=== PATIENT | female | born 1990 | race Caucasian/White ===

== ENCOUNTER 2017-04-30 20:02 | Emergency (ER) | payer MEDICAID ==
--- NOTE | 2017-04-30 22:05 | ED Physician Chart ---
ED Chief Complaint/HPI - Patient Information Date Seen:: 04/30/17 Time Seen:: 22:04 Chief Complaint:: Abscess History of Present Illness:: 27 yo female walked to ER due to left lower leg abscess with drainage for 1 week. Patient stated history of self-injecting drugs into left leg. She had previous abscess on the left lower leg 1 month ago. She denied fever or chills at this time. Vitals:: Vital Signs - 8 hr 04/30/17 20:05 Temp 98.0 F HR 110 RR 18 BP 138/92 O2 Sat % 100 ED Review of Systems - Review of Systems General/Constitutional: No fever, No chills Skin: Skin lesions Head: No headache Eyes: No loss of vision ENT: No earache Neck: No neck pain Cardio Vascular: No chest pain Pulmonary: No SOB GI: No nausea, No vomiting Musculoskeletal: Other (left leg wound pain) ED Past Medical History - Past Medical History Past Medical History: No significant medical hx Social History: Smoker, No Alcohol, Illicit Drug Use (heroin) Psychiatricy History: Bipolar, Other (Psychosis, Anxiety) Family Medical History - Family Member Mother History Unknown: Yes Ethnicity: Non- Living Status: Still Living Hx Family Cancer: No Hx Family Coronary Artery Disease: No Hx Family Congestive Heart Failure: No Hx Family Hypertension: No Hx Family Stroke: No Hx Family Diabetes: No Hx Family Seizures: No Hx Family Dementia: No Hx Family AIDS: No Hx Family HIV: No Hx Family COPD: No Hx Family Hepatitis: No Hx Family Psychiatric Problems: No Hx Family Tuberculosis: No Other Medical History: BIPOLAR ED Physical Exam - Physical Examination General/Constitutional: Awake Head: Atraumatic Eyes: PERRL ENMT: Nasal exam nl Neck: No nuchal rigidity Respiratory: Clear to Auscultation Cardio Vascular: RRR, No murmur, gallop, rubs, NL S1 S2 GI: No tenderness/rebounding/guarding Other Extremities comments:: Left lower leg abscess Neuro/Psych: No focal deficits ED Assessment - Assessment General Assessment: Left lower extremity cellulitis and abscess Assessment/Comments:: CBC, CMP Wound culture Ativan 0.5mg PO Vancomycin IV Zosyn IV D/c home Clindamycin 300mg q6h Levaquin 750mg qd F/u PCP or return to ER if symptoms worsen ED Septic Shock - . Is Septic Shock (SBP<90, OR Lactate>4 mmol\L) present?: No - <6hrs of presentation: Vital Signs: Vital Signs - 8 hr 04/30/17 20:05 Temp 98.0 F HR 110 RR 18 BP 138/92 O2 Sat % 100 ED Reassessment (Disposition) - Reassessment Reassessment Condition:: Improved - Patient Disposition Discharge/Transfer:: Home ED Discharge Plan - Patient Disposition Admit/Discharge/Transfer: PT DISCHARGED HOME Condition at Disposition: Stable Prescriptions: Clindamycin HCl [Cleocin*] 300 mg PO Q6H #112 cap Levofloxacin [Levaquin] 750 mg PO DAILY #42 tab Instructions: Abscess, [id number], Heroin Abuse and Withdrawal, Abscess, Care After Additional Instructions: FILL YOUR PRESCRIPTIONS AND TAKE THEM DIRECTED. FOLLOW UP WITH YOUR REGULAR DOCTOR OR AT YOUR NEAREST MEDICAL CLINIC IF NOT FEELING ANY BETTER.
[2017-04-30 23:21] LABS: % BASOPHILS 0.1 % (0.0-2.0); % EOSINOPHILS 1.8 % (0.0-5.0); % LYMPHOCYTES 24.8 % (20.0-50.0); % MONOCYTES 5.1 % (2.0-10.0); % NEUTROPHILS 68.2 % (40.0-80.0); HEMATOCRIT 38.9 % (41.0-60); HEMOGLOBIN 12.3 gm/dL (12-16); MEAN CELL VOLUME 79.6 fl (81-100); MEAN CORPUSCULAR HEMOGLOBIN 25.2 pg (27.0-31.0); MEAN CORPUSCULAR HGB CONC 31.7 pg (28.0-36.0); MEAN PLATELET VOLUME 7.2 fl; PLATELET COUNT 385 Th/cmm (150-400); RED BLOOD COUNT 4.89 Mil/cmm (3.80-5.10); RED CELL DISTRIBUTION WIDTH 15.2 % (11.5-20.0); WHITE BLOOD COUNT 9.3 Th/cmm (4.8-10.8)
[2017-04-30 23:22] LABS: EOSINOPHILE ABSOLUTE 0.1 Th/cmm (0.1-0.4); LYMPHOCYTE ABSOLUTE 1.2 Th/cmm (1.5-3.0); MONOCYTE ABSOLUTE 0.2 Th/cmm (0.3-1.0); NEUTROPHILE ABSOLUTE 3.3 Th/cmm (1.8-8.0)
[2017-04-30 23:32] LABS: ALB/GLOB RATIO 1.4 (1.0-1.8); ALBUMIN 4.2 gm/dL (3.7-5.3); ALKALINE PHOSPHATASE 97 U/L (34-104); ANION GAP 14.9 (7.0-16.0); BILIRUBIN,TOTAL 0.3 mg/dL (0.3-1.0); BUN - UREA NITROGEN 9 mg/dL (7-25); CALCIUM SERUM 9.4 mg/dL (8.6-10.3); CARBON DIOXIDE 20.7 mEq/L (21.0-31.0); CHLORIDE 104 mEq/L (98-107); CREATININE - SERUM 0.7 mg/dL (0.6-1.2); GFR AFRICAN-AMERICAN > 60.0 ml/min (>90); GFR NON AFRICAN-AMERICAN > 60.0 ml/min; GLUCOSE 84 mg/dL (70-105); POTASSIUM SERUM 3.6 mEq/L (3.5-5.1); SGOT 43 U/L (13-39); SGPT/ALT 34 U/L (7-52); SODIUM SERUM 136 mEq/L (136-145); TOTAL PROTEIN,SERUM 7.2 gm/dL (6.0-8.3)
[2017-05-01] MEDS ORDERED: Piperacillin Sodium/Tazobact 3.375 gm Vial IV ONE (00:01)
== END 2017-05-01 02:15 | disposition home or self-care (01) ==
LOC: ER 20:02
DX: L03.116 Cellulitis of left lower limb (principal); F17.200 Nicotine dependence, unspecified, uncomplicated; F31.9 Bipolar disorder, unspecified
CPT/HCPCS: 99284; 96365; 96368; 36415; 87075; 87205; 85025; 87070; 80053; J2543; J3370; Z7502

== ENCOUNTER 2017-07-18 20:10 | Inpatient (IN) | payer MEDICAID ==
[2017-07-18] MEDS ORDERED: Hydrocodone/APAP 10 mg/325 mg Tab PO STA (22:24)
[2017-07-18] MEDS ORDERED: Clindamycin 600mg/50mL 600 MG/50 ML BAG IV ONE (22:24)
[2017-07-18] MEDS ORDERED: Acetaminophen 500 MG TAB PO ONE (22:26)
[2017-07-18] MEDS ORDERED: Sodium Chloride 0.9% 1,000 ML IV ONE ×2 (22:30→23:50)
[2017-07-18] MEDS ORDERED: Hydrocodone/APAP 10 mg/325 mg Tab ONE (22:41)
[2017-07-18] MEDS ORDERED: Acetaminophen 500 MG TAB ONE (22:43)
[2017-07-18] MEDS ORDERED: Piperacillin Sodium/Tazobact 3.375 gm Vial IV ONE (22:43)
[2017-07-18 23:15] LABS: HEMOGLOBIN 11.6 gm/dL (12-16); RED CELL DISTRIBUTION WIDTH 13.8 % (11.5-20.0)
[2017-07-18 23:17] LABS: HEMATOCRIT 35.3 % (41.0-60); MEAN CELL VOLUME 75.1 fl (81-100); MEAN CORPUSCULAR HEMOGLOBIN 24.7 pg (27.0-31.0); MEAN CORPUSCULAR HGB CONC 32.9 pg (28.0-36.0); MEAN PLATELET VOLUME 7.3 fl; PLATELET COUNT 520 Th/cmm (150-400)
[2017-07-18 23:18] LABS: WHITE BLOOD COUNT 21.8 Th/cmm (4.8-10.8)
[2017-07-18 23:29] LABS: ALB/GLOB RATIO 0.8 (1.0-1.8); ALBUMIN 3.6 gm/dL (3.7-5.3); ALKALINE PHOSPHATASE 236 U/L (34-104); ANION GAP 13.1 (7.0-16.0); BILIRUBIN,TOTAL 0.5 mg/dL (0.3-1.0); BUN - UREA NITROGEN 10 mg/dL (7-25); CALCIUM SERUM 9.9 mg/dL (8.6-10.3); CHLORIDE 94 mEq/L (98-107); CHOLESTEROL 100 mg/dL (<200); CREATININE - SERUM 0.7 mg/dL (0.6-1.2); GFR AFRICAN-AMERICAN > 60.0 ml/min (>90); GFR NON AFRICAN-AMERICAN > 60.0 ml/min; GLUCOSE 112 mg/dL (70-105); HDL -HIGH DENSITY LIPOPROTEIN 21 mg/dL (23-92); POTASSIUM SERUM 3.1 mEq/L (3.5-5.1); SGOT 45 U/L (13-39); SGPT/ALT 32 U/L (7-52); SODIUM SERUM 129 mEq/L (136-145); TOTAL PROTEIN,SERUM 8.1 gm/dL (6.0-8.3); TRIGLYCERIDES 139 mg/dL (<150)
[2017-07-18 23:37] LABS: BAND NEUTROPHILE 1 % (0-10); LYMPHOCYTE 15 % (20-50); MONOCYTE 4 % (2-10); NEUTROPHILS 80 % (40-80); PLATELET ESTIMATE INCREASED PLATELETS (NORMAL); TOTAL CELLS COUNTED 100
[2017-07-18] MEDS ORDERED: Potassium Chloride 20 mEq ER Tab PO ONE (23:52)
--- NOTE | 2017-07-18 23:52 | ER Physician Documentation ---
DATE OF SERVICE: 07/18/2017 Full code. Body surface area is 1.5 meters. I have seen this patient a few weeks ago, I do not remember, she has had at that time, some superficial infection and that she is a heroin abuser and she has been shooting heroin everywhere in the body that she can find a spot and leading to cellulitis, abscesses all over one in the right leg followed by a big cellulitis area with big swelling. On the right leg about 2 abscesses seen; on the left leg there is one abscesses seen. On the left side and abdomen one abscess is seen. On the right side in the lateral part of the back there is an abscess is seen. The patient is febrile. The patient is looking sick. She seems to be malnourished. She seems to be dehydrated. She is shooting heroin almost every day for the past 3 years. HISTORY OF PRESENT ILLNESS: She smokes half a pack of cigarettes. She does not consume alcoholic beverages, but she shoots heroin only and her 2 friends also has come over with broken needles and things and also has abscesses which are not seen, but I will be seeing them pretty soon. The patient in my opinion immediately needs admission to the hospital. Review of the patient's history of present illness is essentially the same as mentioned above, 12 point review of system is essentially benign and negative. She is adequately built, but very, very malnourished state. She looks skinny. Her lab workup does not show any fever at the present moment, I do not even have her labs available at the present moment to me. The patient is nervous. She is a mother of 2 children, 4 and 5, 2 daughters. She lives with her mother. Father, she does not know much about her father. A 12-point review of system is essentially benign and negative. She does not have COPD, emphysema, bronchitis. No heart problem, no bacterial endocarditis, but we might need to get 2D echo done to look for vegetations. The patient has been shooting all narcotics, so does her friends. She has no evidence of any cirrhotic liver, no history of any cancer, tumors, any bacterial endocarditis or any peritonitis. She is so far not had any peritoneal penetration, so far point. PHYSICAL EXAMINATION: The patient appears to be awake, alert, oriented. She is anxious. She is nervous. She is aware that she is being admitted to the hospital. She has been told clearly that she needs admission. She has four definite abscess with evidence of cellulitis. We cannot even wait for patient's lab to come back. We will need to start antibiotics right away and lab workup has been ordered. Blood cultures have been ordered point. The patient's lactic acid level has been ordered. The patient has been given clindamycin, vancomycin, Flagyl and Zosyn has been given to the patient. CHEST: Clear. Tracheal rings under fairly good air entry in both lungs. NECK: Supple, with no meningeal signs. HEART: Reveals normal heart sounds. No masses or tumors. ABDOMEN: Soft, benign and negative as multiple abscesses in the belly is seen one about 1 inch size on the left side, one on the right side, a size 2 abscesses in the leg on the right side. Multiple injuries lily on both the lower extremities, etc. is seen. SOCIAL HISTORY: The patient is using cocaine day in and day out for the past 3 years. The patient is two children and she could not answer me what would happen to the children in this current status of her affair. CLINICAL IMPRESSION: 1. The patient has multiple abscesses with cellulitis. 2. Malnourished status. 3. Cocaine abuse or heroin abuser with injection of the abuse of the cocaine anywhere in the body that she can find. She cannot find any vein, so she is shooting in the thigh muscles, muscles in the belly, muscles in the buttock, muscles in the left gluteus and, the left calf area leg area, multiple injuries. Her friends are here also with same conditions. So I have ordered antibiotics and call Dr. Zhou; so once his answers the pager, we will try to admit the patient before even the lab results are available. JOB# [id number]
[2017-07-19] MEDS ORDERED: Clindamycin 150 mg/mL 4mL Vial ONE (00:37)
--- NOTE | 2017-07-19 00:51 | ER Physician Documentation ---
DATE OF SERVICE: 07/18/2017 CODE STATUS: Full code. HISTORY OF PRESENT ILLNESS: She is a patient who has no line. She is a drug abuser. She is taking heroin, only in the IV. Now, she cannot have any IV sites, so she is injecting everywhere in the legs, in the arms, both legs, in the buttocks area, in the stomach area, leading to multiple abscesses. An IV site could not be obtained and hence after explaining to her all the risks, complications, and alternatives about the procedure of insertion of a triple-lumen catheter, I inserted a triple-lumen catheter from the right groin under complete aseptic precautions using mask, gown, and sterile gloves, etc., and with one stick got the vein and then dilated and then put the wire in through the needle area. I then took a small cut above the wire and then dilated that area with 2 different dilators. After that, the dilators were removed and a triple-lumen catheter was inserted. Usually the triple-lumen catheter comes out in the middle of the three ports of the triple-lumen catheter and this blood was aspirated from there and then cork-type thing that is connected to the triple lumen was connected. Blood was aspirated and then flushed up and then this was again closed down. The other 2 ports were also aspirated and then flushed with normal saline and then I locked it up. I informed the nurse, Rodri, who is taking care of the patient to please start the IV as soon as possible because this is a life and situation, so he has gone over there and hopefully he will put the thing. I sutured the triple-lumen catheter with what looks like 3-0 curved needle and once again a sterile OpSite dressing was applied and more dressings will be applied to cover up the area because she has a small bikini type of underwear and we do not want the abscess or infection to go into this site at all that is why this procedure was carried out and a dressing needs to be applied over there. So far so good, everything went smoothly. JOB# [id number]
[2017-07-19] MEDS ORDERED: Potassium Chloride 20 mEq ER Tab PO ONE (00:54)
--- NOTE | 2017-07-19 03:24 | ER Physician Documentation ---
DATE OF SERVICE: HISTORY OF PRESENT ILLNESS: A 27-year-old female. The patient had blood collected on 07/18/2017. We got the results. In the meantime, the patient was given antibiotics. All the labs were done and I inserted also a triple lumen catheter from the right groin after taking her consent, all the risks, complications, alternatives, indications for the procedure were explained to the patient. She is narcotic heroin abuser injecting heroin directly into the muscle, the patient got multiple abscesses at difference sites. We ordered the labs showing white count to be 21.8, RBC 4.70, hemoglobin 11.6, hematocrit 35.3, mean corpuscular volume is 75.1, mean corpuscular hemoglobin 24.7, platelet count is 520,000, and manual differential count was done. Lactic acid was 1.73. The patient's sodium was 129, potassium was 3.1, CO2 of 29, anion gap 25, glucose of 112, BUN is 10, creatinine ____, the patient's BUN and creatinine ratio is 14.3, calcium is 9.9, total protein is 8.1, albumin is 3.6, globulin is 4.5, albumin globulin ratio 0.8, SGOT 0.5, ALT is 32, alkaline phosphatase is 236. Cholesterol 100, triglycerides 139, HDL is 21, LDL is 52. The patient has been getting antibiotic and the patient will be admitted. Dr. Zhou has been called. FINAL DIAGNOSES: Multiple abscesses on the lower extremities with cellulitis and abscess in the right gluteal area, in the left gluteal area, and another two abscesses in the calf muscle where she injected heroin, which she has been doing for the past 3 years and so the diagnosis is heroin abuse for 3 years and multiple abscesses as a result of injecting. I do not know what kind of needle, but that has led to the multiple abscess formation. The patient has lost weight and the patient is a poorly nourished, adequately built. The patient's magnesium is 2.2, which is within normal limits point and a TSH level is 0.59. The patient will be admitted under Dr. Zhou, he will take care of the patient and give antibiotics and do supportive care on the patient. JOB# [id number]
[2017-07-19 06:23] LABS: HEMATOCRIT 28.1 % (41.0-60); MEAN CORPUSCULAR HEMOGLOBIN 24.5 pg (27.0-31.0); MEAN CORPUSCULAR HGB CONC 32.9 pg (28.0-36.0)
[2017-07-19 06:38] LABS: % BASOPHILS 0.6 % (0.0-2.0); % EOSINOPHILS 0.9 % (0.0-5.0); % MONOCYTES 7.5 % (2.0-10.0); BASOPHILE ABSOLUTE 0.1 Th/cumm (0-0.2); EOSINOPHILE ABSOLUTE 0.2 Th/cmm (0.1-0.4); HEMOGLOBIN 9.3 gm/dL (12-16); LYMPHOCYTE ABSOLUTE 1.5 Th/cmm (1.5-3.0); MEAN CELL VOLUME 74.4 fl (81-100); MEAN PLATELET VOLUME 7.5 fl; MONOCYTE ABSOLUTE 1.4 Th/cmm (0.3-1.0); NEUTROPHILE ABSOLUTE 15.9 Th/cmm (1.8-8.0); PLATELET COUNT 440 Th/cmm (150-400); RED BLOOD COUNT 3.78 Mil/cmm (3.80-5.10); RED CELL DISTRIBUTION WIDTH 13.4 % (11.5-20.0)
[2017-07-19 06:48] LABS: WHITE BLOOD COUNT 19.1 Th/cmm (4.8-10.8)
[2017-07-19 06:59] LABS: ANION GAP 10.7 (7.0-16.0); BUN - UREA NITROGEN 9 mg/dL (7-25); CALCIUM SERUM 8.5 mg/dL (8.6-10.3); CARBON DIOXIDE 22.8 mEq/L (21.0-31.0); CHLORIDE 107 mEq/L (98-107); CREATININE - SERUM 0.6 mg/dL (0.6-1.2); GFR AFRICAN-AMERICAN > 60.0 ml/min (>90); GFR NON AFRICAN-AMERICAN > 60.0 ml/min; GLUCOSE 134 mg/dL (70-105); POTASSIUM SERUM 3.5 mEq/L (3.5-5.1); SODIUM SERUM 137 mEq/L (136-145)
[2017-07-19 07:01] VITALS: BP 95/56
--- NOTE | 2017-07-19 08:42 | History and Physical ---
History of Present Illness - HPI Chief Complaint: Multiple abscess HPI: 27 y/o female who presents to [facility] ER with multiple abscess with cellulitis to the lower extremities bilaterally and abdomen and back. Patient has a history of IVDA heroin/cocaine and was noted to injecting herself to the lower extremities, abdomen and back. Initial labwork reveals WBC 21.8 H/H 11.6/35.3 platelet 520K Na 129 K 3.1 Patient was subsequently admitted with Multiple abscess cellulitis hyponatremia hypokalemia IVDA heroine/cocaine Vital Signs: Last Vital Signs Temp 98.6 F 07/19/17 06:17 Pulse 95 07/19/17 06:17 Resp 18 07/19/17 06:17 BP 95/56 07/19/17 07:01 Pulse Ox 98 07/19/17 06:17 Past Medical History Cardiovascular: Report: No Pertinent Hx Pulmonary: Report: No Pertinent Hx ACQUISITION ADVISOR: Report: No Pertinent Hx GI: Report: No Pertinent Hx Psych: Report: No Pertinent Hx Musculoskeletal: Report: No Pertinent Hx Infectious Disease: Report: No Pertinent Hx Renal/: Report: No Pertinent Hx Endocrine: Report: No Pertinent Hx Dermatology: Report: No Pertinent Hx - Past Surgical History Past Surgical History: No pertinent Hx Family Medical History - Family Member Mother History Unknown: Yes Ethnicity: Non- Living Status: Still Living Hx Family Cancer: No Hx Family Coronary Artery Disease: No Hx Family Congestive Heart Failure: No Hx Family Hypertension: No Hx Family Stroke: No Hx Family Diabetes: No Hx Family Seizures: No Hx Family Dementia: No Hx Family AIDS: No Hx Family HIV: No Hx Family COPD: No Hx Family Hepatitis: No Hx Family Psychiatric Problems: Yes (mother (Bipolar)) Hx Family Tuberculosis: No Social History Smoke: <1 pack per day (1/2 pack per day) Alcohol: None Drugs: Cocaine (IVDA), Heroin Lives: Alone - Medications Home Medications: Home Medication Medication Instructions Recorded Type Ibuprofen 600 mg PO 07/18/17 History - Allergies Allergies/Adverse Reactions: Allergies Allergy/AdvReac Type Severity Reaction Status Date / Time No Known Allergies Allergy Verified 04/30/17 23:16 Review of Systems - Review of Systems Constitutional: Report: No Significant Eyes: Report: No Significant ENT: Report: No Significant Respiratory: Report: No Significant Cardiovascular: Report: No Significant Gastrointestinal: Report: No Significant Genitourinary: Report: No Significant Musculoskeletal: Report: No Significant Skin: Report: No Significant Neurological: Report: No Significant Physical Exam - Physical Exam HEENT: Report: Ears Nose Throat within normal limits, Pharnyx within normal limits Neck: Report: Within normal limits Cardiovascular Systems: Report: +s1/s2 noted, Regular, Rate and Rhythm Respiratory: Report: Breath Sounds are within normal limits Abdomen: Report: Non-tender to palpation Back: Report: Inspection of back is within normal limits. - Lab Results All Lab Results last 24 hours: Laboratory Results - last 24 hr 07/19/17 07/19/17 05:45 05:45 WBC 19.1 H RBC 3.78 L Hgb 9.3 L Hct 28.1 L D MCV 74.4 L MCH 24.5 L MCHC Differential 32.9 RDW 13.4 Plt Count 440 H MPV 7.5 Neutrophils % 83.0 H Lymphocytes % 8.0 L Monocytes % 7.5 Eosinophils % 0.9 Basophils % 0.6 Sodium 137 Potassium 3.5 Chloride 107 Carbon Dioxide 22.8 Anion Gap 10.7 BUN 9 Creatinine 0.6 Est GFR ( Amer) > 60.0 Est GFR (Non-Af Amer) > 60.0 BUN/Creatinine Ratio 15.0 Glucose 134 H Calcium 8.5 L - Assessment Assessment: Leukocytosis Sepsis Hypotension Multiple abscess Lower extremities B/L, abdomen, and back hyponatremia hypokalemia malnutrition anemia Possible GIB Possible Endocarditis - Plan Plan: CBC,CMP,PT/INR, HIV, Acute Hepatitis panel ID consult Dr Willy Chow Cardiology consult Dr. Rona Chow GI consult Dr. Roberson General Surgeon Dr. Burns Continue Zosyn and Vancomycin IV Blood Cultures x2
[2017-07-19 08:56] LABS: INR 1.12 (0.5-1.4); PROTHROMBIN TIME (TEST) 11.7 SECONDS (9.5-11.5)
[2017-07-19] MEDS ORDERED: D5-0.9NS w/40 mEq KCL 1,000 ML IV SCH ×2 (09:00)
--- NOTE | 2017-07-19 10:10 | Consultation ---
DATE OF CONSULTATION: 07/19/2017 INPATIENT GI CONSULTATION CONSULTING PHYSICIAN: . REASON FOR CONSULTATION: Anemia. HISTORY OF PRESENT ILLNESS: The patient is a 27-year-old female with medical history significant for ongoing heroin abuse who is admitted to the hospital with a draining abscess on her lower right leg as well as cellulitis changes of her abdomen and back. The patient sought medical care because of drainage from her abscesses and is interested in trying to come off heroin as well, although she has not been able to do this successfully in the past. GI consultation was placed as hemoglobin was noted to be 11.6 and then 9 this morning. The patient denies any ongoing red blood per rectum or black colored stool or vomiting at all at this point. She denies any previous GI bleeding issues as well. At this point, she is mostly concerned about withdrawing from heroin. She is repeatedly asking for methadone. PAST MEDICAL HISTORY: Heroin addiction, multiple cellulitis episodes, and multiple abscesses from heroin injection. PAST SURGICAL HISTORY: The patient denies any abdominal surgeries. FAMILY HISTORY: Noncontributory. SOCIAL HISTORY: The patient is an IV heroin user, also uses cocaine and drinks alcohol socially. REVIEW OF SYSTEMS: A 12-point review of systems was performed with the patient and is negative except the pertinent positives that are mentioned in the history of present illness. CURRENT MEDICATIONS: Include clindamycin, morphine as needed, Zosyn and vancomycin. PHYSICAL EXAMINATION: VITAL SIGNS: Blood pressure is 95/56, pulse 95 beats per minute, temperature 98.6, and oxygenation 98% on room air. GENERAL: The patient is lying in bed. She is alert and oriented x3. She appears anxious. HEENT: Normocephalic, atraumatic appearing head. No scleral icterus. Pupils are equal and reactive to light. Extraocular muscles are intact. NECK: Supple. There is no JVD or thyromegaly. LUNGS: Clear to auscultation bilaterally. CARDIOVASCULAR: S1, S2 are present, regular rate and rhythm. ABDOMEN: Soft, nontender. There are cellulitic changes on the abdomen and back. No guarding. EXTREMITIES: There is an abscess on the right lower extremity. LABORATORY DATA: White blood cell count 19.1, hemoglobin 9.3, admission value 11.6, platelet count is uncalculable, just reports increased platelets. INR is 1.1. Sodium is 137, BUN is 9, creatinine 0.6, total bilirubin 0.5, AST 45, ALT 32, alkaline phosphatase 236, total protein is 8.1. HIV is negative. No abdominal imaging has been performed. IMPRESSION: This is a 27-year-old female who is an IV heroin user as well as cocaine user, who was admitted to the hospital with a cellulitis in multiple areas of her body as well as abscess from heroin injection. 1. Heroin use, ongoing problem. 2. Cellulitis. 3. Abscesses of multiple extremities. 4. Anemia. DISCUSSION: I doubt that the patient is having an ongoing GI bleed at this time given the lack of overt GI bleeding signs. The etiology of her anemia is probably multifactorial and related to both nutritional deficiencies and menstruation given the fact that she is a young woman as well as an IV drug user and not eating very well. RECOMMENDATIONS: 1. I did not recommend endoscopy at this time without any signs of overt gastrointestinal bleeding. 2. Management will be focused on treatment of her cellulitis and abscesses by the primary hospitalist. 3. Iron supplementation. 4. If the patient does develop signs of overt GI bleeding, we can revisit the idea of endoscopy during this hospitalization. Thank you for allowing me to participate in this patient's care. GI is available to see this patient as needed. Please call us with any questions. [facility]# [id number]
[2017-07-19] MEDS: D5-0.9NS w/40 mEq KCL 1,000 ML IV SCH (12:21)
--- NOTE | 2017-07-19 13:00 | History & Physical ---
ADMIT DATE: CHIEF COMPLAINT: "Abscess on my foot." HISTORY OF PRESENT ILLNESS: A 27-year-old female with a longstanding history of heroin addiction, presented to Emergency Room for right leg swelling where she was injecting heroin and noted that site become red, swollen, and painful. The patient was evaluated by Emergency Room MD and subsequently admitted to the hospital for further treatment. PAST MEDICAL HISTORY: Negative. MEDICATIONS AT HOME: Ibuprofen. ALLERGIES: NONE. SOCIAL HISTORY: Lives with family. The patient is unemployed. The patient smokes cigarette, drinks alcohol, and use heroin and cocaine. FAMILY MEDICAL HISTORY: Remarkable for psychotic disorder. REVIEW OF SYSTEMS: The patient having significant amount of pain at the abscess site. Denies any chest pain, abdominal pain, nausea, vomiting, diarrhea, dysuria, hematuria, hematochezia, or melena. No seizure or syncopal episode. PHYSICAL EXAMINATION: GENERAL: Alert, awake, lying in the bed without any acute distress. VITAL SIGNS: Temperature 98.6, pulse 95, respiratory rate 18, and blood pressure 100/56. HEENT: Normocephalic and atraumatic. Extraocular muscles are intact. Tongue was pink and coated. Poor dentition noted. No oral lesion. No exudate. No sinus tenderness. External auditory canal and tympanic membranes are well visualized. NECK: Supple. No JVD. No hepatojugular reflex. No lymphadenopathy, thyromegaly, or carotid bruit. HEART: Both heart sounds are regular. No S3, no S4, no murmur. CHEST: Lung equal in expansion. No wheezing, no crackles. ABDOMEN: Soft. No guarding, no rigidity. Bowel sounds are present. No palpable mass. EXTREMITIES: Remarkable for abscess involving right calf muscles noted with surrounding tissue erythematous. Peripheral pulses are +1. Multiple injecting hedrick also noted in the upper and lower extremity. AVAILABLE DIAGNOSTIC DATA: Has been reviewed. CLINICAL IMPRESSION: 1. Injection site abscess after injecting cocaine and heroin. 2. Leukocytosis, most likely from infections. 3. Microcytic hypochromic anemia. 4. Polysubstance abuse. PLAN: 1. Admit this patient to med-surg floor. 2. IV antibiotic, vancomycin, and Zosyn. 3. HIV, hepatitis panel. 4. Infectious Disease consultation. 5. Psychiatric consultation. 6. Pain control with morphine for now. 7. Substance abuse management as well as possible underlying depression management, deferred to psychiatrist 8. The patient will require further workup based on further details are available. Blood culture has been requested at this time 2 sets and will pursue further. JOB# [id number]
[2017-07-19] MEDS ORDERED: Venelex 60gm Tube TP ONE (14:06)
[2017-07-19] MEDS: Clindamycin 600mg/50mL 600 MG/50 ML BAG IV SCH ×3 (15:03→21:56)
--- NOTE | 2017-07-19 16:13 | Operative Report ---
DATE OF SURGERY: 07/19/2017 PREOPERATIVE DIAGNOSES: 1. Abscess, right calf size 2 cm superiorly and the lower one is 1 cm with undermining about 10 cm, so with abscess. 2. Abscess, left posterior leg, 2 cm. 3. Abscess, right hip, 3 cm stage 3. 4. Abscess, left hip, 3 stage size is 1 cm, 2 cm and 3 cm, stage II all. 5. Right leg abscess is stage II and left leg abscess also stage 2. 6. Heroin and cocaine addiction. POSTOPERATIVE DIAGNOSES: 1. Abscess, right calf size 2 cm superiorly and the lower one is 1 cm with undermining about 10 cm, so with abscess. 2. Abscess, left posterior leg, 2 cm. 3. Abscess, right hip, 3 cm stage 3. 4. Abscess, left hip, 3 stage size is 1 cm, 2 cm and 3 cm, stage II all. 5. Right leg abscess is stage II and left leg abscess also stage 2. 6. Heroin and cocaine addiction. OPERATION DONE: 1. Excisional debridement of right leg abscess with application of iodoform gauze. 2. Excisional debridement of left leg ulcer stage 2 with application of Venelex. 3. Excisional debridement, right hip ulcer with Venelex application. 4. Debridement of ulcers, left hip with Venelex application. SURGEON: Grant Clayton M.D. ANESTHESIA: MAC. ANESTHESIOLOGIST: Dr. Canela. ESTIMATED BLOOD LOSS: None. PROCEDURE: The patient was given heavy IV sedation. The right leg abscess was prepped with Betadine and draped. The two abscesses with a bridge of skin was joined together and the subcutaneous tissue probed and an undermining underneath the toes. A 10 cm diameter was found and aspirated and cultures taken. This was packed with iodoform gauze. Excisional debridement was carried out in the left leg, the right hip and the left hip. The patient tolerated the procedure well. [facility]# [id number]
--- NOTE | 2017-07-19 16:15 | Consultation ---
DATE OF CONSULTATION: 07/19/2017 REFERRING PHYSICIAN: Dr. Barreto. REASON FOR CONSULTATION: Multiple abscesses. Thank you for referring this patient to me. HISTORY OF PRESENT ILLNESS: This is a 27-year-old admitted drug addict to cocaine and heroin, has been injecting herself in multiple sites and has developed abscesses. She has been to apparently a rehab facility in the past. She also smokes and drinks. PHYSICAL EXAMINATION: Now, there are 3 abscesses in the left hip area, one large one in the right hip. Large multiple abscesses in the right posterior calf with possibility of deep abscess which needs to be drained. There is a smaller abscess in the left calf. LABORATORY DATA: WBC on this admission was 21,800, hemoglobin 9.3, platelet count is 520. Chemistry: Slight elevation of the AST and ALT. Blood sugar is 112. PLAN: The patient has agreed to debridement of multiple infected areas and likely drain abscess in the right calf region. Psych evaluation has been done and the patient needs referral to a rehab center. JOB# [id number]
[2017-07-19] MEDS: Morphine Sulfate 4 mg/mL 1mL Syr IVP PRN (21:56)
--- NOTE | 2017-07-19 22:40 | Consultation ---
Consult Note - Consult Note Service Date: 07/19/17 Referring Physician: Kirk Barreto Consult Note: PHYSICIAN Consultation Note: Date of Admission: 07/18/17 Purpose of Consultation: Chief Complaint: Patient RAMSES WELCH was admitted to [facility] with CELLULITIS. History of Present Illness: 27 year old female with history of IVDA was skin popping on her right leg and developed large abscess in right calf muscle and developed huge swelling. On initial evaluation, her temperature was 99.2 degree F and WBC Count was 21k. I ad D was performed by Dr Grant thakkar she is feeling somewhat better. Still, she is unable to walk on her own. Past Medical History: Abscesses, IVDA. Diagnoses SEPSIS, UNSPECIFIED ORGANISM (07/18/17) ANEMIA, UNSPECIFIED (07/18/17) UNSPECIFIED PROTEIN-CALORIE MALNUTRITION (07/18/17) HYPO-OSMOLALITY AND HYPONATREMIA (07/18/17) HYPOKALEMIA (07/18/17) OPIOID USE, UNSPECIFIED, UNCOMPLICATED (07/18/17) HYPOTENSION, UNSPECIFIED (07/18/17) GASTROINTESTINAL HEMORRHAGE, UNSPECIFIED (07/18/17) CUTANEOUS ABSCESS OF ABDOMINAL WALL (07/18/17) CUTANEOUS ABSCESS OF BACK [ANY PART, EXCEPT BUTTOCK] (07/18/17) CUTANEOUS ABSCESS OF RIGHT LOWER LIMB (07/18/17) CUTANEOUS ABSCESS OF LEFT LOWER LIMB (07/18/17) CELLULITIS OF UNSPECIFIED PART OF LIMB (07/18/17) Allergies Allergy/AdvReac Type Severity Reaction Status Date / Time No Known Allergies Allergy Verified 04/30/17 23:16 Vital Signs Temp 98 F 07/19/17 20:00 Pulse 108 07/19/17 20:00 Resp 18 07/19/17 20:00 BP 107/67 07/19/17 20:00 Pulse Ox 99 07/19/17 20:00 Intake & Output 07/19/17 07/19/17 07/20/17 06:59 18:59 06:59 Intake Total 2350 50 250 Balance 2350 50 250 Weight (lbs) 55.338 kg 55.338 kg Intake: Intake, IV Amount 2350 50 250 Clindamycin 600mg/50mL 50 600 mg In 50 ml @ 100 mls /hr IV Q8HR [facility] Rx#: [id number] Vancomycin HCl 1 gm In 250 Sodium Chloride 0.9% 250 ml @ 165 mls/hr IV Q12H [facility] Rx#:[id number] Laboratory Results - last 24 hr 07/19/17 07/19/17 07/19/17 05:15 05:15 05:45 WBC 19.1 H RBC 3.78 L Hgb 9.3 L Hct 28.1 L D MCV 74.4 L MCH 24.5 L MCHC Differential 32.9 RDW 13.4 Plt Count 440 H MPV 7.5 Neutrophils % 83.0 H Lymphocytes % 8.0 L Monocytes % 7.5 Eosinophils % 0.9 Basophils % 0.6 PT 11.7 H INR 1.12 Sodium Potassium Chloride Carbon Dioxide Anion Gap BUN Creatinine Est GFR ( Amer) Est GFR (Non-Af Amer) BUN/Creatinine Ratio Glucose Calcium Magnesium 2.1 Beta HCG, Quant HIV 1&2 Antibody Screen 07/19/17 07/19/17 07/19/17 05:45 05:45 12:52 WBC RBC Hgb Hct MCV MCH MCHC Differential RDW Plt Count MPV Neutrophils % Lymphocytes % Monocytes % Eosinophils % Basophils % PT INR Sodium 137 Potassium 3.5 Chloride 107 Carbon Dioxide 22.8 Anion Gap 10.7 BUN 9 Creatinine 0.6 Est GFR ( Amer) > 60.0 Est GFR (Non-Af Amer) > 60.0 BUN/Creatinine Ratio 15.0 Glucose 134 H Calcium 8.5 L Magnesium Beta HCG, Quant < 1 H HIV 1&2 Antibody Screen NEGATIVE Home Medication Medication Instructions Recorded Type Ibuprofen 600 mg PO 07/18/17 History Current Medications Generic Name Dose Route Start Last Admin Trade Name Ramiro PRN Reason Stop Dose Admin Clindamycin Phosphate 600 mg in 50 mls @ 100 mls/hr 07/19/17 05:00 07/19/17 21:56 Cleocin Pb IV 09/17/17 04:59 100 mls/hr Q8HR JONELLE Administration Piperacillin Sod/Tazobactam 50 mls @ 100 mls/hr 07/19/17 06:00 07/19/17 17:41 Sod 3.375 gm/ Sodium Chloride IV 09/17/17 05:59 Not Given Q6HR JONELLE Potassium Chloride/Dextrose/Sod Cl 1,000 mls @ 100 mls/hr 07/19/17 10:00 12:21 D5-0.9ns W/40 Meq Kcl IV 09/17/17 09:59 100 mls/hr .Q10H JONELLE Administration Vancomycin HCl 1 gm/ Sodium 250 mls @ 165 mls/hr 07/19/17 16:00 07/19/17 21: 57 Chloride IV 09/17/17 15:59 Infused Q12H JONELLE Infusion Miscellaneous 1 ea 07/19/17 14:57 Vancomycin Iv Per Pharmacy 09/17/17 14:56 PRN PRN PROTOCOL Morphine Sulfate 2 mg 07/19/17 09:32 07/19/17 21:56 Morphine IVP 09/17/17 09:31 2 mg Q4HR PRN Administration pain Review of Systems: A 12 point ROS was reviewed with the pertinent positive and negatives noted in the HPI. Social History Smoking Status Current every day smoker Drug Use HEROIN 04/15/2017 Alcohol Use No Family Medical History Family Medical History Start: 07/19/17 03: 28 Freq: ONCE Status: Active Document 07/19/17 04:57 [email or web address] (Rec: 07/19/17 05:12 [email or web address] MIKE-WOW -MS4) Family Medical History Mother History Unknown Yes Ethnicity Non- Living Status Still Living Hx Family Cancer No Hx Family Coronary Artery Disease No Hx Family Congestive Heart Failure No Hx Family Hypertension No Hx Family Stroke No Hx Family Diabetes No Hx Family Seizures No Hx Family Dementia No Hx Family AIDS No Hx Family HIV No Hx Family COPD No Hx Family Hepatitis No Hx Family Psychiatric Problems Yes: mother (Bipolar) Hx Family Tuberculosis No Physical Exam: General: Comfortable, no t in any acute distress. well develoepd, and well nourished. HEENT: Head: NC NT. Oral cavilty moist, pink tongue. Eyes: pallor present. no icterus. Pupil PERRLA. EOMI. Neck: Supple, on JVD, no carotid bruit. Cardio: S1 and S2 WNL. no murmur, no gallop. Respiratory: Vesicualr breath sounds.No crackle no wheezing. Abdominal: Soft NT ND BS. No hepatosplenomegaly appreciated. Genital/Urinary: WNL. Extremities: NCCE. pulses are palpable in all 4 limbs. There is huge swelling with tenderness of the right leg. There is a dressing on the surgical incision. Neurological: Alert awake, oriented, mildly confused. Assessment: 1. Sepsis on presentation. 2. Abscess right leg.Cellulitis of the right leg. I strongly suspect myositis of the right leg. 3. Left leg ulcer. 4. h/o IVDA. Plan: Continue vanco IV and zosyn, depending on the culture report, will define final antibiotic therapy. If her right leg swelling persists in next 2 to three days, will order Ct or MRI of the right leg. patient will need at least 2 weeks of antibiotic therapy. HIV screen and hepatitis panel. Thank you, Dr Kirk Barreto for involving me in taking care of this patient. Signed, Willy Chow M.D. 07/19/[id number]
[2017-07-20] MEDS: Morphine Sulfate 4 mg/mL 1mL Syr IVP PRN (02:59)
[2017-07-20] MEDS: Clindamycin 600mg/50mL 600 MG/50 ML BAG IV SCH ×3 (04:57→22:11)
[2017-07-20 07:39] LABS: HEMOGLOBIN 8.8 gm/dL (12-16); MEAN CORPUSCULAR HEMOGLOBIN 24.7 pg (27.0-31.0); MONOCYTE ABSOLUTE 0.9 Th/cmm (0.3-1.0)
--- NOTE | 2017-07-20 07:43 | Consultation ---
DATE OF CONSULTATION: 07/20/2017 PATIENT'S AGE: 27. SEX: Female. PHYSICIAN: Dr. Barreto. TOOL MAKER APPRENTICE: Dr. Sinclair. REASON FOR THE CONSULT: Heroin use. HISTORY OF PRESENT ILLNESS: The patient is a 27-year-old female with history of heroin abuse. The patient admitted to the hospital because of multiple abscesses in her lower extremities. The patient admitted that she has been using heroin and last time she used was about 4 days ago and she has been injecting it. The patient also went to a drug rehab, but she was not staying clean except for a short time and after that out. She currently lives with her parents. She also has 2 children that are living with their father. PAST PSYCHIATRIC HISTORY: The patient denies except for rehab. PAST MEDICAL HISTORY: Multiple abscesses in lower extremities. SOCIAL HISTORY: The patient is single, never . She denies any current legal issues or abuse issues. She admitted to smoking half pack of cigarette per day and denies any drinking or any other street drug use. ALLERGIES: No known allergies. MENTAL STATUS EXAM: The patient appears older than stated age. Anxious. Flat affect. Seems to be slightly depressed. The patient denies any hallucinations or delusions or suicide or homicide. The patient is alert and oriented to time, place, person, and situation. Intact immediate, recent and remote memories. ASSESSMENT: PRIMARY DIAGNOSIS: Heroin abuse disorder. TREATMENT PLAN: We will monitor the patient's condition for any possible detox. We will continue her treatment. Also we will recommend outpatient rehabilitation after her discharge. Not suicidal or homicidal, and the patient can be discharged when medically stable. [facility]# [id number]
[2017-07-20 07:46] LABS: % EOSINOPHILS 1.4 % (0.0-5.0); % LYMPHOCYTES 10.4 % (20.0-50.0); % MONOCYTES 5.1 % (2.0-10.0); % NEUTROPHILS 83.1 % (40.0-80.0); EOSINOPHILE ABSOLUTE 0.3 Th/cmm (0.1-0.4); HEMATOCRIT 26.7 % (41.0-60); LYMPHOCYTE ABSOLUTE 1.9 Th/cmm (1.5-3.0); MEAN CELL VOLUME 74.8 fl (81-100); MEAN CORPUSCULAR HGB CONC 33.1 pg (28.0-36.0); MEAN PLATELET VOLUME 7.7 fl; NEUTROPHILE ABSOLUTE 15.4 Th/cmm (1.8-8.0); PLATELET COUNT 423 Th/cmm (150-400); RED BLOOD COUNT 3.57 Mil/cmm (3.80-5.10)
[2017-07-20 07:51] LABS: WHITE BLOOD COUNT 18.5 Th/cmm (4.8-10.8)
[2017-07-20 07:56] LABS: ALB/GLOB RATIO 0.8 (1.0-1.8); ALBUMIN 2.5 gm/dL (3.7-5.3); ALKALINE PHOSPHATASE 147 U/L (34-104); ANION GAP 10.5 (7.0-16.0); BILIRUBIN,TOTAL 0.2 mg/dL (0.3-1.0); BUN - UREA NITROGEN 9 mg/dL (7-25); CALCIUM SERUM 8.4 mg/dL (8.6-10.3); CARBON DIOXIDE 21.8 mEq/L (21.0-31.0); CHLORIDE 107 mEq/L (98-107); CREATININE - SERUM 0.4 mg/dL (0.6-1.2); GFR AFRICAN-AMERICAN > 60.0 ml/min (>90); GFR NON AFRICAN-AMERICAN > 60.0 ml/min; GLUCOSE 110 mg/dL (70-105); POTASSIUM SERUM 3.3 mEq/L (3.5-5.1); SGOT 27 U/L (13-39); SGPT/ALT 21 U/L (7-52); SODIUM SERUM 136 mEq/L (136-145); TOTAL PROTEIN,SERUM 5.5 gm/dL (6.0-8.3)
[2017-07-20 08:10] LABS: IRON LC 10 ug/dL (27-159); TIBC (LC) 267 ug/dL (250-450); UIBC 257 ug/dL (131-425)
[2017-07-20 08:10] LABS: HEP A AB IGM Negative (Negative); HEP B CORE IGM Negative (Negative); HEP B SURFACE AG QL Negative (Negative); HEP C ANTIBODY >11.0 s/co ratio (0.0-0.9)
[2017-07-20] MEDS ORDERED: Potassium Chloride 20 mEq ER Tab PO ONE (09:59)
--- NOTE | 2017-07-20 10:05 | General Progress Note ---
Subjective - Review of Systems Subjective: Patient is seen and examined. Patient looks very comfortable today. Discussed with surgeon about treatment plan. Consultants help is greatly appreciated. Patient denies any new complaints. Objective - Results Result Diagrams: 07/20/17 06:21 07/20/17 06:21 Recent Labs: Laboratory Last Values WBC 18.5 Th/cmm (4.8-10.8) H 07/20/17 06:21 RBC 3.57 Mil/cmm (3.80-5.10) L 07/20/17 06:21 Hgb 8.8 gm/dL (12-16) L 07/20/17 06:21 Hct 26.7 % (41.0-60) L 07/20/17 06:21 MCV 74.8 fl (81-100) L 07/20/17 06:21 MCH 24.7 pg (27.0-31.0) L 07/20/17 06:21 MCHC Differential 33.1 pg (28.0-36.0) 07/20/17 06:21 RDW 14.0 % (11.5-20.0) 07/20/17 06:21 Plt Count 423 Th/cmm (150-400) H 07/20/17 06:21 MPV 7.7 fl 07/20/17 06:21 Neutrophils % 83.1 % (40.0-80.0) H 07/20/17 06:21 Band Neutrophils % 1 % (0-10) 07/18/17 23:00 Lymphocytes % 10.4 % (20.0-50.0) L 07/20/17 06:21 Monocytes % 5.1 % (2.0-10.0) 07/20/17 06:21 Eosinophils % 1.4 % (0.0-5.0) 07/20/17 06:21 Basophils % 0.0 % (0.0-2.0) 07/20/17 06:21 Neutrophils (Manual) 80 % (40-80) 07/18/17 23:00 Lymphocytes 15 % (20-50) L 07/18/17 23:00 Monocytes 4 % (2-10) 07/18/17 23:00 Platelet Estimate INCREASED PLATELETS (NORMAL) 07/18/17 23:00 Microcytosis 1+ 07/18/17 23:00 PT 11.7 SECONDS (9.5-11.5) H 07/19/17 05:15 INR 1.12 (0.5-1.4) 07/19/17 05:15 Sodium 136 mEq/L (136-145) 07/20/17 06:21 Potassium 3.3 mEq/L (3.5-5.1) L 07/20/17 06:21 Chloride 107 mEq/L (98-107) 07/20/17 06:21 Carbon Dioxide 21.8 mEq/L (21.0-31.0) 07/20/17 06:21 Anion Gap 10.5 (7.0-16.0) 07/20/17 06:21 BUN 9 mg/dL (7-25) 07/20/17 06:21 Creatinine 0.4 mg/dL (0.6-1.2) L 07/20/17 06:21 Est GFR ( Amer) > 60.0 ml/min (>90) 07/20/17 06:21 Est GFR (Non-Af Amer) > 60.0 ml/min 07/20/17 06:21 BUN/Creatinine Ratio 22.5 07/20/17 06:21 Glucose 110 mg/dL (70-105) H 07/20/17 06:21 Whole Bld Lactic Acid 1.73 mmol/L (0.60-1.99) 07/18/17 23:00 Calcium 8.4 mg/dL (8.6-10.3) L 07/20/17 06:21 Magnesium 2.1 mg/dL (1.9-2.7) 07/19/17 05:15 Iron 10 ug/dL (27-159) L 07/18/17 23:00 TIBC 267 ug/dL (250-450) 07/18/17 23:00 Iron Saturation 4 % (15-55) L 07/18/17 23:00 Unsaturated IBC 257 ug/dL (131-425) 07/18/17 23:00 Total Bilirubin 0.2 mg/dL (0.3-1.0) L 07/20/17 06:21 AST 27 U/L (13-39) 07/20/17 06:21 ALT 21 U/L (7-52) 07/20/17 06:21 Alkaline Phosphatase 147 U/L (34-104) H 07/20/17 06:21 Total Protein 5.5 gm/dL (6.0-8.3) L 07/20/17 06:21 Albumin 2.5 gm/dL (3.7-5.3) L 07/20/17 06:21 Globulin 3.0 gm/dL 07/20/17 06:21 Albumin/Globulin Ratio 0.8 (1.0-1.8) L 07/20/17 06:21 Triglycerides 139 mg/dL (<150) 07/18/17 23:00 Cholesterol 100 mg/dL (<200) 07/18/17 23:00 LDL Cholesterol Direct 52 mg/dL (75-193) L 07/18/17 23:00 HDL Cholesterol 21 mg/dL (23-92) L 07/18/17 23:00 Free T4 1.63 ng/dL (0.82-1.77) 07/18/17 23:00 TSH 0.59 uIU/ml (0.34-5.60) 07/18/17 23:00 Beta HCG, Quant < 1 mIU/mL (0-0) H 07/19/17 12:52 Hepatitis A IgM Ab Negative (Negative) 07/19/17 09:05 Hep Bs Antigen Negative (Negative) 07/19/17 09:05 Hep B Core IgM Ab Negative (Negative) 07/19/17 09:05 Hepatitis C Antibody >11.0 s/co ratio (0.0-0.9) H 07/19/17 09:05 HIV 1&2 Antibody Screen NEGATIVE (NEG) 07/19/17 05:45 - Physical Exam Vitals and I&O: Vital Signs Temp 97.4 F 07/20/17 04:00 Pulse 97 07/20/17 04:00 Resp 17 07/20/17 04:00 BP 110/72 07/20/17 04:00 Pulse Ox 99 07/20/17 04:00 Intake & Output 07/19/17 07/20/17 07/20/17 18:59 06:59 18:59 Intake Total 100 600 290 Balance 100 600 290 Weight (lbs) 55.338 kg 59.058 kg 58.967 kg Intake: Intake, IV Amount 100 600 50 Clindamycin 600mg/50mL 50 50 50 600 mg In 50 ml @ 100 mls /hr IV Q8HR [facility] Rx#: [id number] Piperacillin Sodium/ 50 50 Tazobact 3.375 gm In Sodium Chloride 0.9% 50 ml @ 100 mls/hr IV Q6HR [facility] Rx#:[id number] Vancomycin HCl 1 gm In 500 Sodium Chloride 0.9% 250 ml @ 165 mls/hr IV Q12H [facility] Rx#:[id number] Oral 240 Other: # Voids 3 Active Medications: Current Medications Ferrous Sulfate (Iron) 325 mg PO BID [facility] Stop: 09/18/17 08:59 Clindamycin Phosphate (Cleocin Pb) 600 mg in 50 mls @ 100 mls/hr IV Q8HR [facility] Stop: 09/17/17 04:59 Last Infusion: 07/20/17 07:21 Dose: Infused Piperacillin Sod/Tazobactam (Sod 3.375 gm/ Sodium Chloride) 50 mls @ 100 mls/ hr IV Q6HR [facility] Stop: 09/17/17 05:59 Last Admin: 07/20/17 07:21 Dose: 100 mls/hr Potassium Chloride/Dextrose/Sod Cl (D5-0.9ns W/40 Meq Kcl) 1,000 mls @ 100 mls/ hr IV .Q10H [facility] Stop: 09/17/17 09:59 Last Admin: 07/19/17 12:21 Dose: 100 mls/hr Vancomycin HCl 1 gm/ Sodium (Chloride) 250 mls @ 165 mls/hr IV Q12H [facility] Stop: 09/17/17 15:59 Last Infusion: 07/20/17 04:49 Dose: Infused Miscellaneous (Vancomycin Iv Per Pharmacy) 1 ea [facility] PRN PRN PRN Reason: PROTOCOL Stop: 09/17/17 14:56 Morphine Sulfate (Morphine) 2 mg IVP Q4HR PRN PRN Reason: pain Stop: 09/17/17 09:31 Last Admin: 07/20/17 02:59 Dose: 2 mg Potassium Chloride (Klor-Con) 40 meq PO X1 [facility] Stop: 07/20/17 10:00 General: Alert, Oriented x3, Cooperative, No acute distress HEENT: Atraumatic, PERRLA, EOMI Neck: Supple, JVD Cardiovascular: Regular rate, Normal S1, Normal S2 Lungs: Clear to auscultation Abdomen: Bowel sounds Extremities: Other (right thigh intact dressings noted.) - Procedures Procedures: Procedures Procedure Code Date DPT ADMINISTRATION 99.39 08/05/14 DRAINAGE OF SKIN ABSCESS 09491 08/05/14 OTHER SKIN & SUBQ I D 86.04 08/05/14 Assessment/Plan - Assessment Assessment: Status post I&D of the right leg abscess. Leukocytosis improving. Polysubstance abuse. Microcytic hypochromic anemia. Hypokalemia. Rule out underlying depression. - Plan Plan: IV antibiotic. Wound care. Replacement potassium. Psychiatrist follow up. General nursing care. Monitor labs. Continue current treatment plan as ordered. Increase activity. Follow consultants recommendation. Care plan reviewed and discussed with staff.
--- NOTE | 2017-07-20 10:25 | General Progress Note ---
Subjective - Review of Systems Service Date: 07/20/17 Events since last encounter: continue local wound care patient best transferred to rehab Objective - Results Result Diagrams: 07/20/17 06:21 07/20/17 06:21 Recent Labs: Laboratory Last Values WBC 18.5 Th/cmm (4.8-10.8) H 07/20/17 06:21 RBC 3.57 Mil/cmm (3.80-5.10) L 07/20/17 06:21 Hgb 8.8 gm/dL (12-16) L 07/20/17 06:21 Hct 26.7 % (41.0-60) L 07/20/17 06:21 MCV 74.8 fl (81-100) L 07/20/17 06:21 MCH 24.7 pg (27.0-31.0) L 07/20/17 06:21 MCHC Differential 33.1 pg (28.0-36.0) 07/20/17 06:21 RDW 14.0 % (11.5-20.0) 07/20/17 06:21 Plt Count 423 Th/cmm (150-400) H 07/20/17 06:21 MPV 7.7 fl 07/20/17 06:21 Neutrophils % 83.1 % (40.0-80.0) H 07/20/17 06:21 Band Neutrophils % 1 % (0-10) 07/18/17 23:00 Lymphocytes % 10.4 % (20.0-50.0) L 07/20/17 06:21 Monocytes % 5.1 % (2.0-10.0) 07/20/17 06:21 Eosinophils % 1.4 % (0.0-5.0) 07/20/17 06:21 Basophils % 0.0 % (0.0-2.0) 07/20/17 06:21 Neutrophils (Manual) 80 % (40-80) 07/18/17 23:00 Lymphocytes 15 % (20-50) L 07/18/17 23:00 Monocytes 4 % (2-10) 07/18/17 23:00 Platelet Estimate INCREASED PLATELETS (NORMAL) 07/18/17 23:00 Microcytosis 1+ 07/18/17 23:00 PT 11.7 SECONDS (9.5-11.5) H 07/19/17 05:15 INR 1.12 (0.5-1.4) 07/19/17 05:15 Sodium 136 mEq/L (136-145) 07/20/17 06:21 Potassium 3.3 mEq/L (3.5-5.1) L 07/20/17 06:21 Chloride 107 mEq/L (98-107) 07/20/17 06:21 Carbon Dioxide 21.8 mEq/L (21.0-31.0) 07/20/17 06:21 Anion Gap 10.5 (7.0-16.0) 07/20/17 06:21 BUN 9 mg/dL (7-25) 07/20/17 06:21 Creatinine 0.4 mg/dL (0.6-1.2) L 07/20/17 06:21 Est GFR ( Amer) > 60.0 ml/min (>90) 07/20/17 06:21 Est GFR (Non-Af Amer) > 60.0 ml/min 07/20/17 06:21 BUN/Creatinine Ratio 22.5 07/20/17 06:21 Glucose 110 mg/dL (70-105) H 07/20/17 06:21 Whole Bld Lactic Acid 1.73 mmol/L (0.60-1.99) 07/18/17 23:00 Calcium 8.4 mg/dL (8.6-10.3) L 07/20/17 06:21 Magnesium 2.1 mg/dL (1.9-2.7) 07/19/17 05:15 Iron 10 ug/dL (27-159) L 07/18/17 23:00 TIBC 267 ug/dL (250-450) 07/18/17 23:00 Iron Saturation 4 % (15-55) L 07/18/17 23:00 Unsaturated IBC 257 ug/dL (131-425) 07/18/17 23:00 Total Bilirubin 0.2 mg/dL (0.3-1.0) L 07/20/17 06:21 AST 27 U/L (13-39) 07/20/17 06:21 ALT 21 U/L (7-52) 07/20/17 06:21 Alkaline Phosphatase 147 U/L (34-104) H 03/21/18 06:21 Total Protein 5.5 gm/dL (6.0-8.3) L 07/20/17 06:21 Albumin 2.5 gm/dL (3.7-5.3) L 07/20/17 06:21 Globulin 3.0 gm/dL 07/20/17 06:21 Albumin/Globulin Ratio 0.8 (1.0-1.8) L 07/20/17 06:21 Triglycerides 139 mg/dL (<150) 07/18/17 23:00 Cholesterol 100 mg/dL (<200) 07/18/17 23:00 LDL Cholesterol Direct 52 mg/dL (75-193) L 07/18/17 23:00 HDL Cholesterol 21 mg/dL (23-92) L 07/18/17 23:00 Free T4 1.63 ng/dL (0.82-1.77) 07/18/17 23:00 TSH 0.59 uIU/ml (0.34-5.60) 07/18/17 23:00 Beta HCG, Quant < 1 mIU/mL (0-0) H 07/19/17 12:52 Hepatitis A IgM Ab Negative (Negative) 07/19/17 09:05 Hep Bs Antigen Negative (Negative) 07/19/17 09:05 Hep B Core IgM Ab Negative (Negative) 07/19/17 09:05 Hepatitis C Antibody >11.0 s/co ratio (0.0-0.9) H 07/19/17 09:05 HIV 1&2 Antibody Screen NEGATIVE (NEG) 07/19/17 05:45 - Physical Exam Vitals and I&O: Vital Signs Temp 97.4 F 07/20/17 04:00 Pulse 97 07/20/17 04:00 Resp 17 07/20/17 04:00 BP 110/72 07/20/17 04:00 Pulse Ox 99 07/20/17 04:00 Intake & Output 07/19/17 07/20/17 07/20/17 18:59 06:59 18:59 Intake Total 100 600 290 Balance 100 600 290 Weight (lbs) 55.338 kg 59.058 kg 58.967 kg Intake: Intake, IV Amount 100 600 50 Clindamycin 600mg/50mL 50 50 50 600 mg In 50 ml @ 100 mls /hr IV Q8HR [facility] Rx#: [id number] Piperacillin Sodium/ 50 50 Tazobact 3.375 gm In Sodium Chloride 0.9% 50 ml @ 100 mls/hr IV Q6HR [facility] Rx#:[id number] Vancomycin HCl 1 gm In 500 Sodium Chloride 0.9% 250 ml @ 165 mls/hr IV Q12H [facility] Rx#:[id number] Oral 240 Other: # Voids 3 Active Medications: Current Medications Ferrous Sulfate (Iron) 325 mg PO BID [facility] Stop: 09/18/17 08:59 Clindamycin Phosphate (Cleocin Pb) 600 mg in 50 mls @ 100 mls/hr IV Q8HR [facility] Stop: 09/17/17 04:59 Last Infusion: 07/20/17 07:21 Dose: Infused Piperacillin Sod/Tazobactam (Sod 3.375 gm/ Sodium Chloride) 50 mls @ 100 mls/ hr IV Q6HR [facility] Stop: 09/17/17 05:59 Last Admin: 07/20/17 07:21 Dose: 100 mls/hr Potassium Chloride/Dextrose/Sod Cl (D5-0.9ns W/40 Meq Kcl) 1,000 mls @ 100 mls/ hr IV .Q10H [facility] Stop: 09/17/17 09:59 Last Admin: 07/19/17 12:21 Dose: 100 mls/hr Vancomycin HCl 1 gm/ Sodium (Chloride) 250 mls @ 165 mls/hr IV Q12H [facility] Stop: 09/17/17 15:59 Last Infusion: 07/20/17 04:49 Dose: Infused Miscellaneous (Vancomycin Iv Per Pharmacy) 1 ea [facility] PRN PRN PRN Reason: PROTOCOL Stop: 09/17/17 14:56 Morphine Sulfate (Morphine) 2 mg IVP Q4HR PRN PRN Reason: pain Stop: 09/17/17 09:31 Last Admin: 07/20/17 02:59 Dose: 2 mg Potassium Chloride (Klor-Con) 40 meq PO X1 [facility] Stop: 07/20/17 10:00 General: Alert, Oriented x3, Cooperative, No acute distress HEENT: Atraumatic, PERRLA, EOMI Neck: Supple, JVD Cardiovascular: Regular rate, Normal S1, Normal S2 Lungs: Clear to auscultation Abdomen: Bowel sounds Extremities: Other (right thigh intact dressings noted.) - Procedures Procedures: Procedures Procedure Code Date DPT ADMINISTRATION 99.39 04/06/15 DRAINAGE OF SKIN ABSCESS 20322 08/05/14 OTHER SKIN & SUBQ I D 86.04 08/05/14
[2017-07-20] MEDS: Ferrous Sulfate 325 MG TAB PO SCH ×2 (11:25→17:37)
--- NOTE | 2017-07-20 16:11 | Infectious Disease Prog Note ---
Infectious Disease Subjective - Review of Systems Service Date: 07/20/17 Subjective: No fever. Infectious Disease Objective - Results Result Diagrams: 07/20/17 06:21 07/20/17 06:21 Recent Labs: Laboratory Last Values WBC 18.5 Th/cmm (4.8-10.8) H 07/20/17 06:21 RBC 3.57 Mil/cmm (3.80-5.10) L 07/20/17 06:21 Hgb 8.8 gm/dL (12-16) L 07/20/17 06:21 Hct 26.7 % (41.0-60) L 07/20/17 06:21 MCV 74.8 fl (81-100) L 07/20/17 06:21 MCH 24.7 pg (27.0-31.0) L 07/20/17 06:21 MCHC Differential 33.1 pg (28.0-36.0) 07/20/17 06:21 RDW 14.0 % (11.5-20.0) 07/20/17 06:21 Plt Count 423 Th/cmm (150-400) H 07/20/17 06:21 MPV 7.7 fl 07/20/17 06:21 Neutrophils % 83.1 % (40.0-80.0) H 07/20/17 06:21 Band Neutrophils % 1 % (0-10) 07/18/17 23:00 Lymphocytes % 10.4 % (20.0-50.0) L 07/20/17 06:21 Monocytes % 5.1 % (2.0-10.0) 07/20/17 06:21 Eosinophils % 1.4 % (0.0-5.0) 07/20/17 06:21 Basophils % 0.0 % (0.0-2.0) 07/20/17 06:21 Neutrophils (Manual) 80 % (40-80) 07/18/17 23:00 Lymphocytes 15 % (20-50) L 07/18/17 23:00 Monocytes 4 % (2-10) 07/18/17 23:00 Platelet Estimate INCREASED PLATELETS (NORMAL) 07/18/17 23:00 Microcytosis 1+ 07/18/17 23:00 PT 11.7 SECONDS (9.5-11.5) H 07/19/17 05:15 INR 1.12 (0.5-1.4) 07/19/17 05:15 Sodium 136 mEq/L (136-145) 07/20/17 06:21 Potassium 3.3 mEq/L (3.5-5.1) L 07/20/17 06:21 Chloride 107 mEq/L (98-107) 07/20/17 06:21 Carbon Dioxide 21.8 mEq/L (21.0-31.0) 07/20/17 06:21 Anion Gap 10.5 (7.0-16.0) 07/20/17 06:21 BUN 9 mg/dL (7-25) 07/20/17 06:21 Creatinine 0.4 mg/dL (0.6-1.2) L 07/20/17 06:21 Est GFR ( Amer) > 60.0 ml/min (>90) 07/20/17 06:21 Est GFR (Non-Af Amer) > 60.0 ml/min 07/20/17 06:21 BUN/Creatinine Ratio 22.5 07/20/17 06:21 Glucose 110 mg/dL (70-105) H 07/20/17 06:21 Whole Bld Lactic Acid 1.73 mmol/L (0.60-1.99) 07/18/17 23:00 Calcium 8.4 mg/dL (8.6-10.3) L 07/20/17 06:21 Magnesium 2.1 mg/dL (1.9-2.7) 07/19/17 05:15 Iron 10 ug/dL (27-159) L 07/18/17 23:00 TIBC 267 ug/dL (250-450) 07/18/17 23:00 Iron Saturation 4 % (15-55) L 07/18/17 23:00 Unsaturated IBC 257 ug/dL (131-425) 07/18/17 23:00 Ferritin 236 ng/mL (15-150) H 07/18/17 23:00 Total Bilirubin 0.2 mg/dL (0.3-1.0) L 07/20/17 06:21 AST 27 U/L (13-39) 07/20/17 06:21 ALT 21 U/L (7-52) 07/20/17 06:21 Alkaline Phosphatase 147 U/L (34-104) H 07/20/17 06:21 Total Protein 5.5 gm/dL (6.0-8.3) L 07/20/17 06:21 Albumin 2.5 gm/dL (3.7-5.3) L 07/20/17 06:21 Globulin 3.0 gm/dL 07/20/17 06:21 Albumin/Globulin Ratio 0.8 (1.0-1.8) L 07/20/17 06:21 Triglycerides 139 mg/dL (<150) 07/18/17 23:00 Cholesterol 100 mg/dL (<200) 07/18/17 23:00 LDL Cholesterol Direct 52 mg/dL (75-193) L 07/18/17 23:00 HDL Cholesterol 21 mg/dL (23-92) L 07/18/17 23:00 Free T4 1.63 ng/dL (0.82-1.77) 07/18/17 23:00 TSH 0.59 uIU/ml (0.34-5.60) 07/18/17 23:00 Beta HCG, Quant < 1 mIU/mL (0-0) H 07/19/17 12:52 Hepatitis A IgM Ab Negative (Negative) 07/19/17 09:05 Hep Bs Antigen Negative (Negative) 07/19/17 09:05 Hep B Core IgM Ab Negative (Negative) 07/19/17 09:05 Hepatitis C Antibody >11.0 s/co ratio (0.0-0.9) H 07/19/17 09:05 HIV 1&2 Antibody Screen NEGATIVE (NEG) 07/19/17 05:45 - Physical Exam Vitals and I&O: Vital Signs Temp 97.7 F 07/20/17 12:00 Pulse 85 07/20/17 12:00 Resp 18 07/20/17 12:00 BP 121/73 07/20/17 12:00 Pulse Ox 100 07/20/17 12:00 Intake & Output 07/19/17 07/20/17 07/20/17 18:59 06:59 18:59 Intake Total 100 600 340 Balance 100 600 340 Weight (lbs) 55.338 kg 59.058 kg 58.967 kg Intake: Intake, IV Amount 100 600 100 Clindamycin 600mg/50mL 50 50 50 600 mg In 50 ml @ 100 mls /hr IV Q8HR [facility] Rx#: [id number] Piperacillin Sodium/ 50 50 50 Tazobact 3.375 gm In Sodium Chloride 0.9% 50 ml @ 100 mls/hr IV Q6HR [facility] Rx#:[id number] Vancomycin HCl 1 gm In 500 Sodium Chloride 0.9% 250 ml @ 165 mls/hr IV Q12H [facility] Rx#:[id number] Oral 240 Other: # Voids 3 Active Medications: Current Medications Ferrous Sulfate (Iron) 325 mg PO BID [facility] Stop: 09/18/17 08:59 Last Admin: 07/20/17 11:25 Dose: 325 mg Clindamycin Phosphate (Cleocin Pb) 600 mg in 50 mls @ 100 mls/hr IV Q8HR [facility] Stop: 09/17/17 04:59 Last Admin: 07/20/17 12:38 Dose: 100 mls/hr Piperacillin Sod/Tazobactam (Sod 3.375 gm/ Sodium Chloride) 50 mls @ 100 mls/ hr IV Q6HR [facility] Stop: 09/17/17 05:59 Last Admin: 07/20/17 12:40 Dose: 100 mls/hr Potassium Chloride/Dextrose/Sod Cl (D5-0.9ns W/40 Meq Kcl) 1,000 mls @ 100 mls/ hr IV .Q10H [facility] Stop: 09/17/17 09:59 Last Admin: 07/19/17 12:21 Dose: 100 mls/hr Vancomycin HCl 1 gm/ Sodium (Chloride) 250 mls @ 165 mls/hr IV Q12H [facility] Stop: 09/17/17 15:59 Last Infusion: 07/20/17 04:49 Dose: Infused Miscellaneous (Vancomycin Iv Per Pharmacy) 1 ea MC PRN PRN PRN Reason: PROTOCOL Stop: 09/17/17 14:56 Morphine Sulfate (Morphine) 2 mg IVP Q4HR PRN PRN Reason: pain Stop: 09/17/17 09:31 Last Admin: 07/20/17 02:59 Dose: 2 mg General: no acute distress, well developed, well nourished HEENT: atraumatic, normocephalic, PERRLA, EOMI Neck: supple, no thyromegaly Cardiovascular: S1S2, regular Lungs: no clear to auscultation bilaterally, no clear to percussion Abdomen: soft, no tender, no distended Extremities: other (Right leg ), no cyanosis, no clubbing Neurological: awake, alert, oriented - Procedures Procedures: Procedures Procedure Code Date ROSSANA SUBQ TISSUE 20 SQ CM/< 88239 07/18/17 DPT ADMINISTRATION 99.39 08/05/14 DRAINAGE OF SKIN ABSCESS 06001 08/05/14 EXCISION OF L UP LEG SUBCU/FASCIA, OPEN APPROACH [id number] 07/18/17 EXCISION OF R LOW LEG SUBCU/FASCIA, OPEN APPROACH [id number] 07/18/17 OTHER SKIN & SUBQ I D 86.04 08/05/14 Infectious Disease Assmt/Plan - Assessment Assessment: 1. Sepsis on presentation. 2. Abscess right leg.Cellulitis of the right leg. I strongly suspect myositis of the right leg. 3. Left leg ulcer. 4. h/o IVDA. - Plan Plan: Continue vanco IV and zosyn. Wound care, urine for drug screen. Tele monitoring. Nutritional Asmnt/Malnutr-PDOC - Dietary Evaluation Malnutrition Findings (Please click <Entered> for more info): Nutritional Asmnt/Malnutrition Start: 07/20/17 15: 22 Text: Status: Complete Freq: Document 07/20/17 15:22 FAREED (Rec: 07/20/17 15:[email or web address] Nutritional Asmnt/Malnutrition Patient General Information Nutritional Screening High Risk Consult Diagnosis cellulitis Pertinent Medical Hx/Surgical Hx heroin addiction Subjective Information Consult received for multiple wounds. Pt seen lying in bed, awake and alert. Pt reported appetite normal as usual, no wt change noted. Pt dislike milk. Pt had debridement on . Per RN, pt had many food from outside. Current Diet [facility]/ [facility] Pertinent Medications Iron, piperacillin, D5-0.9ns w 40 meq kcl, vancomycin Pertinent Labs 07/20 Na 136, K 3.3, Cl 107, Cr 0.4, Glucose 110, Ca 8.4 Nutritional Hx/Data Height 1.63 m Height (Calculated Centimeters) 162.6 Current Weight (lbs) 58.967 kg Weight (Calculated Kilograms) 59.0 Weight (Calculated Grams) 39152.0 [place] Body Weight 120 Body Mass Index (BMI) 22.3 Weight Status Overweight GI Symptoms GI Symptoms None Last BM no record Difficult in: None Skin Integrity/Comment: reddened to right hip, left lower leg, ulceration to right lower leg. Current %PO Good (75-100%) Estimated Nutritional Goals BEE in Kcals: Using Current wt Calories/Kcals/Kg 25-30 Kcals Calculated 3177-4049 Protein: Using Current wt Protein g/k-1.2 Protein Calculated 59-71 Fluid: ml 1475-1770ml (1ml/kcal) Nutritional Problem 1. Problem Problem increased nutrition needs ( protein) Etiology increased metabolic demand for wound healing Signs/Symptoms: ulceration to right lower leg Malnutrition Alert Protein-Calorie Malnutrition N/A Is there a minimum of two criteria No selected? Query Text:Check all the applicable criteria. A minimum of two criteria are recommended for diagnosis of either severe or non-severe malnutrition. Intervention/Recommendation Comments 1. Recommend regular diet considering no hx of DM. 2. Monitor PO intake, wt, labs and skin integrity 3. F/U as moderate risk in 3-5 days, 07/23-07/25 Expected Outcomes/Goals Expected Outcomes/Goals 1. PO intake to meet at least 75% of nutritional needs. 2. Wt stability, wound to heal , labs to approach WNL.
[2017-07-20 22:57] LABS: AMPHETAMINE URINE POSITIVE (NEGATIVE); METHAMPHETAMINES QUAL URINE POSITIVE (NEGATIVE); OPIATES (MORPHINE) QUAL. URINE POSITIVE (NEGATIVE)
[2017-07-20 22:58] LABS: BARBITURATES URINE NEGATIVE (NEGATIVE); BENZODIAZEPINES QUAL URINE POSITIVE (NEGATIVE); CANNABINOID THC NEGATIVE (NEGATIVE); COCAINE METABOLITE QUAL URINE NEGATIVE (NEGATIVE); METHADONE URINE NEGATIVE (NEGATIVE); PHENCYCLIDINE (PCP) URINE NEGATIVE (NEGATIVE); TRICYCLICS (TCA) QUAL. URINE NEGATIVE (NEGATIVE)
[2017-07-21] MEDS: Clindamycin 600mg/50mL 600 MG/50 ML BAG IV SCH ×3 (04:12→21:54)
--- NOTE | 2017-07-21 04:40 | Consultation ---
DATE OF CONSULTATION: 07/20/[address] Barreto. HISTORY AND PHYSICAL: This is a 27-year-old female patient who has a known history of polysubstance abuse. The patient came with abscess in the right calf muscle. The patient had incision and drainage. At the present time, cardiac consult is requested for possible subendocarditis. PAST MEDICAL HISTORY: The patient has a history of polysubstance abuse, left leg ulcer, anemia. FAMILY HISTORY: Unremarkable. SOCIAL HISTORY: The patient has a history of polysubstance abuse. ALLERGIES: None. PHYSICAL EXAMINATION: VITAL SIGNS: Blood pressure 120/80, pulse 70, respirations 20. HEAD: Normocephalic. No lumps or bumps. EYES: Pupils equal, reactive to light. Fundi show AV nicking, sclerae white, conjunctivae pink. NECK: Carotid 2+. Normal upstroke. JVD flat. Thyroid not palpable. Lymph nodes not palpable. CHEST: Shows increased AP diameter. No kyphosis, scoliosis. LUNGS: Bilateral bronchovesicular breath sounds. HEART: PMI fifth intercostal space with lateral to midclavicular line. S1, S2. No S3, soft S4. Systolic murmur, grade 2/6, lower left sternal border without radiation. ABDOMEN: Soft. Liver, spleen not palpable. No organomegaly. Bowel sounds active. NEUROLOGIC: No focal neurological deficit. EXTREMITIES: The patient has abscess in the right calf muscle. Ulcer in the left lower leg. CLINICAL IMPRESSION: Abscess, right calf muscle with cellulitis, left leg ulcer, hypokalemia, iron-deficiency anemia, polysubstance abuse. PLAN: We will get echocardiogram to rule out endocarditis. Continue IV antibiotics and incision and drainage calf abscess. JOB# [id number]
[2017-07-21] MEDS: D5-0.9NS w/40 mEq KCL 1,000 ML IV SCH (06:25)
[2017-07-21 07:17] LABS: % BASOPHILS 0.6 % (0.0-2.0); % EOSINOPHILS 3.6 % (0.0-5.0); % LYMPHOCYTES 21.3 % (20.0-50.0); % MONOCYTES 7.6 % (2.0-10.0); % NEUTROPHILS 66.9 % (40.0-80.0); BASOPHILE ABSOLUTE 0.1 Th/cumm (0-0.2); EOSINOPHILE ABSOLUTE 0.5 Th/cmm (0.1-0.4); HEMATOCRIT 26.7 % (41.0-60); HEMOGLOBIN 8.7 gm/dL (12-16); LYMPHOCYTE ABSOLUTE 2.8 Th/cmm (1.5-3.0); MEAN CELL VOLUME 75.2 fl (81-100); MEAN CORPUSCULAR HEMOGLOBIN 24.4 pg (27.0-31.0); MEAN CORPUSCULAR HGB CONC 32.4 pg (28.0-36.0); MEAN PLATELET VOLUME 6.9 fl; NEUTROPHILE ABSOLUTE 8.9 Th/cmm (1.8-8.0); PLATELET COUNT 515 Th/cmm (150-400); RED BLOOD COUNT 3.55 Mil/cmm (3.80-5.10); RED CELL DISTRIBUTION WIDTH 14.3 % (11.5-20.0)
[2017-07-21 07:22] LABS: WHITE BLOOD COUNT 13.3 Th/cmm (4.8-10.8)
[2017-07-21 07:45] LABS: ALB/GLOB RATIO 0.8 (1.0-1.8); ALBUMIN 2.3 gm/dL (3.7-5.3); ALKALINE PHOSPHATASE 111 U/L (34-104); ANION GAP 9.1 (7.0-16.0); BILIRUBIN,TOTAL 0.2 mg/dL (0.3-1.0); BUN - UREA NITROGEN 8 mg/dL (7-25); CALCIUM SERUM 8.2 mg/dL (8.6-10.3); CARBON DIOXIDE 22.8 mEq/L (21.0-31.0); CHLORIDE 108 mEq/L (98-107); CREATININE - SERUM 0.6 mg/dL (0.6-1.2); GFR AFRICAN-AMERICAN > 60.0 ml/min (>90); GFR NON AFRICAN-AMERICAN > 60.0 ml/min; GLUCOSE 142 mg/dL (70-105); POTASSIUM SERUM 3.9 mEq/L (3.5-5.1); SGOT 12 U/L (13-39); SGPT/ALT 15 U/L (7-52); SODIUM SERUM 136 mEq/L (136-145); TOTAL PROTEIN,SERUM 5.3 gm/dL (6.0-8.3)
[2017-07-21] MEDS: Ferrous Sulfate 325 MG TAB PO SCH ×2 (08:36→17:48)
--- NOTE | 2017-07-21 09:38 | Progress Notes ---
DATE: Chart reviewed and the patient interviewed. Also discussed the patient's condition with the staff and reviewed records and labs. The patient is still in irritable and angry mood. The patient also is complaining of "weak." She also is still interacting minimally with others. She has continued to be in treatment for her abscess in lower extremities. Otherwise, the patient denies any craving to use. ASSESSMENT: The patient is still anxious and high risk relapse. TREATMENT PLAN: Continue to monitor her behavior closely. Also, we will continue on her addiction and we will continue to follow up closely. JOB# [id number]
--- NOTE | 2017-07-21 11:21 | Progress Notes ---
DATE: 07/21/2017 SUBJECTIVE: The patient seen and examined. The patient has seen psychiatrist. According to today's note, the patient is still in high risk for relapse, recommended to monitor behavior closely and follow up closely. The patient remained afebrile and Infectious Disease recommended a midline catheter for antibiotics. She does have a history of IV street drug use. PHYSICAL EXAMINATION: VITAL SIGNS: On today's exam, temperature 98, pulse is 85, respiratory rate 20, blood pressure 108/74. HEENT: No facial asymmetry. NECK: Supple. No JVD. HEART: Regular. No murmur. CHEST: Equal in expansion. No wheezing, no crackles. ABDOMEN: Soft. No guarding or rigidity. EXTREMITIES: No edema, intact dressings on the right leg noted. AVAILABLE DIAGNOSTIC DATA: White count of 13.3, hemoglobin 8.7, platelet count of 515. BUN and creatinine is 8 and 0.6. The patient's urine drug screen was done on 07/20/2017, positive for opiates, methamphetamine and benzos. Blood cultures so far negative. Wound cultures, aerobic cultures remarkable for many group A beta strep. CLINICAL IMPRESSION: 1. Abscess and cellulitis, right leg, status post debridement. 2. History of intravenous drug abuse. 3. Microcytic hypochromic anemia. 4. Psychotic disorder. PLAN: The patient does meet criteria for acute care at this time. Continue to provide IV antibiotic, symptoms management, general nursing care, nutritional support, psych followup as well as followup on consult and recommendations. JOB# [id number]
[2017-07-21] MEDS ORDERED: Probiotic Screen MC PRN (12:15)
[2017-07-21] MEDS: Morphine Sulfate 4 mg/mL 1mL Syr IVP PRN (13:51)
--- NOTE | 2017-07-21 16:28 | Infectious Disease Prog Note ---
Infectious Disease Subjective - Review of Systems Service Date: 07/21/17 Subjective: No fever. Infectious Disease Objective - Results Result Diagrams: 07/21/17 07:00 07/21/17 07:00 Recent Labs: Laboratory Last Values WBC 13.3 Th/cmm (4.8-10.8) H 07/21/17 07:00 RBC 3.55 Mil/cmm (3.80-5.10) L 07/21/17 07:00 Hgb 8.7 gm/dL (12-16) L 07/21/17 07:00 Hct 26.7 % (41.0-60) L 07/21/17 07:00 MCV 75.2 fl (81-100) L 07/21/17 07:00 MCH 24.4 pg (27.0-31.0) L 07/21/17 07:00 MCHC Differential 32.4 pg (28.0-36.0) 07/21/17 07:00 RDW 14.3 % (11.5-20.0) 07/21/17 07:00 Plt Count 515 Th/cmm (150-400) H 07/21/17 07:00 MPV 6.9 fl 07/21/17 07:00 Neutrophils % 66.9 % (40.0-80.0) 07/21/17 07:00 Band Neutrophils % 1 % (0-10) 07/18/17 23:00 Lymphocytes % 21.3 % (20.0-50.0) 07/21/17 07:00 Monocytes % 7.6 % (2.0-10.0) 07/21/17 07:00 Eosinophils % 3.6 % (0.0-5.0) 07/21/17 07:00 Basophils % 0.6 % (0.0-2.0) 07/21/17 07:00 Neutrophils (Manual) 80 % (40-80) 07/18/17 23:00 Lymphocytes 15 % (20-50) L 07/18/17 23:00 Monocytes 4 % (2-10) 07/18/17 23:00 Platelet Estimate INCREASED PLATELETS (NORMAL) 07/18/17 23:00 Microcytosis 1+ 07/18/17 23:00 PT 11.7 SECONDS (9.5-11.5) H 07/19/17 05:15 INR 1.12 (0.5-1.4) 07/19/17 05:15 Sodium 136 mEq/L (136-145) 07/21/17 07:00 Potassium 3.9 mEq/L (3.5-5.1) 07/21/17 07:00 Chloride 108 mEq/L (98-107) H 07/21/17 07:00 Carbon Dioxide 22.8 mEq/L (21.0-31.0) 07/21/17 07:00 Anion Gap 9.1 (7.0-16.0) 07/21/17 07:00 BUN 8 mg/dL (7-25) 07/21/17 07:00 Creatinine 0.6 mg/dL (0.6-1.2) 07/21/17 07:00 Est GFR ( Amer) > 60.0 ml/min (>90) 07/21/17 07:00 Est GFR (Non-Af Amer) > 60.0 ml/min 07/21/17 07:00 BUN/Creatinine Ratio 13.3 07/21/17 07:00 Glucose 142 mg/dL (70-105) H 07/21/17 07:00 Whole Bld Lactic Acid 1.73 mmol/L (0.60-1.99) 07/18/17 23:00 Calcium 8.2 mg/dL (8.6-10.3) L 07/21/17 07:00 Magnesium 2.1 mg/dL (1.9-2.7) 07/19/17 05:15 Iron 10 ug/dL (27-159) L 07/18/17 23:00 TIBC 267 ug/dL (250-450) 07/18/17 23:00 Iron Saturation 4 % (15-55) L 07/18/17 23:00 Unsaturated IBC 257 ug/dL (131-425) 07/18/17 23:00 Ferritin 236 ng/mL (15-150) H 07/18/17 23:00 Total Bilirubin 0.2 mg/dL (0.3-1.0) L 07/21/17 07:00 AST 12 U/L (13-39) L 07/21/17 07:00 ALT 15 U/L (7-52) 07/21/17 07:00 Alkaline Phosphatase 111 U/L (34-104) H 07/21/17 07:00 Total Protein 5.3 gm/dL (6.0-8.3) L 07/21/17 07:00 Albumin 2.3 gm/dL (3.7-5.3) L 07/21/17 07:00 Globulin 3.0 gm/dL 07/21/17 07:00 Albumin/Globulin Ratio 0.8 (1.0-1.8) L 07/21/17 07:00 Triglycerides 139 mg/dL (<150) 07/18/17 23:00 Cholesterol 100 mg/dL (<200) 07/18/17 23:00 LDL Cholesterol Direct 52 mg/dL (75-193) L 07/18/17 23:00 HDL Cholesterol 21 mg/dL (23-92) L 07/18/17 23:00 Free T4 1.63 ng/dL (0.82-1.77) 07/18/17 23:00 TSH 0.59 uIU/ml (0.34-5.60) 07/18/17 23:00 Beta HCG, Quant < 1 mIU/mL (0-0) H 07/19/17 12:52 Vancomycin Trough 19.8 ug/mL (10-20) 07/21/17 07:00 Urine Opiates Screen POSITIVE (NEGATIVE) H 07/20/17 22:15 Urine Methadone Screen NEGATIVE (NEGATIVE) 07/20/17 22:15 Ur Barbiturates Screen NEGATIVE (NEGATIVE) 07/20/17 22:15 Ur Tricyclics Screen NEGATIVE (NEGATIVE) 07/20/17 22:15 Ur Phencyclidine Scrn NEGATIVE (NEGATIVE) 07/20/17 22:15 Amphetamines Screen POSITIVE (NEGATIVE) H 07/20/17 22:15 U Methamphetamines Scrn POSITIVE (NEGATIVE) H 07/20/17 22:15 U Benzodiazepines Scrn POSITIVE (NEGATIVE) H 07/20/17 22:15 U Cocaine Metab Screen NEGATIVE (NEGATIVE) 07/20/17 22:15 U Cannabinoids Screen NEGATIVE (NEGATIVE) 07/20/17 22:15 Hepatitis A IgM Ab Negative (Negative) 07/19/17 09:05 Hep Bs Antigen Negative (Negative) 07/19/17 09:05 Hep B Core IgM Ab Negative (Negative) 07/19/17 09:05 Hepatitis C Antibody >11.0 s/co ratio (0.0-0.9) H 07/19/17 09:05 HIV 1&2 Antibody Screen NEGATIVE (NEG) 07/19/17 05:45 - Physical Exam Vitals and I&O: Vital Signs Temp 98.0 F 07/21/17 08:00 Pulse 85 07/21/17 08:00 Resp 20 07/21/17 08:00 BP 108/74 07/21/17 08:00 Pulse Ox 100 07/21/17 08:00 Intake & Output 07/20/17 07/21/17 07/21/17 18:59 06:59 18:59 Intake Total 440 500 Balance 440 500 Weight (lbs) 58.967 kg 59.194 kg Intake: Intake, IV Amount 200 500 Clindamycin 600mg/50mL 100 100 600 mg In 50 ml @ 100 mls /hr IV Q8HR [facility] Rx#: [id number] Piperacillin Sodium/ 100 150 Tazobact 3.375 gm In Sodium Chloride 0.9% 50 ml @ 100 mls/hr IV Q6HR [facility] Rx#:[id number] Vancomycin HCl 1 gm In 250 Sodium Chloride 0.9% 250 ml @ 165 mls/hr IV Q8H [facility] Rx#:[id number] Oral 240 Other: # Voids 3 Active Medications: Current Medications Ferrous Sulfate (Iron) 325 mg PO BID [facility] Stop: 09/18/17 08:59 Last Admin: 07/21/17 08:36 Dose: 325 mg Clindamycin Phosphate (Cleocin Pb) 600 mg in 50 mls @ 100 mls/hr IV Q8HR [facility] Stop: 09/17/17 04:59 Last Admin: 07/21/17 13:31 Dose: 100 mls/hr Piperacillin Sod/Tazobactam (Sod 3.375 gm/ Sodium Chloride) 50 mls @ 100 mls/ hr IV Q6HR [facility] Stop: 09/17/17 05:59 Last Admin: 07/21/17 11:43 Dose: 100 mls/hr Potassium Chloride/Dextrose/Sod Cl (D5-0.9ns W/40 Meq Kcl) 1,000 mls @ 100 mls/ hr IV .Q10H [facility] Stop: 09/17/17 09:59 Last Admin: 07/21/17 06:25 Dose: 100 mls/hr Vancomycin HCl 1 gm/ Sodium (Chloride) 250 mls @ 165 mls/hr IV Q8H [facility] Stop: 09/19/17 00:00 Last Admin: 07/21/17 08:35 Dose: 165 mls/hr Lactobacillus Rhamnosus (Culturelle 15b) 1 each PO DAILY [facility] Stop: 09/20/17 08:59 Lorazepam (Ativan) 1 mg PO Q6HR PRN; Protocol PRN Reason: anxiety Stop: 09/19/17 10:55 Miscellaneous (Vancomycin Iv Per Pharmacy) 1 ea PRN PRN PRN Reason: PROTOCOL Stop: 09/17/17 14:56 Miscellaneous (Probiotic Screen) 1 ea PRN PRN PRN Reason: PROTOCOL Stop: 09/19/17 12:14 Morphine Sulfate (Morphine) 2 mg IVP Q4HR PRN PRN Reason: pain Stop: 09/17/17 09:31 Last Admin: 07/21/17 13:51 Dose: 2 mg General: no acute distress, well developed, well nourished HEENT: atraumatic, normocephalic, PERRLA, EOMI Neck: supple, no thyromegaly Cardiovascular: S1S2, regular Lungs: clear to auscultation bilaterally, clear to percussion Abdomen: soft, no tender, no distended Extremities: other (swelling and firmness of the right leg, the wound is packed , there is some necrotic tissue underneath.), no cyanosis, no clubbing Neurological: awake, alert, oriented - Procedures Procedures: Procedures Procedure Code Date ROSSANA SUBQ TISSUE 20 SQ CM/< 62892 07/18/17 DPT ADMINISTRATION 99.39 08/05/14 DRAINAGE OF SKIN ABSCESS 63378 08/05/14 EXCISION OF L UP LEG SUBCU/FASCIA, OPEN APPROACH [id number] 07/18/17 EXCISION OF R LOW LEG SUBCU/FASCIA, OPEN APPROACH [id number] 07/18/17 OTHER SKIN & SUBQ I D 86.04 08/05/14 Infectious Disease Assmt/Plan - Assessment Assessment: 1. Sepsis on presentation. 2. Abscess right leg.Cellulitis of the right leg. I strongly suspect myositis of the right leg. 3. Left leg ulcer. 4. h/o IVDA. - Plan Plan: Continue vanco IV and zosyn. Wound care. Tele monitoring. CT of the right leg without contrast to r/o underlying abscess and extent of myositis. Nutritional Asmnt/Malnutr-PDOC - Dietary Evaluation Malnutrition Findings (Please click <Entered> for more info): Nutritional Asmnt/Malnutrition Start: 07/20/17 15: 22 Text: Status: Complete Freq: Document 07/20/17 15:22 [email or web address] (Rec: 07/20/17 15:35 HENG [email or web address]) Nutritional Asmnt/Malnutrition Patient General Information Nutritional Screening High Risk Consult Diagnosis cellulitis Pertinent Medical Hx/Surgical Hx heroin addiction Subjective Information Consult received for multiple wounds. Pt seen lying in bed, awake and alert. Pt reported appetite normal as usual, no wt change noted. Pt dislike milk. Pt had debridement on . Per RN, pt had many food from outside. Current Diet Order/ [facility] Pertinent Medications Iron, piperacillin, D5-0.9ns w 40 meq kcl, vancomycin Pertinent Labs 07/20 Na 136, K 3.3, Cl 107, Cr 0.4, Glucose 110, Ca 8.4 Nutritional Hx/Data Height 1.63 m Height (Calculated Centimeters) 162.6 Current Weight (lbs) 58.967 kg Weight (Calculated Kilograms) 59.0 Weight (Calculated Grams) 74472.0 [place] Body Weight 120 Body Mass Index (BMI) 22.3 Weight Status Overweight GI Symptoms GI Symptoms None Last BM no record Difficult in: None Skin Integrity/Comment: reddened to right hip, left lower leg, ulceration to right lower leg. Current %PO Good (75-100%) Estimated Nutritional Goals BEE in Kcals: Using Current wt Calories/Kcals/Kg 25-30 Kcals Calculated 2979-4064 Protein: Using Current wt Protein g/k-1.2 Protein Calculated 59-71 Fluid: ml 1475-1770ml (1ml/kcal) Nutritional Problem 1. Problem Problem increased nutrition needs ( protein) Etiology increased metabolic demand for wound healing Signs/Symptoms: ulceration to right lower leg Malnutrition Alert Protein-Calorie Malnutrition N/A Is there a minimum of two criteria No selected? Query Text:Check all the applicable criteria. A minimum of two criteria are recommended for diagnosis of either severe or non-severe malnutrition. Intervention/Recommendation Comments 1. Recommend regular diet considering no hx of DM. 2. Monitor PO intake, wt, labs and skin integrity 3. F/U as moderate risk in 3-5 days, 07/23-07/25 Expected Outcomes/Goals Expected Outcomes/Goals 1. PO intake to meet at least 75% of nutritional needs. 2. Wt stability, wound to heal , labs to approach WNL.
[2017-07-22] MEDS: Morphine Sulfate 4 mg/mL 1mL Syr IVP PRN ×2 (00:32→16:05)
[2017-07-22] MEDS: Clindamycin 600mg/50mL 600 MG/50 ML BAG IV SCH (04:57)
[2017-07-22 05:30] LABS: % EOSINOPHILS 0.5 % (0.0-5.0); % LYMPHOCYTES 6.4 % (20.0-50.0); % MONOCYTES 3.2 % (2.0-10.0); % NEUTROPHILS 89.9 % (40.0-80.0); EOSINOPHILE ABSOLUTE 0.1 Th/cmm (0.1-0.4); HEMOGLOBIN 9.4 gm/dL (12-16); LYMPHOCYTE ABSOLUTE 0.9 Th/cmm (1.5-3.0); MEAN CELL VOLUME 74.5 fl (81-100); MEAN CORPUSCULAR HEMOGLOBIN 24.1 pg (27.0-31.0); MEAN CORPUSCULAR HGB CONC 32.3 pg (28.0-36.0); MEAN PLATELET VOLUME 6.7 fl; MONOCYTE ABSOLUTE 0.4 Th/cmm (0.3-1.0); NEUTROPHILE ABSOLUTE 12.3 Th/cmm (1.8-8.0); PLATELET COUNT 545 Th/cmm (150-400); RED CELL DISTRIBUTION WIDTH 13.9 % (11.5-20.0)
[2017-07-22 05:44] LABS: WHITE BLOOD COUNT 13.7 Th/cmm (4.8-10.8)
[2017-07-22 06:02] LABS: ALB/GLOB RATIO 0.8 (1.0-1.8); ALBUMIN 2.6 gm/dL (3.7-5.3); ALKALINE PHOSPHATASE 108 U/L (34-104); ANION GAP 10.9 (7.0-16.0); BILIRUBIN,TOTAL 0.2 mg/dL (0.3-1.0); BUN - UREA NITROGEN 9 mg/dL (7-25); CALCIUM SERUM 8.5 mg/dL (8.6-10.3); CARBON DIOXIDE 23.7 mEq/L (21.0-31.0); CHLORIDE 103 mEq/L (98-107); CREATININE - SERUM 0.7 mg/dL (0.6-1.2); GFR AFRICAN-AMERICAN > 60.0 ml/min (>90); GFR NON AFRICAN-AMERICAN > 60.0 ml/min; GLUCOSE 129 mg/dL (70-105); POTASSIUM SERUM 3.6 mEq/L (3.5-5.1); SGOT 13 U/L (13-39); SGPT/ALT 13 U/L (7-52); SODIUM SERUM 134 mEq/L (136-145)
[2017-07-22] MEDS: D5-0.9NS w/40 mEq KCL 1,000 ML IV SCH (08:07)
[2017-07-22] MEDS: Ferrous Sulfate 325 MG TAB PO SCH ×2 (08:08→16:05)
[2017-07-22] MEDS: Lactobacillus Rhamnosus GG 15 Billion CFU CAP.SPRINK PO SCH (08:08)
--- NOTE | 2017-07-22 09:17 | Diagnostic Imaging Report ---
CT scan right lower leg HISTORY: Pain, swelling Total DLP equals 367 CTDI equals 7.9 Axial sections were obtained from the right knee region down to the right ankle. The exam demonstrates a cutaneous/subcutaneous defect along the medial aspect of the upper calf region. Abnormal density extends into the adjacent musculature with small gas collections. There is poor delineation of the margins of these major muscles. Findings consistent with an inflammatory process. No focal bony lesions are seen. No evidence of osteomyelitis. IMPRESSION: 1. Cutaneous/subcutaneous defect associated with abnormal density extending into the adjacent musculature along the posterior medial aspect of the upper calf region. Multiple small air collections noted. Findings consistent with an inflammatory process (cellulitis). No discrete loculated fluid collections are seen.
--- NOTE | 2017-07-22 10:10 | General Progress Note ---
Subjective - Review of Systems Service Date: 07/22/17 Events since last encounter: tried central line, complaining of severe pain even after Lidocaine injection Objective - Results Result Diagrams: 07/22/17 05:20 07/22/17 05:20 Recent Labs: Laboratory Last Values WBC 13.7 Th/cmm (4.8-10.8) H 07/22/17 05:20 RBC 3.90 Mil/cmm (3.80-5.10) 07/22/17 05:20 Hgb 9.4 gm/dL (12-16) L 07/22/17 05:20 Hct 29.0 % (41.0-60) L 07/22/17 05:20 MCV 74.5 fl (81-100) L 07/22/17 05:20 MCH 24.1 pg (27.0-31.0) L 07/22/17 05:20 MCHC Differential 32.3 pg (28.0-36.0) 07/22/17 05:20 RDW 13.9 % (11.5-20.0) 07/22/17 05:20 Plt Count 545 Th/cmm (150-400) H 07/22/17 05:20 MPV 6.7 fl 07/22/17 05:20 Neutrophils % 89.9 % (40.0-80.0) H 07/22/17 05:20 Band Neutrophils % 1 % (0-10) 07/18/17 23:00 Lymphocytes % 6.4 % (20.0-50.0) L 07/22/17 05:20 Monocytes % 3.2 % (2.0-10.0) 07/22/17 05:20 Eosinophils % 0.5 % (0.0-5.0) 07/22/17 05:20 Basophils % 0.0 % (0.0-2.0) 07/22/17 05:20 Neutrophils (Manual) 80 % (40-80) 07/18/17 23:00 Lymphocytes 15 % (20-50) L 07/18/17 23:00 Monocytes 4 % (2-10) 07/18/17 23:00 Platelet Estimate INCREASED PLATELETS (NORMAL) 07/18/17 23:00 Microcytosis 1+ 07/18/17 23:00 PT 11.7 SECONDS (9.5-11.5) H 07/19/17 05:15 INR 1.12 (0.5-1.4) 07/19/17 05:15 Sodium 134 mEq/L (136-145) L 07/22/17 05:20 Potassium 3.6 mEq/L (3.5-5.1) 07/22/17 05:20 Chloride 103 mEq/L (98-107) 07/22/17 05:20 Carbon Dioxide 23.7 mEq/L (21.0-31.0) 07/22/17 05:20 Anion Gap 10.9 (7.0-16.0) 07/22/17 05:20 BUN 9 mg/dL (7-25) 07/22/17 05:20 Creatinine 0.7 mg/dL (0.6-1.2) 07/22/17 05:20 Est GFR ( Amer) > 60.0 ml/min (>90) 07/22/17 05:20 Est GFR (Non-Af Amer) > 60.0 ml/min 07/22/17 05:20 BUN/Creatinine Ratio 12.9 07/22/17 05:20 Glucose 129 mg/dL (70-105) H 07/22/17 05:20 Whole Bld Lactic Acid 1.73 mmol/L (0.60-1.99) 07/18/17 23:00 Calcium 8.5 mg/dL (8.6-10.3) L 07/22/17 05:20 Magnesium 2.1 mg/dL (1.9-2.7) 07/19/17 05:15 Iron 10 ug/dL (27-159) L 07/18/17 23:00 TIBC 267 ug/dL (250-450) 07/18/17 23:00 Iron Saturation 4 % (15-55) L 07/18/17 23:00 Unsaturated IBC 257 ug/dL (131-425) 07/18/17 23:00 Ferritin 236 ng/mL (15-150) H 07/18/17 23:00 Total Bilirubin 0.2 mg/dL (0.3-1.0) L 07/22/17 05:20 AST 13 U/L (13-39) 07/22/17 05:20 ALT 13 U/L (7-52) 07/22/17 05:20 Alkaline Phosphatase 108 U/L (34-104) H 07/22/17 05:20 Total Protein 6.0 gm/dL (6.0-8.3) 07/22/17 05:20 Albumin 2.6 gm/dL (3.7-5.3) L 07/22/17 05:20 Globulin 3.4 gm/dL 07/22/17 05:20 Albumin/Globulin Ratio 0.8 (1.0-1.8) L 07/22/17 05:20 Triglycerides 139 mg/dL (<150) 07/18/17 23:00 Cholesterol 100 mg/dL (<200) 07/18/17 23:00 LDL Cholesterol Direct 52 mg/dL (75-193) L 07/18/17 23:00 HDL Cholesterol 21 mg/dL (23-92) L 07/18/17 23:00 Free T4 1.63 ng/dL (0.82-1.77) 07/18/17 23:00 TSH 0.59 uIU/ml (0.34-5.60) 07/18/17 23:00 Beta HCG, Quant < 1 mIU/mL (0-0) H 07/19/17 12:52 Vancomycin Trough 19.8 ug/mL (10-20) 07/21/17 07:00 Urine Opiates Screen POSITIVE (NEGATIVE) H 07/20/17 22:15 Urine Methadone Screen NEGATIVE (NEGATIVE) 07/20/17 22:15 Ur Barbiturates Screen NEGATIVE (NEGATIVE) 07/20/17 22:15 Ur Tricyclics Screen NEGATIVE (NEGATIVE) 07/20/17 22:15 Ur Phencyclidine Scrn NEGATIVE (NEGATIVE) 07/20/17 22:15 Amphetamines Screen POSITIVE (NEGATIVE) H 07/20/17 22:15 U Methamphetamines Scrn POSITIVE (NEGATIVE) H 07/20/17 22:15 U Benzodiazepines Scrn POSITIVE (NEGATIVE) H 07/20/17 22:15 U Cocaine Metab Screen NEGATIVE (NEGATIVE) 07/20/17 22:15 U Cannabinoids Screen NEGATIVE (NEGATIVE) 07/20/17 22:15 Hepatitis A IgM Ab Negative (Negative) 07/19/17 09:05 Hep Bs Antigen Negative (Negative) 07/19/17 09:05 Hep B Core IgM Ab Negative (Negative) 07/19/17 09:05 Hepatitis C Antibody >11.0 s/co ratio (0.0-0.9) H 07/19/17 09:05 HIV 1&2 Antibody Screen NEGATIVE (NEG) 07/19/17 05:45 - Physical Exam Vitals and I&O: Vital Signs Temp 98.6 F 07/22/17 04:00 Pulse 97 07/22/17 04:00 Resp 18 07/22/17 04:00 BP 111/65 07/22/17 04:00 Pulse Ox 98 07/22/17 04:00 Intake & Output 07/21/17 07/22/17 07/22/17 18:59 06:59 18:59 Intake Total 1300 1750 Output Total 0 Balance 1300 1750 Weight (lbs) 58.513 kg Intake: Intake, IV Amount 1300 700 Clindamycin 600mg/50mL 100 600 mg In 50 ml @ 100 mls /hr IV Q8HR [facility] Rx#: [id number] D5-0.9NS w/40 mEq KCL 1, 1000 000 ml @ 100 mls/hr IV . Q10H [facility] Rx#:[id number] Piperacillin Sodium/ 50 100 Tazobact 3.375 gm In Sodium Chloride 0.9% 50 ml @ 100 mls/hr IV Q6HR [facility] Rx#:[id number] Vancomycin HCl 1 gm In 250 500 Sodium Chloride 0.9% 250 ml @ 165 mls/hr IV Q8H [facility] Rx#:[id number] Oral 1050 Output: Stool 0 Other: # Voids 7 # Bowel Movements 1 Active Medications: Current Medications Ferrous Sulfate (Iron) 325 mg PO BID [facility] Stop: 09/18/17 08:59 Last Admin: 07/22/17 08:08 Dose: 325 mg Clindamycin Phosphate (Cleocin Pb) 600 mg in 50 mls @ 100 mls/hr IV Q8HR [facility] Stop: 09/17/17 04:59 Last Admin: 07/22/17 04:57 Dose: 100 mls/hr Piperacillin Sod/Tazobactam (Sod 3.375 gm/ Sodium Chloride) 50 mls @ 100 mls/ hr IV Q6HR [facility] Stop: 09/17/17 05:59 Last Admin: 07/22/17 05:53 Dose: 100 mls/hr Potassium Chloride/Dextrose/Sod Cl (D5-0.9ns W/40 Meq Kcl) 1,000 mls @ 100 mls/ hr IV .Q10H [facility] Stop: 09/17/17 09:59 Last Admin: 07/22/17 08:07 Dose: 100 mls/hr Vancomycin HCl 1 gm/ Sodium (Chloride) 250 mls @ 165 mls/hr IV Q8H [facility] Stop: 09/19/17 00:00 Last Admin: 07/22/17 08:07 Dose: 165 mls/hr Lactobacillus Rhamnosus (Culturelle 15b) 1 each PO DAILY JONELLE Stop: 09/20/17 08:59 Last Admin: 07/22/17 08:08 Dose: 1 each Lorazepam (Ativan) 1 mg PO Q6HR PRN; Protocol PRN Reason: anxiety Stop: 09/19/17 10:55 Miscellaneous (Vancomycin Iv Per Pharmacy) 1 [facility] PRN PRN PRN Reason: PROTOCOL Stop: 09/17/17 14:56 Miscellaneous (Probiotic Screen) 1 [facility] PRN PRN PRN Reason: PROTOCOL Stop: 09/19/17 12:14 Morphine Sulfate (Morphine) 2 mg IVP Q4HR PRN PRN Reason: pain Stop: 09/17/17 09:31 Last Admin: 07/22/17 00:32 Dose: 2 mg General: Alert, Oriented x3, Cooperative, No acute distress HEENT: Atraumatic, PERRLA, EOMI Neck: Supple, JVD Cardiovascular: Regular rate, Normal S1, Normal S2 Lungs: Clear to auscultation Abdomen: Bowel sounds Extremities: Other (right thigh intact dressings noted.) - Procedures Procedures: Procedures Procedure Code Date ROSSANA SUBQ TISSUE 20 SQ CM/< 37606 07/18/17 DPT ADMINISTRATION 99.39 08/05/14 DRAINAGE OF SKIN ABSCESS 38971 08/05/14 EXCISION OF L UP LEG SUBCU/FASCIA, OPEN APPROACH [id number] 07/18/17 EXCISION OF R LOW LEG SUBCU/FASCIA, OPEN APPROACH [id number] 07/18/17 OTHER SKIN & SUBQ I D 86.04 08/05/14 Nutritional Asmnt/Malnutr-PDOC - Dietary Evaluation Malnutrition Findings (Please click <Entered> for more info): Nutritional Asmnt/Malnutrition Start: 07/20/17 15: 22 Text: Status: Complete Freq: Document 07/20/17 15:22 LCHENG (Rec: 07/20/17 15:35 [facility] [email or web address]) Nutritional Asmnt/Malnutrition Patient General Information Nutritional Screening High Risk Consult Diagnosis cellulitis Pertinent Medical Hx/Surgical Hx heroin addiction Subjective Information Consult received for multiple wounds. Pt seen lying in bed, awake and alert. Pt reported appetite normal as usual, no wt change noted. Pt dislike milk. Pt had debridement on . Per RN, pt had many food from outside. [facility] Pertinent Medications Iron, piperacillin, D5-0.9ns w 40 meq kcl, vancomycin Pertinent Labs 07/20 Na 136, K 3.3, Cl 107, Cr 0.4, Glucose 110, Ca 8.4 Nutritional Hx/Data Height 1.63 m Height (Calculated Centimeters) 162.6 Current Weight (lbs) 58.967 kg Weight (Calculated Kilograms) 59.0 Weight (Calculated Grams) 87044.0 [place] Body Weight 120 Body Mass Index (BMI) 22.3 Weight Status Overweight GI Symptoms GI Symptoms None Last BM no record Difficult in: None Skin Integrity/Comment: reddened to right hip, left lower leg, ulceration to right lower leg. Current %PO Good (75-100%) Estimated Nutritional Goals BEE in Kcals: Using Current wt Calories/Kcals/Kg 25-30 Kcals Calculated 3460-0024 Protein: Using Current wt Protein g/k-1.2 Protein Calculated 59-71 Fluid: ml 1475-1770ml (1ml/kcal) Nutritional Problem 1. Problem Problem increased nutrition needs ( protein) Etiology increased metabolic demand for wound healing Signs/Symptoms: ulceration to right lower leg Malnutrition Alert Protein-Calorie Malnutrition N/A Is there a minimum of two criteria No selected? Query Text:Check all the applicable criteria. A minimum of two criteria are recommended for diagnosis of either severe or non-severe malnutrition. Intervention/Recommendation Comments 1. Recommend regular diet considering no hx of DM. 2. Monitor PO intake, wt, labs and skin integrity 3. F/U as moderate risk in 3-5 days, 07/23-07/25 Expected Outcomes/Goals Expected Outcomes/Goals 1. PO intake to meet at least 75% of nutritional needs. 2. Wt stability, wound to heal , labs to approach WNL.
--- NOTE | 2017-07-22 11:42 | Progress Notes ---
DATE: 07/22/2017 SUBJECTIVE: The patient seen and examined. The patient is lying in the bed. The patient denies any chest pain, shortness of breath, palpitation, dizziness, nausea, vomiting. OBJECTIVE: VITAL SIGNS: The patient remained afebrile. Blood pressure is 111/65. HEENT: Poor dentition. NECK: Supple, no JVD. HEART: Regular, no murmur. CHEST: Lung equal in expansion. No wheezing, no crackles. ABDOMEN: Soft. No guarding, no rigidity. Liver and spleen not palpable. No palpable masses. EXTREMITIES: No edema. LABORATORY DATA: CT scan of the right leg remarkable for cutaneous subcutaneous defect associated with abnormal density consistent with multiple small air collection consistent with cellulitis, but no loculated fluid was noted. Cultures are positive for group B strep. White count of 13.7, hemoglobin 9.4, platelet count of 545, potassium is 3.6, BUN and creatinine is normal. Albumin of 2.6. CLINICAL IMPRESSION: 1. Right leg cellulitis, abscess, status post incision and drainage. 2. Microcytic hypochromic anemia, most likely from iron deficiency. 3. History of IV heroin use. 4. Psychotic disorder. PLAN: Definite discharge plan based on infectious disease recommendations, IV versus p.o. antibiotic. The patient has IV line and the patient has history of IV drug use, extremely complex that she may start using IV access for her IV drug use. We will discuss with Infectious Disease at this time to make a decision about discharging the patient on p.o. antibiotic. Meanwhile, continue current medication as prescribed. The patient can be transferred to Med/Surg status. JOB# [id number]
--- NOTE | 2017-07-22 14:29 | Infectious Disease Prog Note ---
Infectious Disease Subjective - Review of Systems Service Date: 07/22/17 Subjective: No fever. Infectious Disease Objective - Results Result Diagrams: 07/22/17 05:20 07/22/17 05:20 Recent Labs: Laboratory Last Values WBC 13.7 Th/cmm (4.8-10.8) H 07/22/17 05:20 RBC 3.90 Mil/cmm (3.80-5.10) 07/22/17 05:20 Hgb 9.4 gm/dL (12-16) L 07/22/17 05:20 Hct 29.0 % (41.0-60) L 07/22/17 05:20 MCV 74.5 fl (81-100) L 07/22/17 05:20 MCH 24.1 pg (27.0-31.0) L 07/22/17 05:20 MCHC Differential 32.3 pg (28.0-36.0) 07/22/17 05:20 RDW 13.9 % (11.5-20.0) 07/22/17 05:20 Plt Count 545 Th/cmm (150-400) H 07/22/17 05:20 MPV 6.7 fl 07/22/17 05:20 Neutrophils % 89.9 % (40.0-80.0) H 07/22/17 05:20 Band Neutrophils % 1 % (0-10) 07/18/17 23:00 Lymphocytes % 6.4 % (20.0-50.0) L 07/22/17 05:20 Monocytes % 3.2 % (2.0-10.0) 07/22/17 05:20 Eosinophils % 0.5 % (0.0-5.0) 07/22/17 05:20 Basophils % 0.0 % (0.0-2.0) 07/22/17 05:20 Neutrophils (Manual) 80 % (40-80) 07/18/17 23:00 Lymphocytes 15 % (20-50) L 07/18/17 23:00 Monocytes 4 % (2-10) 07/18/17 23:00 Platelet Estimate INCREASED PLATELETS (NORMAL) 07/18/17 23:00 Microcytosis 1+ 07/18/17 23:00 PT 11.7 SECONDS (9.5-11.5) H 07/19/17 05:15 INR 1.12 (0.5-1.4) 07/19/17 05:15 Sodium 134 mEq/L (136-145) L 07/22/17 05:20 Potassium 3.6 mEq/L (3.5-5.1) 07/22/17 05:20 Chloride 103 mEq/L (98-107) 07/22/17 05:20 Carbon Dioxide 23.7 mEq/L (21.0-31.0) 07/22/17 05:20 Anion Gap 10.9 (7.0-16.0) 07/22/17 05:20 BUN 9 mg/dL (7-25) 07/22/17 05:20 Creatinine 0.7 mg/dL (0.6-1.2) 07/22/17 05:20 Est GFR ( Amer) > 60.0 ml/min (>90) 07/22/17 05:20 Est GFR (Non-Af Amer) > 60.0 ml/min 07/22/17 05:20 BUN/Creatinine Ratio 12.9 07/22/17 05:20 Glucose 129 mg/dL (70-105) H 07/22/17 05:20 Whole Bld Lactic Acid 1.73 mmol/L (0.60-1.99) 07/18/17 23:00 Calcium 8.5 mg/dL (8.6-10.3) L 07/22/17 05:20 Magnesium 2.1 mg/dL (1.9-2.7) 07/19/17 05:15 Iron 10 ug/dL (27-159) L 07/18/17 23:00 TIBC 267 ug/dL (250-450) 07/18/17 23:00 Iron Saturation 4 % (15-55) L 07/18/17 23:00 Unsaturated IBC 257 ug/dL (131-425) 07/18/17 23:00 Ferritin 236 ng/mL (15-150) H 07/18/17 23:00 Total Bilirubin 0.2 mg/dL (0.3-1.0) L 07/22/17 05:20 AST 13 U/L (13-39) 07/22/17 05:20 ALT 13 U/L (7-52) 07/22/17 05:20 Alkaline Phosphatase 108 U/L (34-104) H 07/22/17 05:20 Total Protein 6.0 gm/dL (6.0-8.3) 07/22/17 05:20 Albumin 2.6 gm/dL (3.7-5.3) L 07/22/17 05:20 Globulin 3.4 gm/dL 07/22/17 05:20 Albumin/Globulin Ratio 0.8 (1.0-1.8) L 07/22/17 05:20 Triglycerides 139 mg/dL (<150) 07/18/17 23:00 Cholesterol 100 mg/dL (<200) 07/18/17 23:00 LDL Cholesterol Direct 52 mg/dL (75-193) L 07/18/17 23:00 HDL Cholesterol 21 mg/dL (23-92) L 07/18/17 23:00 Free T4 1.63 ng/dL (0.82-1.77) 07/18/17 23:00 TSH 0.59 uIU/ml (0.34-5.60) 07/18/17 23:00 Beta HCG, Quant < 1 mIU/mL (0-0) H 07/19/17 12:52 Vancomycin Trough 19.8 ug/mL (10-20) 07/21/17 07:00 Urine Opiates Screen POSITIVE (NEGATIVE) H 07/20/17 22:15 Urine Methadone Screen NEGATIVE (NEGATIVE) 07/20/17 22:15 Ur Barbiturates Screen NEGATIVE (NEGATIVE) 07/20/17 22:15 Ur Tricyclics Screen NEGATIVE (NEGATIVE) 07/20/17 22:15 Ur Phencyclidine Scrn NEGATIVE (NEGATIVE) 07/20/17 22:15 Amphetamines Screen POSITIVE (NEGATIVE) H 07/20/17 22:15 U Methamphetamines Scrn POSITIVE (NEGATIVE) H 07/20/17 22:15 U Benzodiazepines Scrn POSITIVE (NEGATIVE) H 07/20/17 22:15 U Cocaine Metab Screen NEGATIVE (NEGATIVE) 07/20/17 22:15 U Cannabinoids Screen NEGATIVE (NEGATIVE) 07/20/17 22:15 Hepatitis A IgM Ab Negative (Negative) 07/19/17 09:05 Hep Bs Antigen Negative (Negative) 07/19/17 09:05 Hep B Core IgM Ab Negative (Negative) 07/19/17 09:05 Hepatitis C Antibody >11.0 s/co ratio (0.0-0.9) H 07/19/17 09:05 HIV 1&2 Antibody Screen NEGATIVE (NEG) 07/19/17 05:45 - Physical Exam Vitals and I&O: Vital Signs Temp 97.3 F 07/22/17 09:00 Pulse 103 07/22/17 08:00 Resp 20 07/22/17 08:00 BP 106/64 07/22/17 08:00 Pulse Ox 100 07/22/17 08:00 Intake & Output 07/21/17 07/22/17 07/22/17 18:59 06:59 18:59 Intake Total 1300 1800 Output Total 0 Balance 1300 1800 Weight (lbs) 58.513 kg Intake: Intake, IV Amount 1300 750 Clindamycin 600mg/50mL 100 600 mg In 50 ml @ 100 mls /hr IV Q8HR [facility] Rx#: [id number] D5-0.9NS w/40 mEq KCL 1, 1000 000 ml @ 100 mls/hr IV . Q10H [facility] Rx#:[id number] Piperacillin Sodium/ 50 150 Tazobact 3.375 gm In Sodium Chloride 0.9% 50 ml @ 100 mls/hr IV Q6HR JON[facility] Rx#:[id number] Vancomycin HCl 1 gm In 250 500 Sodium Chloride 0.9% 250 ml @ 165 mls/hr IV Q8H [facility] Rx#:[id number] Oral 1050 Output: Stool 0 Other: # Voids 7 # Bowel Movements 1 Active Medications: Current Medications Ferrous Sulfate (Iron) 325 mg PO BID [facility] Stop: 09/18/17 08:59 Last Admin: 07/22/17 08:08 Dose: 325 mg Piperacillin Sod/Tazobactam (Sod 3.375 gm/ Sodium Chloride) 50 mls @ 100 mls/ hr IV Q6HR [facility] Stop: 09/17/17 05:59 Last Admin: 07/22/17 12:22 Dose: 100 mls/hr Potassium Chloride/Dextrose/Sod Cl (D5-0.9ns W/40 Meq Kcl) 1,000 mls @ 100 mls/ hr IV .Q10H [facility] Stop: 09/17/17 09:59 Last Admin: 07/22/17 08:07 Dose: 100 mls/hr Vancomycin HCl 1 gm/ Sodium (Chloride) 250 mls @ 165 mls/hr IV Q8H [facility] Stop: 09/19/17 00:00 Last Admin: 07/22/17 08:07 Dose: 165 mls/hr Lactobacillus Rhamnosus (Culturelle 15b) 1 each PO DAILY [facility] Stop: 09/20/17 08:59 Last Admin: 07/22/17 08:08 Dose: 1 each Lorazepam (Ativan) 1 mg PO Q6HR PRN; Protocol PRN Reason: anxiety Stop: 09/19/17 10:55 Miscellaneous (Vancomycin Iv Per Pharmacy) 1 e[facility] PRN PRN PRN Reason: PROTOCOL Stop: 09/17/17 14:56 Miscellaneous (Probiotic Screen) 1 ea PRN PRN PRN Reason: PROTOCOL Stop: 09/19/17 12:14 Morphine Sulfate (Morphine) 2 mg IVP Q4HR PRN PRN Reason: pain Stop: 09/17/17 09:31 Last Admin: 07/22/17 00:32 Dose: 2 mg General: no acute distress, well developed, well nourished HEENT: atraumatic, normocephalic, PERRLA, EOMI Neck: supple, no thyromegaly Cardiovascular: S1S2, regular, irregular Lungs: clear to auscultation bilaterally, clear to percussion Abdomen: soft, no tender, no distended, no rebound Extremities: other (right lef swelling. with wound.), no cyanosis, no clubbing, no edema Neurological: awake, alert, oriented - Procedures Procedures: Procedures Procedure Code Date ROSSANA SUBQ TISSUE 20 SQ CM/< 44298 07/18/17 DPT ADMINISTRATION 99.39 08/05/14 DRAINAGE OF SKIN ABSCESS 71961 08/05/14 EXCISION OF L UP LEG SUBCU/FASCIA, OPEN APPROACH [id number] 07/18/17 EXCISION OF R LOW LEG SUBCU/FASCIA, OPEN APPROACH [id number] 07/18/17 OTHER SKIN & SUBQ I D 86.04 08/05/14 Infectious Disease Assmt/Plan - Assessment Assessment: 1. Sepsis on presentation. 2. Abscess right leg.Cellulitis of the right leg. I strongly suspect myositis of the right leg. 3. Left leg ulcer. 4. h/o IVDA. - Plan Plan: Continue vanco IV and zosyn. Wound care. Depending on the culture report will define final antbiotic therapy. No picc line or mid line. Central line insertion was failed. Nutritional Asmnt/Malnutr-PDOC - Dietary Evaluation Malnutrition Findings (Please click <Entered> for more info): Nutritional Asmnt/Malnutrition Start: 07/20/17 15: 22 Text: Status: Complete Freq: Document 07/20/17 15:22 [email or web address] (Rec: 07/20/17 15:35 [facility] [email or web address]) Nutritional Asmnt/Malnutrition Patient General Information Nutritional Screening High Risk Consult Diagnosis cellulitis Pertinent Medical Hx/Surgical Hx heroin addiction Subjective Information Consult received for multiple wounds. Pt seen lying in bed, awake and alert. Pt reported appetite normal as usual, no wt change noted. Pt dislike milk. Pt had debridement on . Per RN, pt had many food from outside. Current Diet [facility]/ [facility] Pertinent Medications Iron, piperacillin, D5-0.9ns w 40 meq kcl, vancomycin Pertinent Labs 07/20 Na 136, K 3.3, Cl 107, Cr 0.4, Glucose 110, Ca 8.4 Nutritional Hx/Data Height 1.63 m Height (Calculated Centimeters) 162.6 Current Weight (lbs) 58.967 kg Weight (Calculated Kilograms) 59.0 Weight (Calculated Grams) 19435.0 [place] Body Weight 120 Body Mass Index (BMI) 22.3 Weight Status Overweight GI Symptoms GI Symptoms None Last BM no record Difficult in: None Skin Integrity/Comment: reddened to right hip, left lower leg, ulceration to right lower leg. Current %PO Good (75-100%) Estimated Nutritional Goals BEE in Kcals: Using Current wt Calories/Kcals/Kg 25-30 Kcals Calculated 8101-5861 Protein: Using Current wt Protein g/k-1.2 Protein Calculated 59-71 Fluid: ml 1475-1770ml (1ml/kcal) Nutritional Problem 1. Problem Problem increased nutrition needs ( protein) Etiology increased metabolic demand for wound healing Signs/Symptoms: ulceration to right lower leg Malnutrition Alert Protein-Calorie Malnutrition N/A Is there a minimum of two criteria No selected? Query Text:Check all the applicable criteria. A minimum of two criteria are recommended for diagnosis of either severe or non-severe malnutrition. Intervention/Recommendation Comments 1. Recommend regular diet considering no hx of DM. 2. Monitor PO intake, wt, labs and skin integrity 3. F/U as moderate risk in 3-5 days, 07/23-07/25 Expected Outcomes/Goals Expected Outcomes/Goals 1. PO intake to meet at least 75% of nutritional needs. 2. Wt stability, wound to heal , labs to approach WNL.
[2017-07-22] MEDS ORDERED: Venelex 60gm Tube TP SCH (17:00)
[2017-07-22] MEDS: Venelex 60gm Tube TP SCH (17:31)
[2017-07-22 18:42] LABS: AMPHETAMINE URINE NEGATIVE (NEGATIVE); BARBITURATES URINE NEGATIVE (NEGATIVE); COCAINE METABOLITE QUAL URINE NEGATIVE (NEGATIVE); PHENCYCLIDINE (PCP) URINE NEGATIVE (NEGATIVE)
[2017-07-22 18:43] LABS: BENZODIAZEPINES QUAL URINE POSITIVE (NEGATIVE); CANNABINOID THC NEGATIVE (NEGATIVE); METHADONE URINE POSITIVE (NEGATIVE); METHAMPHETAMINES QUAL URINE POSITIVE (NEGATIVE); OPIATES (MORPHINE) QUAL. URINE POSITIVE (NEGATIVE); TRICYCLICS (TCA) QUAL. URINE NEGATIVE (NEGATIVE)
[2017-07-23 05:47] LABS: % EOSINOPHILS 2.1 % (0.0-5.0); % LYMPHOCYTES 15.9 % (20.0-50.0); % MONOCYTES 10.5 % (2.0-10.0); % NEUTROPHILS 71.5 % (40.0-80.0); EOSINOPHILE ABSOLUTE 0.3 Th/cmm (0.1-0.4); HEMATOCRIT 29.1 % (41.0-60); HEMOGLOBIN 9.4 gm/dL (12-16); MEAN CORPUSCULAR HEMOGLOBIN 24.2 pg (27.0-31.0); MEAN CORPUSCULAR HGB CONC 32.3 pg (28.0-36.0); MEAN PLATELET VOLUME 6.8 fl; MONOCYTE ABSOLUTE 1.3 Th/cmm (0.3-1.0); NEUTROPHILE ABSOLUTE 8.9 Th/cmm (1.8-8.0); PLATELET COUNT 502 Th/cmm (150-400); RED BLOOD COUNT 3.89 Mil/cmm (3.80-5.10); RED CELL DISTRIBUTION WIDTH 14.1 % (11.5-20.0)
[2017-07-23 05:54] LABS: WHITE BLOOD COUNT 12.5 Th/cmm (4.8-10.8)
[2017-07-23 06:08] LABS: ALB/GLOB RATIO 0.8 (1.0-1.8); ALBUMIN 2.5 gm/dL (3.7-5.3); ALKALINE PHOSPHATASE 87 U/L (34-104); BILIRUBIN,TOTAL 0.2 mg/dL (0.3-1.0); BUN - UREA NITROGEN 8 mg/dL (7-25); CALCIUM SERUM 8.5 mg/dL (8.6-10.3); CARBON DIOXIDE 25.7 mEq/L (21.0-31.0); CHLORIDE 105 mEq/L (98-107); CREATININE - SERUM 0.6 mg/dL (0.6-1.2); GFR AFRICAN-AMERICAN > 60.0 ml/min (>90); GFR NON AFRICAN-AMERICAN > 60.0 ml/min; GLUCOSE 142 mg/dL (70-105); POTASSIUM SERUM 3.7 mEq/L (3.5-5.1); SGOT 13 U/L (13-39); SGPT/ALT 12 U/L (7-52); SODIUM SERUM 135 mEq/L (136-145); TOTAL PROTEIN,SERUM 5.8 gm/dL (6.0-8.3)
--- NOTE | 2017-07-23 09:32 | Diagnostic Imaging Report ---
Chest x-ray single view History: Pneumonia Comparison: None The heart size is normal. No focal pulmonary parenchymal processes. No hilar or mediastinal abnormalities. There is evidence of approximately 30% left apical pneumothorax. Clinical correlation and follow-up examination recommended. Impression: 30% left apical pneumothorax. Nursing station was called at 9:29AM.
[2017-07-23] MEDS: Ferrous Sulfate 325 MG TAB PO SCH ×2 (09:33→19:51)
[2017-07-23] MEDS: Lactobacillus Rhamnosus GG 15 Billion CFU CAP.SPRINK PO SCH (09:33)
[2017-07-23] MEDS: Venelex 60gm Tube TP SCH (13:59)
[2017-07-23] MEDS: D5-0.9NS w/40 mEq KCL 1,000 ML IV SCH (14:34)
[2017-07-23] MEDS ORDERED: Propofol **SURGERY USE ONLY** 20 ML IV ONE (14:58)
[2017-07-23] MEDS ORDERED: HYDROmorphone 2 mg/mL 1mL Vial IVP PRN (16:26)
[2017-07-23] MEDS ORDERED: HYDROmorphone 2 mg/mL 1mL Vial ONE (16:54)
--- NOTE | 2017-07-23 18:05 | Operative Report ---
DATE OF SURGERY: 07/23/2017 PREOPERATIVE DIAGNOSES: 1. Polydrug abuse. 2. Abscess, right thigh. 3. Left pneumothorax 30%. POSTOPERATIVE DIAGNOSES: 1. Polydrug abuse. 2. Abscess, right thigh. 3. Left pneumothorax 30%. OPERATION DONE: 1. Placement of central line, left subclavian vein. 2. Placement of left chest tube. 3. Debridement of right calf abscess. SURGEON: Matilde Burns M.D. ANESTHESIA: General. ANESTHESIOLOGIST: Haider. ESTIMATED BLOOD LOSS: 10 mL. PROCEDURE IN DETAIL: The patient was given general anesthesia via LMA. The left chest was prepped with Betadine and draped in appropriate manner. A 1% lidocaine was used to infiltrate the area identified on ultrasound. An incision was made and a size 18 needle was used to locate the vein with #1 stick. Guide was inserted, the dilator and then the triple lumen central line. This anchored to the skin with 3-0 silk. A [place] 20 chest tube was placed in the anterior axillary line at the seventh intercostal space. This connected to underwater seal and suction. Portable chest x-ray will be ordered postop. The right calf was prepped with Betadine and draped. A finger was used to dissect under the subcutaneous tissues. The wide undermined area was noted on the first operation and on this occasion as well. This was packed with Xeroform gauze and to facilitate further drainage. A Narendra-Man drain was left and compression dressing was placed over the wound. The patient tolerated the procedure well. JOB# [id number]
--- NOTE | 2017-07-23 18:10 | Progress Notes ---
DATE: 07/23/2017 PATIENT'S ID: A 27-year-old female. SUBJECTIVE: The patient is seen and examined. The patient did have central line placement as per Infectious Disease recommendations, considering patient will require IV antibiotic, which was placed by Dr. Burns. Chest x-ray was done on 07/23/2017, which revealed 30% left apical pneumothorax, though the patient remained asymptomatic. The patient has no new complaints. OBJECTIVE: VITAL SIGNS: Temperature 97, pulse 94, respiratory rate is 18, blood pressure 114/68. HEENT: No facial asymmetry. NECK: Supple, no JVD. HEART: Regular. CHEST AND LUNGS: Equal in expansion with no expiratory wheezing. ABDOMEN: Soft. No guarding, no rigidity. Bowel sounds present. EXTREMITIES: Intact dressing on the right leg noted. AVAILABLE DIAGNOSTIC DATA: White count of 12.5, hemoglobin 9.4, platelet count of 502. Sodium 135, potassium 3.7, chloride 105, CO2 of ___. BUN and creatinine is 8 and 0.6. Albumin of 2.5. Urine drug screen was again done yesterday, which remarkable for opiates along with methamphetamine and benzodiazepine. CLINICAL IMPRESSION: 1. A 30% apical pneumothorax after central line placement. The patient remained hemodynamically stable. Just need clinical observation for now. 2. Poor IV access, required central line placement. 3. Polysubstance abuse with IV heroin use. 4. Right leg abscess, cellulitis with a component of myositis. 6. Sepsis on presentation. PLAN: 1. Clinical observation for now. 2. IV antibiotic as per Infectious Disease. 3. General nursing care. 4. Follow up lab. 5. Nutritional support. 6. The patient will require long-term IV antibiotic. The patient is to be placed for short term for IV antibiotic infusion. We will discuss with rn case manager about this as well. JOB# [id number]
[2017-07-23] MEDS: Nicotine 21 mg/24 hr Tdm TD SCH (20:45)
[2017-07-23] MEDS: Morphine Sulfate 4 mg/mL 1mL Syr IVP PRN (21:43)
--- NOTE | 2017-07-23 23:59 | Infectious Disease Prog Note ---
Infectious Disease Subjective - Review of Systems Service Date: 07/23/17 Events since last encounter: Left sided subclavian TLC was placed and she developed Left sided pneumothorax. Chest tube was placed in. The right leg wound debridement was performed. Subjective: No fever. Infectious Disease Objective - Results Result Diagrams: 07/23/17 05:00 07/23/17 05:00 Recent Labs: Laboratory Last Values WBC 12.5 Th/cmm (4.8-10.8) H 07/23/17 05:00 RBC 3.89 Mil/cmm (3.80-5.10) 07/23/17 05:00 Hgb 9.4 gm/dL (12-16) L 07/23/17 05:00 Hct 29.1 % (41.0-60) L 07/23/17 05:00 MCV 75.0 fl (81-100) L 07/23/17 05:00 MCH 24.2 pg (27.0-31.0) L 07/23/17 05:00 MCHC Differential 32.3 pg (28.0-36.0) 07/23/17 05:00 RDW 14.1 % (11.5-20.0) 07/23/17 05:00 Plt Count 502 Th/cmm (150-400) H 07/23/17 05:00 MPV 6.8 fl 07/23/17 05:00 Neutrophils % 71.5 % (40.0-80.0) 07/23/17 05:00 Band Neutrophils % 1 % (0-10) 07/18/17 23:00 Lymphocytes % 15.9 % (20.0-50.0) L 07/23/17 05:00 Monocytes % 10.5 % (2.0-10.0) H 07/23/17 05:00 Eosinophils % 2.1 % (0.0-5.0) 07/23/17 05:00 Basophils % 0.0 % (0.0-2.0) 07/23/17 05:00 Neutrophils (Manual) 80 % (40-80) 07/18/17 23:00 Lymphocytes 15 % (20-50) L 07/18/17 23:00 Monocytes 4 % (2-10) 07/18/17 23:00 Platelet Estimate INCREASED PLATELETS (NORMAL) 07/18/17 23:00 Microcytosis 1+ 03/19/18 23:00 PT 11.7 SECONDS (9.5-11.5) H 07/19/17 05:15 INR 1.12 (0.5-1.4) 07/19/17 05:15 Sodium 135 mEq/L (136-145) L 07/23/17 05:00 Potassium 3.7 mEq/L (3.5-5.1) 07/23/17 05:00 Chloride 105 mEq/L (98-107) 07/23/17 05:00 Carbon Dioxide 25.7 mEq/L (21.0-31.0) 07/23/17 05:00 Anion Gap 8.0 (7.0-16.0) 07/23/17 05:00 BUN 8 mg/dL (7-25) 07/23/17 05:00 Creatinine 0.6 mg/dL (0.6-1.2) 07/23/17 05:00 Est GFR ( Amer) > 60.0 ml/min (>90) 07/23/17 05:00 Est GFR (Non-Af Amer) > 60.0 ml/min 07/23/17 05:00 BUN/Creatinine Ratio 13.3 07/23/17 05:00 Glucose 142 mg/dL (70-105) H 07/23/17 05:00 Whole Bld Lactic Acid 1.73 mmol/L (0.60-1.99) 07/18/17 23:00 Calcium 8.5 mg/dL (8.6-10.3) L 07/23/17 05:00 Magnesium 2.1 mg/dL (1.9-2.7) 07/19/17 05:15 Iron 10 ug/dL (27-159) L 07/18/17 23:00 TIBC 267 ug/dL (250-450) 07/18/17 23:00 Iron Saturation 4 % (15-55) L 07/18/17 23:00 Unsaturated IBC 257 ug/dL (131-425) 07/18/17 23:00 Ferritin 236 ng/mL (15-150) H 07/18/17 23:00 Total Bilirubin 0.2 mg/dL (0.3-1.0) L 07/23/17 05:00 AST 13 U/L (13-39) 07/23/17 05:00 ALT 12 U/L (7-52) 07/23/17 05:00 Alkaline Phosphatase 87 U/L (34-104) 07/23/17 05:00 Total Protein 5.8 gm/dL (6.0-8.3) L 07/23/17 05:00 Albumin 2.5 gm/dL (3.7-5.3) L 07/23/17 05:00 Globulin 3.3 gm/dL 07/23/17 05:00 Albumin/Globulin Ratio 0.8 (1.0-1.8) L 07/23/17 05:00 Triglycerides 139 mg/dL (<150) 07/18/17 23:00 Cholesterol 100 mg/dL (<200) 07/18/17 23:00 LDL Cholesterol Direct 52 mg/dL (75-193) L 07/18/17 23:00 HDL Cholesterol 21 mg/dL (23-92) L 07/18/17 23:00 Free T4 1.63 ng/dL (0.82-1.77) 07/18/17 23:00 TSH 0.59 uIU/ml (0.34-5.60) 07/18/17 23:00 Beta HCG, Quant < 1 mIU/mL (0-0) H 07/19/17 12:52 Vancomycin Trough 16.2 ug/mL (10-20) 07/22/17 15:00 Urine Opiates Screen POSITIVE (NEGATIVE) H 07/22/17 18:00 Urine Methadone Screen POSITIVE (NEGATIVE) 07/22/17 18:00 Ur Barbiturates Screen NEGATIVE (NEGATIVE) 07/22/17 18:00 Ur Tricyclics Screen NEGATIVE (NEGATIVE) 07/22/17 18:00 Ur Phencyclidine Scrn NEGATIVE (NEGATIVE) 07/22/17 18:00 Amphetamines Screen NEGATIVE (NEGATIVE) 07/22/17 18:00 U Methamphetamines Scrn POSITIVE (NEGATIVE) H 07/22/17 18:00 U Benzodiazepines Scrn POSITIVE (NEGATIVE) H 07/22/17 18:00 U Cocaine Metab Screen NEGATIVE (NEGATIVE) 07/22/17 18:00 U Cannabinoids Screen NEGATIVE (NEGATIVE) 07/22/17 18:00 Hepatitis A IgM Ab Negative (Negative) 07/19/17 09:05 Hep Bs Antigen Negative (Negative) 07/19/17 09:05 Hep B Core IgM Ab Negative (Negative) 07/19/17 09:05 Hepatitis C Antibody >11.0 s/co ratio (0.0-0.9) H 07/19/17 09:05 HIV 1&2 Antibody Screen NEGATIVE (NEG) 07/19/17 05:45 - Physical Exam Vitals and I&O: Vital Signs Temp 97.8 F 07/23/17 22:30 Pulse 84 07/23/17 22:30 Resp 18 07/23/17 22:30 BP 103/69 07/23/17 22:30 Pulse Ox 98 07/23/17 22:30 Intake & Output 07/23/17 07/23/17 07/24/17 06:59 18:59 06:59 Intake Total 350 1350 50 Output Total 1200 Balance 350 150 50 Weight (lbs) 58.967 kg 58.967 kg Intake: Intake, IV Amount 350 350 50 Piperacillin Sodium/ 100 100 50 Tazobact 3.375 gm In Sodium Chloride 0.9% 50 ml @ 100 mls/hr IV Q6HR [facility] Rx#:[id number] Vancomycin HCl 1 gm In 250 250 Sodium Chloride 0.9% 250 ml @ 165 mls/hr IV Q8H [facility] Rx#:[id number] Oral 1000 Output: Urine 1200 Other: Weight Source Bedscale Bedscale Active Medications: Current Medications [place] Oil/[place] Balsam/Trypsin (Venelex) 1 appl TP BID J[facility]ELLE Stop: 09/20/17 16:59 Last Admin: 07/23/17 13:59 Dose: 1 appl Ferrous Sulfate (Iron) 325 mg PO BID JONELLE Stop: 09/18/17 08:59 Last Admin: 07/23/17 19:51 Dose: Not Given Hydromorphone HCl (Dilaudid) 2 mg IVP Q4HR PRN PRN Reason: Pain (Severe) Stop: 07/24/17 16:25 Piperacillin Sod/Tazobactam (Sod 3.375 gm/ Sodium Chloride) 50 mls @ 100 mls/ hr IV Q6HR [facility] Stop: 09/17/17 05:59 Last Infusion: 07/23/17 20:25 Dose: Infused Potassium Chloride/Dextrose/Sod Cl (D5-0.9ns W/40 Meq Kcl) 1,000 mls @ 100 mls/ hr IV .Q10H [facility] Stop: 09/17/17 09:59 Last Admin: 07/23/17 14:34 Dose: 100 mls/hr Vancomycin HCl 1 gm/ Sodium (Chloride) 250 mls @ 165 mls/hr IV Q8H [facility] Stop: 09/19/17 00:00 Last Admin: 07/23/17 23:21 Dose: 165 mls/hr Lactobacillus Rhamnosus (Culturelle 15b) 1 each PO DAILY [facility] Stop: 09/20/17 08:59 Last Admin: 07/23/17 09:33 Dose: 1 each Lorazepam (Ativan) 1 mg PO Q6HR PRN; Protocol PRN Reason: anxiety Stop: 09/19/17 10:55 Last Admin: 07/23/17 02:24 Dose: 1 mg Miscellaneous (Vancomycin Iv Per Pharmacy) 1 ea PRN PRN PRN Reason: PROTOCOL Stop: 09/17/17 14:56 Miscellaneous (Probiotic Screen) 1 [facility] PRN PRN PRN Reason: PROTOCOL Stop: 09/19/17 12:14 Morphine Sulfate (Morphine) 2 mg IVP Q4HR PRN PRN Reason: pain Stop: 09/17/17 09:31 Last Admin: 07/23/17 21:43 Dose: 2 mg Nicotine (Nicotine Transdermal System) 21 mg TD DAILY [facility] Stop: 09/21/17 20:44 Last Admin: 07/23/17 20:45 Dose: 21 mg General: no acute distress, well developed, well nourished HEENT: atraumatic, normocephalic, PERRLA Neck: supple, no thyromegaly Cardiovascular: S1S2, regular, other (Left subclavian TLC.) Lungs: clear to auscultation bilaterally, clear to percussion, other (Left sided chest tube.) Abdomen: soft, no tender Extremities: no cyanosis, no clubbing, no edema Neurological: awake, alert, oriented - Procedures Procedures: Procedures Procedure Code Date ROSSANA SUBQ TISSUE 20 SQ CM/< 93395 07/18/17 DPT ADMINISTRATION 99.39 08/05/14 DRAINAGE OF SKIN ABSCESS 12110 08/05/14 EXCISION OF L UP LEG SUBCU/FASCIA, OPEN APPROACH [id number] 07/18/17 EXCISION OF R LOW LEG SUBCU/FASCIA, OPEN APPROACH [id number] 07/18/17 OTHER SKIN & SUBQ I D 86.04 08/05/14 Infectious Disease Assmt/Plan - Assessment Assessment: 1. Sepsis on presentation. 2. Abscess right leg.Cellulitis of the right leg. I strongly suspect myositis of the right leg. 3. Left leg ulcer. 4. h/o IVDA. 5. MSSA infection. 6. Left pneumothorax. -> Left sided chest tube placement. - Plan Plan: Change vanco IV and zosyn to ancef. Wound care. Depending on the culture report will define final antbiotic therapy. N Nutritional Asmnt/Malnutr-PDOC - Dietary Evaluation Malnutrition Findings (Please click <Entered> for more info): Nutritional Asmnt/Malnutrition Start: 07/20/17 15: 22 Text: Status: Complete Freq: Document 07/20/17 15:22 [email or web address] (Rec: 07/20/17 15:35 [email or web address]) Nutritional Asmnt/Malnutrition Patient General Information Nutritional Screening High Risk Consult Diagnosis cellulitis Pertinent Medical Hx/Surgical Hx heroin addiction Subjective Information Consult received for multiple wounds. Pt seen lying in bed, awake and alert. Pt reported appetite normal as usual, no wt change noted. Pt dislike milk. Pt had debridement on . Per RN, pt had many food from outside. Current Diet Order/ Nutrition [facility] Pertinent Medications Iron, piperacillin, D5-0.9ns w 40 meq kcl, vancomycin Pertinent Labs 07/20 Na 136, K 3.3, Cl 107, Cr 0.4, Glucose 110, Ca 8.4 Nutritional Hx/Data Height 1.63 m Height (Calculated Centimeters) 162.6 Current Weight (lbs) 58.967 kg Weight (Calculated Kilograms) 59.0 Weight (Calculated Grams) 60593.0 [place] Body Weight 120 Body Mass Index (BMI) 22.3 Weight Status Overweight GI Symptoms GI Symptoms None Last BM no record Difficult in: None Skin Integrity/Comment: reddened to right hip, left lower leg, ulceration to right lower leg. Current %PO Good (75-100%) Estimated Nutritional Goals BEE in Kcals: Using Current wt Calories/Kcals/Kg 25-30 Kcals Calculated 1134-5266 Protein: Using Current wt Protein g/k-1.2 Protein Calculated 59-71 Fluid: ml 1475-1770ml (1ml/kcal) Nutritional Problem 1. Problem Problem increased nutrition needs ( protein) Etiology increased metabolic demand for wound healing Signs/Symptoms: ulceration to right lower leg Malnutrition Alert Protein-Calorie Malnutrition N/A Is there a minimum of two criteria No selected? Query Text:Check all the applicable criteria. A minimum of two criteria are recommended for diagnosis of either severe or non-severe malnutrition. Intervention/Recommendation Comments 1. Recommend regular diet considering no hx of DM. 2. Monitor PO intake, wt, labs and skin integrity 3. F/U as moderate risk in 3-5 days, 07/23-07/25 Expected Outcomes/Goals Expected Outcomes/Goals 1. PO intake to meet at least 75% of nutritional needs. 2. Wt stability, wound to heal , labs to approach WNL.
--- NOTE | 2017-07-24 00:28 | Progress Notes ---
DATE: SUBJECTIVE: Chart reviewed and the patient interviewed. Also discussed the patient's condition with the staff and reviewed records and labs. The patient is still anxious. The patient also is minimizing her issues ____ and minimizing her drug use. Also, states ____ she did have a syringe and a liquid that was hidden in her bed and the staff found it, which questionable that it was heroin, but the patient said that she had glucose candy and she drank it. She is still in angry and in irritable mood and she still seems to be not motivated to stop drugs and alcohol. ASSESSMENT: The patient is still high risk relapse. TREATMENT PLAN: We will continue to monitor her behavior and her condition closely. Also, continue to work on her irritability and her addiction and continue to follow up. JOB# [id number]
[2017-07-24] MEDS: D5-0.9NS w/40 mEq KCL 1,000 ML IV SCH ×2 (00:40→08:43)
[2017-07-24 06:24] LABS: % NEUTROPHILS 78.2 % (40.0-80.0); HEMOGLOBIN 8.4 gm/dL (12-16)
[2017-07-24 06:38] LABS: % EOSINOPHILS 3.6 % (0.0-5.0); % LYMPHOCYTES 12.2 % (20.0-50.0); EOSINOPHILE ABSOLUTE 0.6 Th/cmm (0.1-0.4); HEMATOCRIT 25.4 % (41.0-60); MEAN CELL VOLUME 74.9 fl (81-100); MEAN CORPUSCULAR HEMOGLOBIN 24.7 pg (27.0-31.0); MEAN CORPUSCULAR HGB CONC 32.9 pg (28.0-36.0); MEAN PLATELET VOLUME 6.6 fl; NEUTROPHILE ABSOLUTE 12.9 Th/cmm (1.8-8.0); PLATELET COUNT 534 Th/cmm (150-400); RED BLOOD COUNT 3.39 Mil/cmm (3.80-5.10); RED CELL DISTRIBUTION WIDTH 14.4 % (11.5-20.0)
[2017-07-24 06:52] LABS: WHITE BLOOD COUNT 16.5 Th/cmm (4.8-10.8)
[2017-07-24] MEDS: Nicotine 21 mg/24 hr Tdm TD SCH (08:35)
[2017-07-24] MEDS: Lactobacillus Rhamnosus GG 15 Billion CFU CAP.SPRINK PO SCH (08:35)
[2017-07-24] MEDS: Ferrous Sulfate 325 MG TAB PO SCH ×2 (08:35→16:29)
[2017-07-24] MEDS: Venelex 60gm Tube TP SCH ×2 (08:41→16:32)
--- NOTE | 2017-07-24 10:14 | Diagnostic Imaging Report ---
CHEST X-RAY: AP view INDICATION: Central line placement COMPARISON: Chest x-ray earlier the same day at 8 8:22 AM FINDINGS: There has been interval left-sided chest tube placement with tip along the left medial upper hemithorax. There is reexpansion of the left lung with no gross pneumothorax identified. Left-sided central line is seen with tip in the SVC. Heart size is normal. No focal consolidation or effusions. IMPRESSION: Interval left-sided chest tube placement with reexpansion of the left lung. No gross pneumothorax identified New left-sided subclavian central line with tip in the SVC.
--- NOTE | 2017-07-24 10:35 | Diagnostic Imaging Report ---
CHEST X-RAY: AP view INDICATION: Left-sided pneumothorax COMPARISON: Chest x-ray 07/23/2017 at 1713 FINDINGS: Support devices are stable including left chest tube. No evidence of pneumothorax. No focal consolidation or effusions. IMPRESSION: No evidence of pneumothorax. Left-sided chest tube is again noted terminating along the left mid to upper mediastinal border.
[2017-07-24] MEDS: Morphine Sulfate 4 mg/mL 1mL Syr IVP PRN (13:31)
--- NOTE | 2017-07-24 14:31 | Progress Notes ---
DATE: PATIENT'S ID: A 27-year-old female. SUBJECTIVE: The patient is seen and examined. The patient did have a chest tube placement by Dr. Burns for right-sided pneumothorax. PHYSICAL EXAMINATION: GENERAL: On today's exam, the patient is asymptomatic. VITAL SIGNS: Temperature 97.3, pulse 81, respiratory rate 18, and blood pressure 113/83. HEENT: No facial asymmetry. NECK: Supple. No JVD. HEART: Regular. CHEST: Lung equal in expansion. LUNGS: No wheezing. No crackles. The chest tube on the right side noted. ABDOMEN: Abdomen was soft. Bowel sounds present. EXTREMITIES: No edema. CLINICAL IMPRESSION: 1. Right-sided pneumothorax, status post chest tube. 2. Poor IV access, required central line placement. 3. Right calf muscle abscess, cellulitis, and myositis, currently on IV antibiotic. 4. History of IV heroin use. 5. Psychotic disorder. 6. Iron deficiency anemia. PLAN: 1. Chest tube care as per Dr. Burns. 2. IV antibiotic. 3. Pain management. 4. Psych followup. 5. General nursing care. 6. IV fluid. 7. Follow lab. 8. Follow j2ee consultant recommendation. 9. Care plan reviewed. JOB# [id number]
--- NOTE | 2017-07-24 23:38 | Infectious Disease Prog Note ---
Infectious Disease Subjective - Review of Systems Service Date: 07/24/17 Subjective: No fever. Infectious Disease Objective - Results Result Diagrams: 07/24/17 05:25 07/23/17 05:00 Recent Labs: Laboratory Last Values WBC 16.5 Th/cmm (4.8-10.8) H 07/24/17 05:25 RBC 3.39 Mil/cmm (3.80-5.10) L 07/24/17 05:25 Hgb 8.4 gm/dL (12-16) L 07/24/17 05:25 Hct 25.4 % (41.0-60) L 07/24/17 05:25 MCV 74.9 fl (81-100) L 07/24/17 05:25 MCH 24.7 pg (27.0-31.0) L 07/24/17 05:25 MCHC Differential 32.9 pg (28.0-36.0) 07/24/17 05:25 RDW 14.4 % (11.5-20.0) 07/24/17 05:25 Plt Count 534 Th/cmm (150-400) H 07/24/17 05:25 MPV 6.6 fl 07/24/17 05:25 Neutrophils % 78.2 % (40.0-80.0) 07/24/17 05:25 Band Neutrophils % 1 % (0-10) 07/18/17 23:00 Lymphocytes % 12.2 % (20.0-50.0) L 07/24/17 05:25 Monocytes % 6.0 % (2.0-10.0) 07/24/17 05:25 Eosinophils % 3.6 % (0.0-5.0) 07/24/17 05:25 Basophils % 0.0 % (0.0-2.0) 07/24/17 05:25 Neutrophils (Manual) 80 % (40-80) 07/18/17 23:00 Lymphocytes 15 % (20-50) L 07/18/17 23:00 Monocytes 4 % (2-10) 07/18/17 23:00 Platelet Estimate INCREASED PLATELETS (NORMAL) 07/18/17 23:00 Microcytosis 1+ 07/18/17 23:00 PT 11.7 SECONDS (9.5-11.5) H 07/19/17 05:15 INR 1.12 (0.5-1.4) 07/19/17 05:15 Sodium 135 mEq/L (136-145) L 07/23/17 05:00 Potassium 3.7 mEq/L (3.5-5.1) 07/23/17 05:00 Chloride 105 mEq/L (98-107) 07/23/17 05:00 Carbon Dioxide 25.7 mEq/L (21.0-31.0) 07/23/17 05:00 Anion Gap 8.0 (7.0-16.0) 07/23/17 05:00 BUN 8 mg/dL (7-25) 07/23/17 05:00 Creatinine 0.6 mg/dL (0.6-1.2) 07/23/17 05:00 Est GFR ( Amer) > 60.0 ml/min (>90) 07/23/17 05:00 Est GFR (Non-Af Amer) > 60.0 ml/min 07/23/17 05:00 BUN/Creatinine Ratio 13.3 07/23/17 05:00 Glucose 142 mg/dL (70-105) H 07/23/17 05:00 Whole Bld Lactic Acid 1.73 mmol/L (0.60-1.99) 07/18/17 23:00 Calcium 8.5 mg/dL (8.6-10.3) L 07/23/17 05:00 Magnesium 2.1 mg/dL (1.9-2.7) 07/19/17 05:15 Iron 10 ug/dL (27-159) L 07/18/17 23:00 TIBC 267 ug/dL (250-450) 07/18/17 23:00 Iron Saturation 4 % (15-55) L 07/18/17 23:00 Unsaturated IBC 257 ug/dL (131-425) 07/18/17 23:00 Ferritin 236 ng/mL (15-150) H 07/18/17 23:00 Total Bilirubin 0.2 mg/dL (0.3-1.0) L 07/23/17 05:00 AST 13 U/L (13-39) 07/23/17 05:00 ALT 12 U/L (7-52) 07/23/17 05:00 Alkaline Phosphatase 87 U/L (34-104) 07/23/17 05:00 Total Protein 5.8 gm/dL (6.0-8.3) L 07/23/17 05:00 Albumin 2.5 gm/dL (3.7-5.3) L 07/23/17 05:00 Globulin 3.3 gm/dL 07/23/17 05:00 Albumin/Globulin Ratio 0.8 (1.0-1.8) L 07/23/17 05:00 Triglycerides 139 mg/dL (<150) 07/18/17 23:00 Cholesterol 100 mg/dL (<200) 07/18/17 23:00 LDL Cholesterol Direct 52 mg/dL (75-193) L 07/18/17 23:00 HDL Cholesterol 21 mg/dL (23-92) L 07/18/17 23:00 Free T4 1.63 ng/dL (0.82-1.77) 07/18/17 23:00 TSH 0.59 uIU/ml (0.34-5.60) 07/18/17 23:00 Beta HCG, Quant < 1 mIU/mL (0-0) H 07/19/17 12:52 Vancomycin Trough 16.2 ug/mL (10-20) 07/22/17 15:00 Urine Opiates Screen POSITIVE (NEGATIVE) H 07/22/17 18:00 Urine Methadone Screen POSITIVE (NEGATIVE) 07/22/17 18:00 Ur Barbiturates Screen NEGATIVE (NEGATIVE) 07/22/17 18:00 Ur Tricyclics Screen NEGATIVE (NEGATIVE) 07/22/17 18:00 Ur Phencyclidine Scrn NEGATIVE (NEGATIVE) 07/22/17 18:00 Amphetamines Screen NEGATIVE (NEGATIVE) 07/22/17 18:00 U Methamphetamines Scrn POSITIVE (NEGATIVE) H 07/22/17 18:00 U Benzodiazepines Scrn POSITIVE (NEGATIVE) H 07/22/17 18:00 U Cocaine Metab Screen NEGATIVE (NEGATIVE) 07/22/17 18:00 U Cannabinoids Screen NEGATIVE (NEGATIVE) 07/22/17 18:00 Hepatitis A IgM Ab Negative (Negative) 07/19/17 09:05 Hep Bs Antigen Negative (Negative) 07/19/17 09:05 Hep B Core IgM Ab Negative (Negative) 07/19/17 09:05 Hepatitis C Antibody >11.0 s/co ratio (0.0-0.9) H 07/19/17 09:05 HIV 1&2 Antibody Screen NEGATIVE (NEG) 07/19/17 05:45 - Physical Exam Vitals and I&O: Vital Signs Temp 97.6 F 07/24/17 20:00 Pulse 101 07/24/17 20:00 Resp 17 07/24/17 21:00 BP 114/77 07/24/17 20:00 Pulse Ox 98 07/24/17 20:00 Intake & Output 07/24/17 07/24/17 07/25/17 06:59 18:59 06:59 Intake Total 1650 1360 Output Total 22 0 Balance 1628 1360 Weight (lbs) 58.967 kg 58.967 kg Intake: Intake, IV Amount 1350 855 D5-0.9NS w/40 mEq KCL 1, 1000 805 000 ml @ 100 mls/hr IV . Q10H [facility] Rx#:[id number] Piperacillin Sodium/ 50 Tazobact 3.375 gm In Sodium Chloride 0.9% 50 ml @ 100 mls/hr IV Q6HR [facility] Rx#:[id number] Vancomycin HCl 1 gm In 250 Sodium Chloride 0.9% 250 ml @ 165 mls/hr IV Q8H [facility] Rx#:[id number] ceFAZolin 1 gm In 50 50 Dextrose 5% 50 ml @ 100 mls/hr IV Q8H [facility] Rx#: [id number] Oral 300 500 Other 5 Output: Chest Tube Drainage 0 0 Left Lateral Chest 0 0 Urine 0 Stool 2 Other 20 Other: # Bowel Movements 0 Weight Source Bedscale Bedscale Active Medications: Current Medications [place] Oil/[place] Balsam/Trypsin (Venelex) 1 appl TP BID JONELLE Stop: 09/20/17 16:59 Last Admin: 07/24/17 16:32 Dose: 1 appl Ferrous Sulfate (Iron) 325 mg PO BID [facility] Stop: 09/18/17 08:59 Last Admin: 07/24/17 16:29 Dose: 325 mg Potassium Chloride/Dextrose/Sod Cl (D5-0.9ns W/40 Meq Kcl) 1,000 mls @ 100 mls/ hr IV .Q10H [facility] Stop: 09/17/17 09:59 Last Admin: 07/24/17 08:43 Dose: 100 mls/hr Cefazolin Sodium 1 gm/ (Dextrose) 50 mls @ 100 mls/hr IV Q8H [facility] Stop: 09/22/17 00:59 Last Admin: 07/24/17 16:30 Dose: 100 mls/hr Lactobacillus Rhamnosus (Culturelle 15b) 1 each PO DAILY [facility] Stop: 09/20/17 08:59 Last Admin: 07/24/17 08:35 Dose: 1 each Lorazepam (Ativan) 1 mg PO Q6HR PRN; Protocol PRN Reason: anxiety Stop: 09/19/17 10:55 Last Admin: 07/23/17 02:24 Dose: 1 mg Miscellaneous (Probiotic Screen) 1 ea [facility] PRN PRN PRN Reason: PROTOCOL Stop: 09/19/17 12:14 Morphine Sulfate (Morphine) 2 mg IVP Q4HR PRN PRN Reason: pain Stop: 09/17/17 09:31 Last Admin: 07/24/17 13:31 Dose: 2 mg Nicotine (Nicotine Transdermal System) 21 mg TD DAILY [facility] Stop: 09/21/17 20:44 Last Admin: 07/24/17 08:35 Dose: 21 mg General: no acute distress, well developed, well nourished HEENT: atraumatic, normocephalic, PERRLA, EOMI Neck: supple, no thyromegaly, no lymphadenopathy Cardiovascular: S1S2, regular Lungs: clear to auscultation bilaterally, clear to percussion, other (ct on left ) Abdomen: soft, no tender, no distended Extremities: other (swelling of the right leg improving.), no cyanosis, no clubbing, no edema Neurological: awake, alert, oriented - Procedures Procedures: Procedures Procedure Code Date ROSSANA SUBQ TISSUE 20 SQ CM/< 18857 07/18/17 DPT ADMINISTRATION 99.39 08/05/14 DRAINAGE OF SKIN ABSCESS 07966 08/05/14 EXCISION OF L UP LEG SUBCU/FASCIA, OPEN APPROACH [id number] 07/18/17 EXCISION OF R LOW LEG SUBCU/FASCIA, OPEN APPROACH [id number] 07/18/17 OTHER SKIN & SUBQ I D 86.04 08/05/14 Infectious Disease Assmt/Plan - Assessment Assessment: 1. Sepsis on presentation. 2. Abscess right leg.Cellulitis of the right leg. I strongly suspect myositis of the right leg. 3. Left leg ulcer. 4. h/o IVDA. 5. MSSA infection. 6. Left pneumothorax. -> Left sided chest tube placement. - Plan Plan: Continue. ancef. Wound care. when chest tube is removed, dc patient, on oral keflex x 2 weeks. Nutritional Asmnt/Malnutr-PDOC - Dietary Evaluation Malnutrition Findings (Please click <Entered> for more info): Nutritional Asmnt/Malnutrition Start: 07/20/17 15: 22 Text: Status: Complete Freq: Document 07/20/17 15:22 HEN (Rec: 07/20/17 15:35 HEN [email or web address]) Nutritional Asmnt/Malnutrition Patient General Information Nutritional Screening High Risk Consult Diagnosis cellulitis Pertinent Medical Hx/Surgical Hx heroin addiction Subjective Information Consult received for multiple wounds. Pt seen lying in bed, awake and alert. Pt reported appetite normal as usual, no wt change noted. Pt dislike milk. Pt had debridement on . Per RN, pt had many food from outside. Current Diet [facility]/ [facility] Pertinent Medications Iron, piperacillin, D5-0.9ns w 40 meq kcl, vancomycin Pertinent Labs 07/20 Na 136, K 3.3, Cl 107, Cr 0.4, Glucose 110, Ca 8.4 Nutritional Hx/Data Height 1.63 m Height (Calculated Centimeters) 162.6 Current Weight (lbs) 58.967 kg Weight (Calculated Kilograms) 59.0 Weight (Calculated Grams) 48989.0 [place] Body Weight 120 Body Mass Index (BMI) 22.3 Weight Status Overweight GI Symptoms GI Symptoms None Last BM no record Difficult in: None Skin Integrity/Comment: reddened to right hip, left lower leg, ulceration to right lower leg. Current %PO Good (75-100%) Estimated Nutritional Goals BEE in Kcals: Using Current wt Calories/Kcals/Kg 25-30 Kcals Calculated 4747-7704 Protein: Using Current wt Protein g/k-1.2 Protein Calculated 59-71 Fluid: ml 1475-1770ml (1ml/kcal) Nutritional Problem 1. Problem Problem increased nutrition needs ( protein) Etiology increased metabolic demand for wound healing Signs/Symptoms: ulceration to right lower leg Malnutrition Alert Protein-Calorie Malnutrition N/A Is there a minimum of two criteria No selected? Query Text:Check all the applicable criteria. A minimum of two criteria are recommended for diagnosis of either severe or non-severe malnutrition. Intervention/Recommendation Comments 1. Recommend regular diet considering no hx of DM. 2. Monitor PO intake, wt, labs and skin integrity 3. F/U as moderate risk in 3-5 days, 07/23-07/25 Expected Outcomes/Goals Expected Outcomes/Goals 1. PO intake to meet at least 75% of nutritional needs. 2. Wt stability, wound to heal , labs to approach WNL.
[2017-07-25] MEDS: Morphine Sulfate 4 mg/mL 1mL Syr IVP PRN ×2 (05:41→17:23)
[2017-07-25] MEDS: D5-0.9NS w/40 mEq KCL 1,000 ML IV SCH (05:42)
[2017-07-25 06:03] LABS: pH 7.45 (7.35-7.45)
[2017-07-25 06:04] LABS: ALLEN TEST yes
[2017-07-25 06:19] LABS: ALB/GLOB RATIO 0.8 (1.0-1.8); ALBUMIN 2.8 gm/dL (3.7-5.3); ALKALINE PHOSPHATASE 88 U/L (34-104); ANION GAP 9.6 (7.0-16.0); BILIRUBIN,TOTAL 0.2 mg/dL (0.3-1.0); BUN - UREA NITROGEN 9 mg/dL (7-25); CARBON DIOXIDE 26.4 mEq/L (21.0-31.0); CHLORIDE 105 mEq/L (98-107); CREATININE - SERUM 0.6 mg/dL (0.6-1.2); GFR AFRICAN-AMERICAN > 60.0 ml/min (>90); GFR NON AFRICAN-AMERICAN > 60.0 ml/min; GLUCOSE 149 mg/dL (70-105); SGOT 13 U/L (13-39); SGPT/ALT 11 U/L (7-52); SODIUM SERUM 137 mEq/L (136-145); TOTAL PROTEIN,SERUM 6.3 gm/dL (6.0-8.3)
[2017-07-25 07:27] LABS: % BASOPHILS 0.3 % (0.0-2.0); % LYMPHOCYTES 21.1 % (20.0-50.0); % MONOCYTES 6.9 % (2.0-10.0); % NEUTROPHILS 66.7 % (40.0-80.0); EOSINOPHILE ABSOLUTE 0.6 Th/cmm (0.1-0.4); HEMOGLOBIN 8.2 gm/dL (12-16); LYMPHOCYTE ABSOLUTE 2.5 Th/cmm (1.5-3.0); MEAN CELL VOLUME 74.7 fl (81-100); MEAN CORPUSCULAR HEMOGLOBIN 24.5 pg (27.0-31.0); MEAN CORPUSCULAR HGB CONC 32.7 pg (28.0-36.0); MEAN PLATELET VOLUME 6.4 fl; MONOCYTE ABSOLUTE 0.8 Th/cmm (0.3-1.0); PLATELET COUNT 547 Th/cmm (150-400); RED BLOOD COUNT 3.35 Mil/cmm (3.80-5.10); RED CELL DISTRIBUTION WIDTH 14.6 % (11.5-20.0); WHITE BLOOD COUNT 11.9 Th/cmm (4.8-10.8)
[2017-07-25] MEDS: Ferrous Sulfate 325 MG TAB PO SCH ×2 (09:15→17:23)
[2017-07-25] MEDS: Nicotine 21 mg/24 hr Tdm TD SCH (09:15)
[2017-07-25] MEDS: Lactobacillus Rhamnosus GG 15 Billion CFU CAP.SPRINK PO SCH (09:15)
--- NOTE | 2017-07-25 11:02 | General Progress Note ---
Subjective - Review of Systems Service Date: 07/25/17 Events since last encounter: DC chest tube suction if no pneumo tomorrow remove chest tube Objective - Results Result Diagrams: 07/25/17 06:40 07/25/17 05:15 Recent Labs: Laboratory Last Values WBC 11.9 Th/cmm (4.8-10.8) H 07/25/17 06:40 RBC 3.35 Mil/cmm (3.80-5.10) L 07/25/17 06:40 Hgb 8.2 gm/dL (12-16) L 07/25/17 06:40 Hct 25.0 % (41.0-60) L 07/25/17 06:40 MCV 74.7 fl (81-100) L 07/25/17 06:40 MCH 24.5 pg (27.0-31.0) L 07/25/17 06:40 MCHC Differential 32.7 pg (28.0-36.0) 07/25/17 06:40 RDW 14.6 % (11.5-20.0) 07/25/17 06:40 Plt Count 547 Th/cmm (150-400) H 07/25/17 06:40 MPV 6.4 fl 07/25/17 06:40 Neutrophils % 66.7 % (40.0-80.0) 07/25/17 06:40 Band Neutrophils % 1 % (0-10) 07/18/17 23:00 Lymphocytes % 21.1 % (20.0-50.0) 07/25/17 06:40 Monocytes % 6.9 % (2.0-10.0) 07/25/17 06:40 Eosinophils % 5.0 % (0.0-5.0) 07/25/17 06:40 Basophils % 0.3 % (0.0-2.0) 07/25/17 06:40 Neutrophils (Manual) 80 % (40-80) 07/18/17 23:00 Lymphocytes 15 % (20-50) L 07/18/17 23:00 Monocytes 4 % (2-10) 07/18/17 23:00 Platelet Estimate INCREASED PLATELETS (NORMAL) 07/18/17 23:00 Microcytosis 1+ 07/18/17 23:00 PT 11.7 SECONDS (9.5-11.5) H 07/19/17 05:15 INR 1.12 (0.5-1.4) 07/19/17 05:15 Specimen Source arterial 07/25/17 05:00 Sample Site rr 07/25/17 05:00 pH 7.45 (7.35-7.45) 07/25/17 05:00 pCO2 39.0 mmHg (35.0-45.0) 07/25/17 05:00 pO2 140.0 mmHg (80.0-100.0) H 07/25/17 05:00 HCO3 27.3 mEq/L (20.0-26.0) H 07/25/17 05:00 Base Excess 3.0 mEq/L (-3.0-3.0) 07/25/17 05:00 O2 Saturation 99.0 % (92.0-100.0) 07/25/17 05:00 Jacob Test yes 07/25/17 05:00 Vent Rate n/a 07/25/17 05:00 Inspired O2 21 07/25/17 05:00 Tidal Volume n/a 07/25/17 05:00 PEEP n/a 07/25/17 05:00 Pressure (ins/psv/peep) n/a 07/25/17 05:00 Critical Value abroedel safety person 07/25/17 05:00 Sodium 137 mEq/L (136-145) 07/25/17 05:15 Potassium 4.0 mEq/L (3.5-5.1) 07/25/17 05:15 Chloride 105 mEq/L (98-107) 07/25/17 05:15 Carbon Dioxide 26.4 mEq/L (21.0-31.0) 07/25/17 05:15 Anion Gap 9.6 (7.0-16.0) 07/25/17 05:15 BUN 9 mg/dL (7-25) 07/25/17 05:15 Creatinine 0.6 mg/dL (0.6-1.2) 07/25/17 05:15 Est GFR ( Amer) > 60.0 ml/min (>90) 07/25/17 05:15 Est GFR (Non-Af Amer) > 60.0 ml/min 07/25/17 05:15 BUN/Creatinine Ratio 15.0 07/25/17 05:15 Glucose 149 mg/dL (70-105) H 07/25/17 05:15 Whole Bld Lactic Acid 1.73 mmol/L (0.60-1.99) 07/18/17 23:00 Calcium 9.0 mg/dL (8.6-10.3) 07/25/17 05:15 Magnesium 2.1 mg/dL (1.9-2.7) 07/19/17 05:15 Iron 10 ug/dL (27-159) L 07/18/17 23:00 TIBC 267 ug/dL (250-450) 07/18/17 23:00 Iron Saturation 4 % (15-55) L 07/18/17 23:00 Unsaturated IBC 257 ug/dL (131-425) 07/18/17 23:00 Ferritin 236 ng/mL (15-150) H 07/18/17 23:00 Total Bilirubin 0.2 mg/dL (0.3-1.0) L 07/25/17 05:15 AST 13 U/L (13-39) 07/25/17 05:15 ALT 11 U/L (7-52) 07/25/17 05:15 Alkaline Phosphatase 88 U/L (34-104) 07/25/17 05:15 Total Protein 6.3 gm/dL (6.0-8.3) 07/25/17 05:15 Albumin 2.8 gm/dL (3.7-5.3) L 07/25/17 05:15 Globulin 3.5 gm/dL 07/25/17 05:15 Albumin/Globulin Ratio 0.8 (1.0-1.8) L 07/25/17 05:15 Triglycerides 139 mg/dL (<150) 07/18/17 23:00 Cholesterol 100 mg/dL (<200) 07/18/17 23:00 LDL Cholesterol Direct 52 mg/dL (75-193) L 07/18/17 23:00 HDL Cholesterol 21 mg/dL (23-92) L 07/18/17 23:00 Free T4 1.63 ng/dL (0.82-1.77) 07/18/17 23:00 TSH 0.59 uIU/ml (0.34-5.60) 07/18/17 23:00 Beta HCG, Quant < 1 mIU/mL (0-0) H 07/19/17 12:52 Vancomycin Trough 16.2 ug/mL (10-20) 07/22/17 15:00 Urine Opiates Screen POSITIVE (NEGATIVE) H 07/22/17 18:00 Urine Methadone Screen POSITIVE (NEGATIVE) 07/22/17 18:00 Ur Barbiturates Screen NEGATIVE (NEGATIVE) 07/22/17 18:00 Ur Tricyclics Screen NEGATIVE (NEGATIVE) 07/22/17 18:00 Ur Phencyclidine Scrn NEGATIVE (NEGATIVE) 07/22/17 18:00 Amphetamines Screen NEGATIVE (NEGATIVE) 07/22/17 18:00 U Methamphetamines Scrn POSITIVE (NEGATIVE) H 07/22/17 18:00 U Benzodiazepines Scrn POSITIVE (NEGATIVE) H 07/22/17 18:00 U Cocaine Metab Screen NEGATIVE (NEGATIVE) 07/22/17 18:00 U Cannabinoids Screen NEGATIVE (NEGATIVE) 07/22/17 18:00 Hepatitis A IgM Ab Negative (Negative) 07/19/17 09:05 Hep Bs Antigen Negative (Negative) 07/19/17 09:05 Hep B Core IgM Ab Negative (Negative) 07/19/17 09:05 Hepatitis C Antibody >11.0 s/co ratio (0.0-0.9) H 07/19/17 09:05 HIV 1&2 Antibody Screen NEGATIVE (NEG) 07/19/17 05:45 - Physical Exam Vitals and I&O: Vital Signs Temp 97.6 F 07/25/17 07:57 Pulse 90 07/25/17 07:57 Resp 17 07/25/17 07:57 BP 102/63 07/25/17 07:57 Pulse Ox 97 07/25/17 07:57 Intake & Output 07/24/17 07/25/17 07/25/17 18:59 06:59 18:59 Intake Total 2410 50 Output Total 0 Balance 2410 50 Weight (lbs) 58.967 kg Intake: Intake, IV Amount 1905 50 D5-0.9NS w/40 mEq KCL 1, 1805 000 ml @ 100 mls/hr IV . Q10H JONELLE Rx#:[id number] ceFAZolin 1 gm In 100 50 Dextrose 5% 50 ml @ 100 mls/hr IV Q8H JONELLE Rx#: [id number] Oral 500 Other 5 Output: Chest Tube Drainage 0 Left Lateral Chest 0 Urine 0 Other: Weight Source Bedscale Active Medications: Current Medications [place] Oil/[place] Balsam/Trypsin (Venelex) 1 appl TP BID JONELLE Stop: 09/20/17 16:59 Last Admin: 07/24/17 16:32 Dose: 1 appl Ferrous Sulfate (Iron) 325 mg PO BID JONELLE Stop: 09/18/17 08:59 Last Admin: 07/25/17 09:15 Dose: 325 mg Potassium Chloride/Dextrose/Sod Cl (D5-0.9ns W/40 Meq Kcl) 1,000 mls @ 100 mls/ hr IV .Q10H JONELLE Stop: 09/17/17 09:59 Last Admin: 07/25/17 05:42 Dose: 100 mls/hr Cefazolin Sodium 1 gm/ (Dextrose) 50 mls @ 100 mls/hr IV Q8H JONELEL Stop: 09/22/17 00:59 Last Admin: 07/25/17 09:14 Dose: 100 mls/hr Lactobacillus Rhamnosus (Culturelle 15b) 1 each PO DAILY JONELLE Stop: 09/20/17 08:59 Last Admin: 07/25/17 09:15 Dose: 1 each Lorazepam (Ativan) 1 mg PO Q6HR PRN; Protocol PRN Reason: anxiety Stop: 09/19/17 10:55 Last Admin: 07/25/17 00:47 Dose: 1 mg Miscellaneous (Probiotic Screen) 1 ea MC PRN PRN PRN Reason: PROTOCOL Stop: 09/19/17 12:14 Morphine Sulfate (Morphine) 2 mg IVP Q4HR PRN PRN Reason: pain Stop: 09/17/17 09:31 Last Admin: 07/25/17 05:41 Dose: 2 mg Nicotine (Nicotine Transdermal System) 21 mg TD DAILY JONELLE Stop: 09/21/17 20:44 Last Admin: 07/25/17 09:15 Dose: Not Given General: Alert, Oriented x3, Cooperative, No acute distress HEENT: Atraumatic, PERRLA, EOMI Neck: Supple, JVD Cardiovascular: Regular rate, Normal S1, Normal S2 Lungs: Clear to auscultation Abdomen: Bowel sounds Extremities: Other (right thigh intact dressings noted.) - Procedures Procedures: Procedures Procedure Code Date ROSSANA SUBQ TISSUE 20 SQ CM/< 16626 07/18/17 DPT ADMINISTRATION 99.39 08/05/14 DRAINAGE OF L PLEURAL CAV WITH DRAIN DEV, PERC APPROACH [id number] 07/18/17 DRAINAGE OF SKIN ABSCESS 35563 08/05/14 EXCISION OF L UP LEG SUBCU/FASCIA, OPEN APPROACH [id number] 07/18/17 EXCISION OF R LOW LEG SUBCU/FASCIA, OPEN APPROACH [id number] 07/18/17 INSERT TUNNELED CV CATH 27477 07/18/17 INSERTION OF CHEST TUBE 09679 07/18/17 INSERTION OF INFUSION DEV INTO L SUBCLAV VEIN, PERC APPROACH [id number] 07/18/17 OTHER SKIN & SUBQ I D 86.04 08/05/14 Nutritional Asmnt/Malnutr-PDOC - Dietary Evaluation Malnutrition Findings (Please click <Entered> for more info): Nutritional Asmnt/Malnutrition Start: 07/20/17 15: 22 Text: Status: Complete Freq: Document 07/20/17 15:22 [facility] (Rec: 07/20/17 15:35 [facility] Nutritional Asmnt/Malnutrition Patient General Information Nutritional Screening High Risk Consult Diagnosis cellulitis Pertinent Medical Hx/Surgical Hx heroin addiction Subjective Information Consult received for multiple wounds. Pt seen lying in bed, awake and alert. Pt reported appetite normal as usual, no wt change noted. Pt dislike milk. Pt had debridement on . Per RN, pt had many food from outside. Current Diet Order/ Nutrition Support [address] Pertinent Medications Iron, piperacillin, D5-0.9ns w 40 meq kcl, vancomycin Pertinent Labs 07/20 Na 136, K 3.3, Cl 107, Cr 0.4, Glucose 110, Ca 8.4 Nutritional Hx/Data Height 1.63 m Height (Calculated Centimeters) 162.6 Current Weight (lbs) 58.967 kg Weight (Calculated Kilograms) 59.0 Weight (Calculated Grams) 85700.0 [place] Body Weight 120 Body Mass Index (BMI) 22.3 Weight Status Overweight GI Symptoms GI Symptoms None Last BM no record Difficult in: None Skin Integrity/Comment: reddened to right hip, left lower leg, ulceration to right lower leg. Current %PO Good (75-100%) Estimated Nutritional Goals BEE in Kcals: Using Current wt Calories/Kcals/Kg 25-30 Kcals Calculated 5101-3084 Protein: Using Current wt Protein g/k-1.2 Protein Calculated 59-71 Fluid: ml 1475-1770ml (1ml/kcal) Nutritional Problem 1. Problem Problem increased nutrition needs ( protein) Etiology increased metabolic demand for wound healing Signs/Symptoms: ulceration to right lower leg Malnutrition Alert Protein-Calorie Malnutrition N/A Is there a minimum of two criteria No selected? Query Text:Check all the applicable criteria. A minimum of two criteria are recommended for diagnosis of either severe or non-severe malnutrition. Intervention/Recommendation Comments 1. Recommend regular diet considering no hx of DM. 2. Monitor PO intake, wt, labs and skin integrity 3. F/U as moderate risk in 3-5 days, 07/23-07/25 Expected Outcomes/Goals Expected Outcomes/Goals 1. PO intake to meet at least 75% of nutritional needs. 2. Wt stability, wound to heal , labs to approach WNL.
--- NOTE | 2017-07-25 13:26 | Diagnostic Imaging Report ---
CHEST X-RAY: AP view INDICATION: Pneumonia, pneumothorax COMPARISON: 07/24/2017 FINDINGS: Left chest tube is been more inferiorly positioned since prior exam. No gross pneumothorax is identified. Left-sided subclavian central line is stable. No focal consolidation or effusions. Heart size is normal. IMPRESSION: Interval more inferior position of the left chest tube now seen along the medial aspect of the left mid to lower hemithorax. No gross pneumothorax identified.
[2017-07-25] MEDS: Venelex 60gm Tube TP SCH ×2 (17:07)
--- NOTE | 2017-07-25 23:43 | Infectious Disease Prog Note ---
Infectious Disease Subjective - Review of Systems Service Date: 07/25/17 Subjective: No fever. Infectious Disease Objective - Results Result Diagrams: 07/25/17 06:40 07/25/17 05:15 Recent Labs: Laboratory Last Values WBC 11.9 Th/cmm (4.8-10.8) H 07/25/17 06:40 RBC 3.35 Mil/cmm (3.80-5.10) L 07/25/17 06:40 Hgb 8.2 gm/dL (12-16) L 07/25/17 06:40 Hct 25.0 % (41.0-60) L 07/25/17 06:40 MCV 74.7 fl (81-100) L 07/25/17 06:40 MCH 24.5 pg (27.0-31.0) L 07/25/17 06:40 MCHC Differential 32.7 pg (28.0-36.0) 07/25/17 06:40 RDW 14.6 % (11.5-20.0) 07/25/17 06:40 Plt Count 547 Th/cmm (150-400) H 07/25/17 06:40 MPV 6.4 fl 07/25/17 06:40 Neutrophils % 66.7 % (40.0-80.0) 07/25/17 06:40 Band Neutrophils % 1 % (0-10) 07/18/17 23:00 Lymphocytes % 21.1 % (20.0-50.0) 07/25/17 06:40 Monocytes % 6.9 % (2.0-10.0) 07/25/17 06:40 Eosinophils % 5.0 % (0.0-5.0) 07/25/17 06:40 Basophils % 0.3 % (0.0-2.0) 07/25/17 06:40 Neutrophils (Manual) 80 % (40-80) 07/18/17 23:00 Lymphocytes 15 % (20-50) L 07/18/17 23:00 Monocytes 4 % (2-10) 07/18/17 23:00 Platelet Estimate INCREASED PLATELETS (NORMAL) 07/18/17 23:00 Microcytosis 1+ 07/18/17 23:00 PT 11.7 SECONDS (9.5-11.5) H 07/19/17 05:15 INR 1.12 (0.5-1.4) 07/19/17 05:15 Specimen Source arterial 07/25/17 05:00 Sample Site rr 07/25/17 05:00 pH 7.45 (7.35-7.45) 07/25/17 05:00 pCO2 39.0 mmHg (35.0-45.0) 07/25/17 05:00 pO2 140.0 mmHg (80.0-100.0) H 07/25/17 05:00 HCO3 27.3 mEq/L (20.0-26.0) H 07/25/17 05:00 Base Excess 3.0 mEq/L (-3.0-3.0) 07/25/17 05:00 O2 Saturation 99.0 % (92.0-100.0) 07/25/17 05:00 Jacob Test yes 07/25/17 05:00 Vent Rate n/a 07/25/17 05:00 Inspired O2 21 07/25/17 05:00 Tidal Volume n/a 07/25/17 05:00 PEEP n/a 07/25/17 05:00 Pressure (ins/psv/peep) n/a 07/25/17 05:00 Critical Value abroedel matrix repairer 07/25/17 05:00 Sodium 137 mEq/L (136-145) 07/25/17 05:15 Potassium 4.0 mEq/L (3.5-5.1) 07/25/17 05:15 Chloride 105 mEq/L (98-107) 07/25/17 05:15 Carbon Dioxide 26.4 mEq/L (21.0-31.0) 07/25/17 05:15 Anion Gap 9.6 (7.0-16.0) 07/25/17 05:15 BUN 9 mg/dL (7-25) 07/25/17 05:15 Creatinine 0.6 mg/dL (0.6-1.2) 07/25/17 05:15 Est GFR ( Amer) > 60.0 ml/min (>90) 07/25/17 05:15 Est GFR (Non-Af Amer) > 60.0 ml/min 07/25/17 05:15 BUN/Creatinine Ratio 15.0 07/25/17 05:15 Glucose 149 mg/dL (70-105) H 07/25/17 05:15 Whole Bld Lactic Acid 1.73 mmol/L (0.60-1.99) 07/18/17 23:00 Calcium 9.0 mg/dL (8.6-10.3) 07/25/17 05:15 Magnesium 2.1 mg/dL (1.9-2.7) 07/19/17 05:15 Iron 10 ug/dL (27-159) L 07/18/17 23:00 TIBC 267 ug/dL (250-450) 07/18/17 23:00 Iron Saturation 4 % (15-55) L 07/18/17 23:00 Unsaturated IBC 257 ug/dL (131-425) 07/18/17 23:00 Ferritin 236 ng/mL (15-150) H 07/18/17 23:00 Total Bilirubin 0.2 mg/dL (0.3-1.0) L 07/25/17 05:15 AST 13 U/L (13-39) 07/25/17 05:15 ALT 11 U/L (7-52) 07/25/17 05:15 Alkaline Phosphatase 88 U/L (34-104) 07/25/17 05:15 Total Protein 6.3 gm/dL (6.0-8.3) 07/25/17 05:15 Albumin 2.8 gm/dL (3.7-5.3) L 07/25/17 05:15 Globulin 3.5 gm/dL 07/25/17 05:15 Albumin/Globulin Ratio 0.8 (1.0-1.8) L 07/25/17 05:15 Triglycerides 139 mg/dL (<150) 07/18/17 23:00 Cholesterol 100 mg/dL (<200) 07/18/17 23:00 LDL Cholesterol Direct 52 mg/dL (75-193) L 07/18/17 23:00 HDL Cholesterol 21 mg/dL (23-92) L 07/18/17 23:00 Free T4 1.63 ng/dL (0.82-1.77) 07/18/17 23:00 TSH 0.59 uIU/ml (0.34-5.60) 07/18/17 23:00 Beta HCG, Quant < 1 mIU/mL (0-0) H 07/19/17 12:52 Vancomycin Trough 16.2 ug/mL (10-20) 07/22/17 15:00 Urine Opiates Screen POSITIVE (NEGATIVE) H 07/22/17 18:00 Urine Methadone Screen POSITIVE (NEGATIVE) 07/22/17 18:00 Ur Barbiturates Screen NEGATIVE (NEGATIVE) 07/22/17 18:00 Ur Tricyclics Screen NEGATIVE (NEGATIVE) 07/22/17 18:00 Ur Phencyclidine Scrn NEGATIVE (NEGATIVE) 07/22/17 18:00 Amphetamines Screen NEGATIVE (NEGATIVE) 07/22/17 18:00 U Methamphetamines Scrn POSITIVE (NEGATIVE) H 07/22/17 18:00 U Benzodiazepines Scrn POSITIVE (NEGATIVE) H 07/22/17 18:00 U Cocaine Metab Screen NEGATIVE (NEGATIVE) 07/22/17 18:00 U Cannabinoids Screen NEGATIVE (NEGATIVE) 07/22/17 18:00 Hepatitis A IgM Ab Negative (Negative) 07/19/17 09:05 Hep Bs Antigen Negative (Negative) 07/19/17 09:05 Hep B Core IgM Ab Negative (Negative) 07/19/17 09:05 Hepatitis C Antibody >11.0 s/co ratio (0.0-0.9) H 07/19/17 09:05 HIV 1&2 Antibody Screen NEGATIVE (NEG) 07/19/17 05:45 - Physical Exam Vitals and I&O: Vital Signs Temp 97.3 F 07/25/17 20:00 Pulse 95 07/25/17 20:00 Resp 20 07/25/17 20:00 BP 127/88 07/25/17 20:00 Pulse Ox 100 07/25/17 20:00 Intake & Output 07/25/17 07/25/17 07/26/17 06:59 18:59 06:59 Intake Total 50 700 Output Total 10 50 Balance 50 690 -50 Weight (lbs) 58.967 kg Intake: Intake, IV Amount 50 100 ceFAZolin 1 gm In 50 100 Dextrose 5% 50 ml @ 100 mls/hr IV Q8H [facility] Rx#: [id number] Oral 600 Output: Chest Tube Drainage 5 Left Lateral Chest 5 Drainage 5 50 Right Calf 5 50 Other: # Voids 3 # Bowel Movements 1 Stool Characteristics Soft Brown Weight Source Bedscale Active Medications: Current Medications [place] Oil/[place]izen [place] Balsam/Trypsin (Venelex) 1 appl TP BID JONELLE Stop: 09/20/17 16:59 Last Admin: 07/25/17 17:07 Dose: 1 appl Ferrous Sulfate (Iron) 325 mg PO BID JONELLE Stop: 09/18/17 08:59 Last Admin: 07/25/17 17:23 Dose: 325 mg Potassium Chloride/Dextrose/Sod Cl (D5-0.9ns W/40 Meq Kcl) 1,000 mls @ 100 mls/ hr IV .Q10H JONELLE Stop: 09/17/17 09:59 Last Admin: 07/25/17 05:42 Dose: 100 mls/hr Cefazolin Sodium 1 gm/ (Dextrose) 50 mls @ 100 mls/hr IV Q8H JONELLE Stop: 09/22/17 00:59 Last Infusion: 07/25/17 18:19 Dose: Infused Lactobacillus Rhamnosus (Culturelle 15b) 1 each PO DAILY JONELLE Stop: 09/20/17 08:59 Last Admin: 07/25/17 09:15 Dose: 1 each Lorazepam (Ativan) 1 mg PO Q6HR PRN; Protocol PRN Reason: anxiety Stop: 09/19/17 10:55 Last Admin: 07/25/17 20:47 Dose: 1 mg Miscellaneous (Probiotic Screen) 1 ea MC PRN PRN PRN Reason: PROTOCOL Stop: 09/19/17 12:14 Morphine Sulfate (Morphine) 2 mg IVP Q4HR PRN PRN Reason: pain Stop: 09/17/17 09:31 Last Admin: 07/25/17 17:23 Dose: 2 mg Nicotine (Nicotine Transdermal System) 21 mg TD DAILY JONELLE Stop: 09/21/17 20:44 Last Admin: 07/25/17 09:15 Dose: Not Given General: no acute distress, well developed, well nourished HEENT: atraumatic, normocephalic, PERRLA, EOMI Neck: supple, no thyromegaly Cardiovascular: S1S2, regular Lungs: clear to auscultation bilaterally, clear to percussion Abdomen: soft, no tender, no distended Extremities: other (right leg wound. swelling improving. drain in place.), no cyanosis, no clubbing, no edema Neurological: awake, alert, oriented - Procedures Procedures: Procedures Procedure Code Date ROSSANA SUBQ TISSUE 20 SQ CM/< 21847 07/18/17 DPT ADMINISTRATION 99.39 08/05/14 DRAINAGE OF L PLEURAL CAV WITH DRAIN DEV, PERC APPROACH [id number] 07/18/17 DRAINAGE OF SKIN ABSCESS 00390 08/05/14 EXCISION OF L UP LEG SUBCU/FASCIA, OPEN APPROACH [id number] 07/18/17 EXCISION OF R LOW LEG SUBCU/FASCIA, OPEN APPROACH [id number] 07/18/17 INSERT TUNNELED CV CATH 00395 07/18/17 INSERTION OF CHEST TUBE 51295 07/18/17 INSERTION OF INFUSION DEV INTO L SUBCLAV VEIN, PERC APPROACH [id number] 07/18/17 OTHER SKIN & SUBQ I D 86.04 08/05/14 Infectious Disease Assmt/Plan - Assessment Assessment: 1. Sepsis on presentation. 2. Abscess right leg.Cellulitis of the right leg. I strongly suspect myositis of the right leg. 3. Left leg ulcer. 4. h/o IVDA. 5. MSSA infection. 6. Left pneumothorax. -> Left sided chest tube placement. - Plan Plan: Continue. ancef. Wound care. when chest tube is removed, dc patient, on oral keflex x 2 weeks. Nutritional Asmnt/Malnutr-PDOC - Dietary Evaluation Malnutrition Findings (Please click <Entered> for more info): Nutritional Asmnt/Malnutrition Start: 07/20/17 15: 22 Text: Status: Complete Freq: Document 07/20/17 15:22 [facility] (Rec: 07/20/17 15:35 [email or web address] Nutritional Asmnt/Malnutrition Patient General Information Nutritional Screening High Risk Consult Diagnosis cellulitis Pertinent Medical Hx/Surgical Hx heroin addiction Subjective Information Consult received for multiple wounds. Pt seen lying in bed, awake and alert. Pt reported appetite normal as usual, no wt change noted. Pt dislike milk. Pt had debridement on . Per RN, pt had many food from outside. Current Diet Order/ [facility] Pertinent Medications Iron, piperacillin, D5-0.9ns w 40 meq kcl, vancomycin Pertinent Labs 07/20 Na 136, K 3.3, Cl 107, Cr 0.4, Glucose 110, Ca 8.4 Nutritional Hx/Data Height 1.63 m Height (Calculated Centimeters) 162.6 Current Weight (lbs) 58.967 kg Weight (Calculated Kilograms) 59.0 Weight (Calculated Grams) 51220.0 [place] Body Weight 120 Body Mass Index (BMI) 22.3 Weight Status Overweight GI Symptoms GI Symptoms None Last BM no record Difficult in: None Skin Integrity/Comment: reddened to right hip, left lower leg, ulceration to right lower leg. Current %PO Good (75-100%) Estimated Nutritional Goals BEE in Kcals: Using Current wt Calories/Kcals/Kg 25-30 Kcals Calculated 7612-4697 Protein: Using Current wt Protein g/k-1.2 Protein Calculated 59-71 Fluid: ml 1475-1770ml (1ml/kcal) Nutritional Problem 1. Problem Problem increased nutrition needs ( protein) Etiology increased metabolic demand for wound healing Signs/Symptoms: ulceration to right lower leg Malnutrition Alert Protein-Calorie Malnutrition N/A Is there a minimum of two criteria No selected? Query Text:Check all the applicable criteria. A minimum of two criteria are recommended for diagnosis of either severe or non-severe malnutrition. Intervention/Recommendation Comments 1. Recommend regular diet considering no hx of DM. 2. Monitor PO intake, wt, labs and skin integrity 3. F/U as moderate risk in 3-5 days, 07/23-07/25 Expected Outcomes/Goals Expected Outcomes/Goals 1. PO intake to meet at least 75% of nutritional needs. 2. Wt stability, wound to heal , labs to approach WNL.
--- NOTE | 2017-07-25 23:58 | Progress Notes ---
DATE: 07/25/2017 SUBJECTIVE: The patient is seen and examined. The patient stated that she feels better. She is kind of upset after the patient had a chest tube. The patient currently denies any chest pain or increasing shortness of breath. PHYSICAL EXAMINATION: VITAL SIGNS: Temperature 98, pulse is 100, respiratory rate is 18, blood pressure 114/78. HEENT: No facial asymmetry. NECK: Supple, no JVD. HEART: Regular. CHEST: Lung equal in expansion, no expiratory wheezing. Left-sided chest tube noted. ABDOMEN: Abdomen was soft. No guarding or rigidity. Bowel sounds are present. No palpable mass. EXTREMITIES: No edema. AVAILABLE DIAGNOSTIC DATA: White count of 11.9, hemoglobin 8.2, platelet count of 547. Electrolytes are within normal limit. CLINICAL IMPRESSION: 1. Left-sided pneumothorax, status post chest tube placement. 2. Iron deficiency anemia. 3. Leukocytosis. 4. History of IV heroin use. 5. Right leg cellulitis, abscess and myositis, currently on IV antibiotic. 6. Psychotic disorder. PLAN: 1. The patient is going for followup CT chest and possible removal of the chest tube. 2. Continue antibiotic. 3. Iron therapy. 4. Pain management. 5. General nursing care. 6. Follow lab. 7. Followup consult recommendation. 8. Care plan reviewed and discussed with staff. JOB# [id number]
[2017-07-26] MEDS: Morphine Sulfate 4 mg/mL 1mL Syr IVP PRN (00:59)
[2017-07-26 05:39] LABS: % BASOPHILS 0.3 % (0.0-2.0); % EOSINOPHILS 5.9 % (0.0-5.0); % LYMPHOCYTES 26.1 % (20.0-50.0); % MONOCYTES 7.3 % (2.0-10.0); % NEUTROPHILS 60.4 % (40.0-80.0); EOSINOPHILE ABSOLUTE 0.6 Th/cmm (0.1-0.4); HEMATOCRIT 24.8 % (41.0-60); HEMOGLOBIN 8.1 gm/dL (12-16); LYMPHOCYTE ABSOLUTE 2.7 Th/cmm (1.5-3.0); MEAN CELL VOLUME 74.7 fl (81-100); MEAN CORPUSCULAR HEMOGLOBIN 24.2 pg (27.0-31.0); MEAN CORPUSCULAR HGB CONC 32.5 pg (28.0-36.0); MEAN PLATELET VOLUME 6.6 fl; MONOCYTE ABSOLUTE 0.8 Th/cmm (0.3-1.0); NEUTROPHILE ABSOLUTE 6.4 Th/cmm (1.8-8.0); PLATELET COUNT 566 Th/cmm (150-400); RED BLOOD COUNT 3.32 Mil/cmm (3.80-5.10); RED CELL DISTRIBUTION WIDTH 14.4 % (11.5-20.0); WHITE BLOOD COUNT 10.5 Th/cmm (4.8-10.8)
[2017-07-26 05:57] LABS: ANION GAP 10.6 (7.0-16.0); BUN - UREA NITROGEN 17 mg/dL (7-25); CALCIUM SERUM 9.5 mg/dL (8.6-10.3); CARBON DIOXIDE 27.7 mEq/L (21.0-31.0); CHLORIDE 100 mEq/L (98-107); CREATININE - SERUM 0.6 mg/dL (0.6-1.2); GFR AFRICAN-AMERICAN > 60.0 ml/min (>90); GFR NON AFRICAN-AMERICAN > 60.0 ml/min; GLUCOSE 99 mg/dL (70-105); POTASSIUM SERUM 4.3 mEq/L (3.5-5.1); SODIUM SERUM 134 mEq/L (136-145)
--- NOTE | 2017-07-26 08:00 | Diagnostic Imaging Report ---
CT scan of the chest without intravenous contrast HISTORY: Shortness of breath Total DLP equals 197 CTDI equals 5.1 Axial sections were obtained from a level above the clavicles down to level below the diaphragm. Evaluation of the vascular and hilar structures limited due to the absence of intravenous contrast. Vascular catheter is seen extending into the superior vena cava. The heart size is normal. No abnormal mediastinal masses are seen. As noted above, evaluation the hilar structures limited due to the absence of intravenous contrast. No definite abnormal masses. No abnormal focal pulmonary parenchymal processes. No abnormal masses or nodules. No pleural fluid is seen. IMPRESSION: Negative examination Evaluation of the vascular and hilar structures limited due to the absence of intravenous contrast.
--- NOTE | 2017-07-26 09:11 | Diagnostic Imaging Report ---
Portable chest x-ray HISTORY: Pneumothorax Compared to prior exam July 25, 2017, no change in left chest tube position. No focal processes seen within the lungs. No pneumothorax. IMPRESSION: No change. No pneumothorax identified.
[2017-07-26] MEDS: Lactobacillus Rhamnosus GG 15 Billion CFU CAP.SPRINK PO SCH ×2 (09:19→09:22)
[2017-07-26] MEDS: Ferrous Sulfate 325 MG TAB PO SCH ×2 (09:19→09:22)
[2017-07-26] MEDS: Nicotine 21 mg/24 hr Tdm TD SCH (09:21)
--- NOTE | 2017-07-26 09:31 | General Progress Note ---
Subjective - Review of Systems Service Date: 07/26/17 Events since last encounter: no neumo, vamsi tube out drain right leg out may DC Objective - Results Result Diagrams: 07/26/17 04:40 07/26/17 04:40 Recent Labs: Laboratory Last Values WBC 10.5 Th/cmm (4.8-10.8) 07/26/17 04:40 RBC 3.32 Mil/cmm (3.80-5.10) L 07/26/17 04:40 Hgb 8.1 gm/dL (12-16) L 07/26/17 04:40 Hct 24.8 % (41.0-60) L 07/26/17 04:40 MCV 74.7 fl (81-100) L 07/26/17 04:40 MCH 24.2 pg (27.0-31.0) L 07/26/17 04:40 MCHC Differential 32.5 pg (28.0-36.0) 07/26/17 04:40 RDW 14.4 % (11.5-20.0) 07/26/17 04:40 Plt Count 566 Th/cmm (150-400) H 07/26/17 04:40 MPV 6.6 fl 07/26/17 04:40 Neutrophils % 60.4 % (40.0-80.0) 07/26/17 04:40 Band Neutrophils % 1 % (0-10) 07/18/17 23:00 Lymphocytes % 26.1 % (20.0-50.0) 07/26/17 04:40 Monocytes % 7.3 % (2.0-10.0) 07/26/17 04:40 Eosinophils % 5.9 % (0.0-5.0) H 07/26/17 04:40 Basophils % 0.3 % (0.0-2.0) 07/26/17 04:40 Neutrophils (Manual) 80 % (40-80) 07/18/17 23:00 Lymphocytes 15 % (20-50) L 07/18/17 23:00 Monocytes 4 % (2-10) 07/18/17 23:00 Platelet Estimate INCREASED PLATELETS (NORMAL) 07/18/17 23:00 Microcytosis 1+ 07/18/17 23:00 PT 11.7 SECONDS (9.5-11.5) H 07/19/17 05:15 INR 1.12 (0.5-1.4) 07/19/17 05:15 Specimen Source arterial 07/25/17 05:00 Sample Site rr 07/25/17 05:00 pH 7.45 (7.35-7.45) 07/25/17 05:00 pCO2 39.0 mmHg (35.0-45.0) 07/25/17 05:00 pO2 140.0 mmHg (80.0-100.0) H 07/25/17 05:00 HCO3 27.3 mEq/L (20.0-26.0) H 07/25/17 05:00 Base Excess 3.0 mEq/L (-3.0-3.0) 07/25/17 05:00 O2 Saturation 99.0 % (92.0-100.0) 07/25/17 05:00 Jacob Test yes 07/25/17 05:00 Vent Rate n/a 07/25/17 05:00 Inspired O2 21 07/25/17 05:00 Tidal Volume n/a 07/25/17 05:00 PEEP n/a 07/25/17 05:00 Pressure (ins/psv/peep) n/a 07/25/17 05:00 Critical Value abroedel leather sponger 07/25/17 05:00 Sodium 134 mEq/L (136-145) L 07/26/17 04:40 Potassium 4.3 mEq/L (3.5-5.1) 07/26/17 04:40 Chloride 100 mEq/L (98-107) 07/26/17 04:40 Carbon Dioxide 27.7 mEq/L (21.0-31.0) 07/26/17 04:40 Anion Gap 10.6 (7.0-16.0) 07/26/17 04:40 BUN 17 mg/dL (7-25) 07/26/17 04:40 Creatinine 0.6 mg/dL (0.6-1.2) 07/26/17 04:40 Est GFR ( Amer) > 60.0 ml/min (>90) 07/26/17 04:40 Est GFR (Non-Af Amer) > 60.0 ml/min 07/26/17 04:40 BUN/Creatinine Ratio 28.3 07/26/17 04:40 Glucose 99 mg/dL (70-105) 07/26/17 04:40 Whole Bld Lactic Acid 1.73 mmol/L (0.60-1.99) 07/18/17 23:00 Calcium 9.5 mg/dL (8.6-10.3) 07/26/17 04:40 Magnesium 2.1 mg/dL (1.9-2.7) 07/19/17 05:15 Iron 10 ug/dL (27-159) L 07/18/17 23:00 TIBC 267 ug/dL (250-450) 07/18/17 23:00 Iron Saturation 4 % (15-55) L 07/18/17 23:00 Unsaturated IBC 257 ug/dL (131-425) 07/18/17 23:00 Ferritin 236 ng/mL (15-150) H 07/18/17 23:00 Total Bilirubin 0.2 mg/dL (0.3-1.0) L 07/25/17 05:15 AST 13 U/L (13-39) 07/25/17 05:15 ALT 11 U/L (7-52) 07/25/17 05:15 Alkaline Phosphatase 88 U/L (34-104) 07/25/17 05:15 Total Protein 6.3 gm/dL (6.0-8.3) 07/25/17 05:15 Albumin 2.8 gm/dL (3.7-5.3) L 07/25/17 05:15 Globulin 3.5 gm/dL 07/25/17 05:15 Albumin/Globulin Ratio 0.8 (1.0-1.8) L 07/25/17 05:15 Triglycerides 139 mg/dL (<150) 07/18/17 23:00 Cholesterol 100 mg/dL (<200) 07/18/17 23:00 LDL Cholesterol Direct 52 mg/dL (75-193) L 07/18/17 23:00 HDL Cholesterol 21 mg/dL (23-92) L 07/18/17 23:00 Free T4 1.63 ng/dL (0.82-1.77) 07/18/17 23:00 TSH 0.59 uIU/ml (0.34-5.60) 07/18/17 23:00 Beta HCG, Quant < 1 mIU/mL (0-0) H 07/19/17 12:52 Vancomycin Trough 16.2 ug/mL (10-20) 07/22/17 15:00 Urine Opiates Screen POSITIVE (NEGATIVE) H 07/22/17 18:00 Urine Methadone Screen POSITIVE (NEGATIVE) 07/22/17 18:00 Ur Barbiturates Screen NEGATIVE (NEGATIVE) 07/22/17 18:00 Ur Tricyclics Screen NEGATIVE (NEGATIVE) 07/22/17 18:00 Ur Phencyclidine Scrn NEGATIVE (NEGATIVE) 07/22/17 18:00 Amphetamines Screen NEGATIVE (NEGATIVE) 07/22/17 18:00 U Methamphetamines Scrn POSITIVE (NEGATIVE) H 07/22/17 18:00 U Benzodiazepines Scrn POSITIVE (NEGATIVE) H 07/22/17 18:00 U Cocaine Metab Screen NEGATIVE (NEGATIVE) 07/22/17 18:00 U Cannabinoids Screen NEGATIVE (NEGATIVE) 07/22/17 18:00 Hepatitis A IgM Ab Negative (Negative) 07/19/17 09:05 Hep Bs Antigen Negative (Negative) 07/19/17 09:05 Hep B Core IgM Ab Negative (Negative) 07/19/17 09:05 Hepatitis C Antibody >11.0 s/co ratio (0.0-0.9) H 07/19/17 09:05 HIV 1&2 Antibody Screen NEGATIVE (NEG) 07/19/17 05:45 - Physical Exam Vitals and I&O: Vital Signs Temp 98.5 F 07/26/17 07:48 Pulse 86 07/26/17 07:48 Resp 18 07/26/17 08:00 BP 112/77 07/26/17 07:48 Pulse Ox 100 07/26/17 07:48 Intake & Output 07/25/17 07/26/17 07/26/17 18:59 06:59 18:59 Intake Total 700 450 Output Total 10 120 Balance 690 330 Weight (lbs) 58.967 kg 56.245 kg Intake: Intake, IV Amount 100 50 ceFAZolin 1 gm In 100 50 Dextrose 5% 50 ml @ 100 mls/hr IV Q8H [facility] Rx#: [id number] Oral 600 400 Output: Chest Tube Drainage 5 Left Lateral Chest 5 Drainage 5 120 Right Calf 5 120 Other: # Voids 3 4 # Bowel Movements 1 Stool Characteristics Soft Brown Weight Source Bedscale Bedscale Active Medications: Current Medications [place] Oil/[place] Balsam/Trypsin (Venelex) 1 appl TP BID JONELLE Stop: 09/20/17 16:59 Last Admin: 07/25/17 17:07 Dose: 1 appl Ferrous Sulfate (Iron) 325 mg PO BID JONELLE Stop: 09/18/17 08:59 Last Admin: 07/26/17 09:22 Dose: Not Given Potassium Chloride/Dextrose/Sod Cl (D5-0.9ns W/40 Meq Kcl) 1,000 mls @ 100 mls/ hr IV .Q10H JONELLE Stop: 09/17/17 09:59 Last Admin: 07/25/17 05:42 Dose: 100 mls/hr Cefazolin Sodium 1 gm/ (Dextrose) 50 mls @ 100 mls/hr IV Q8H JONELLE Stop: 09/22/17 00:59 Last Admin: 07/26/17 09:19 Dose: 100 mls/hr Lactobacillus Rhamnosus (Culturelle 15b) 1 each PO DAILY JONELLE Stop: 09/20/17 08:59 Last Admin: 07/26/17 09:22 Dose: Not Given Lorazepam (Ativan) 1 mg PO Q6HR PRN; Protocol PRN Reason: anxiety Stop: 09/19/17 10:55 Last Admin: 07/25/17 20:47 Dose: 1 mg Miscellaneous (Probiotic Screen) 1 ea MC PRN PRN PRN Reason: PROTOCOL Stop: 09/19/17 12:14 Morphine Sulfate (Morphine) 2 mg IVP Q4HR PRN PRN Reason: pain Stop: 09/17/17 09:31 Last Admin: 07/26/17 00:59 Dose: 2 mg Nicotine (Nicotine Transdermal System) 21 mg TD DAILY JONELLE Stop: 09/21/17 20:44 Last Admin: 07/26/17 09:21 Dose: Not Given General: Alert, Oriented x3, Cooperative, No acute distress HEENT: Atraumatic, PERRLA, EOMI Neck: Supple, JVD Cardiovascular: Regular rate, Normal S1, Normal S2 Lungs: Clear to auscultation Abdomen: Bowel sounds Extremities: Other (right thigh intact dressings noted.) - Procedures Procedures: Procedures Procedure Code Date ROSSANA SUBQ TISSUE 20 SQ CM/< 12969 07/18/17 DPT ADMINISTRATION 99.39 08/05/14 DRAINAGE OF L PLEURAL CAV WITH DRAIN DEV, PERC APPROACH [id number] 07/18/17 DRAINAGE OF SKIN ABSCESS 98152 08/05/14 EXCISION OF L UP LEG SUBCU/FASCIA, OPEN APPROACH [id number] 07/18/17 EXCISION OF R LOW LEG SUBCU/FASCIA, OPEN APPROACH [id number] 07/18/17 INSERT TUNNELED CV CATH 27736 07/18/17 INSERTION OF CHEST TUBE 95949 07/18/17 INSERTION OF INFUSION DEV INTO L SUBCLAV VEIN, PERC APPROACH [id number] 07/18/17 OTHER SKIN & SUBQ I D 86.04 08/05/14 Nutritional Asmnt/Malnutr-PDOC - Dietary Evaluation Malnutrition Findings (Please click <Entered> for more info): Nutritional Asmnt/Malnutrition Start: 07/20/17 15: 22 Text: Status: Complete Freq: Document 07/20/17 15:22 HEN (Rec: 07/20/17 15:35 LCHENG MIKE-FN) Nutritional Asmnt/Malnutrition Patient General Information Nutritional Screening High Risk Consult Diagnosis cellulitis Pertinent Medical Hx/Surgical Hx heroin addiction Subjective Information Consult received for multiple wounds. Pt seen lying in bed, awake and alert. Pt reported appetite normal as usual, no wt change noted. Pt dislike milk. Pt had debridement on . Per RN, pt had many food from outside. Current Diet Order/ Nutrition Support [facility] Pertinent Medications Iron, piperacillin, D5-0.9ns w 40 meq kcl, vancomycin Pertinent Labs 07/20 Na 136, K 3.3, Cl 107, Cr 0.4, Glucose 110, Ca 8.4 Nutritional Hx/Data Height 1.63 m Height (Calculated Centimeters) 162.6 Current Weight (lbs) 58.967 kg Weight (Calculated Kilograms) 59.0 Weight (Calculated Grams) 70194.0 [place] Body Weight 120 Body Mass Index (BMI) 22.3 Weight Status Overweight GI Symptoms GI Symptoms None Last BM no record Difficult in: None Skin Integrity/Comment: reddened to right hip, left lower leg, ulceration to right lower leg. Current %PO Good (75-100%) Estimated Nutritional Goals BEE in Kcals: Using Current wt Calories/Kcals/Kg 25-30 Kcals Calculated 6578-6037 Protein: Using Current wt Protein g/k-1.2 Protein Calculated 59-71 Fluid: ml 1475-1770ml (1ml/kcal) Nutritional Problem 1. Problem Problem increased nutrition needs ( protein) Etiology increased metabolic demand for wound healing Signs/Symptoms: ulceration to right lower leg Malnutrition Alert Protein-Calorie Malnutrition N/A Is there a minimum of two criteria No selected? Query Text:Check all the applicable criteria. A minimum of two criteria are recommended for diagnosis of either severe or non-severe malnutrition. Intervention/Recommendation Comments 1. Recommend regular diet considering no hx of DM. 2. Monitor PO intake, wt, labs and skin integrity 3. F/U as moderate risk in 3-5 days, 07/23-07/25 Expected Outcomes/Goals Expected Outcomes/Goals 1. PO intake to meet at least 75% of nutritional needs. 2. Wt stability, wound to heal , labs to approach WNL.
--- NOTE | 2017-07-26 10:11 | Operative Report ---
DATE OF SURGERY: 07/26/2017 PREOPERATIVE DIAGNOSES: 1. Left hemothorax. 2. Polydrug abuse. 3. Abscesses lower extremities. POSTOPERATIVE DIAGNOSES: 1. Left hemothorax. 2. Polydrug abuse. 3. Abscesses lower extremities. OPERATION DONE: Removal of left chest tube. PROCEDURE: They extracted the catheter once wrapped with Xeroform gauze following removal of the suture. Chest tube was removed with pressure and a 4 x 4 was taped across the chest to prevent air entry and cause pneumothorax. . The patient tolerated the procedure well. JOB# [id number]
[2017-07-26] MEDS: Venelex 60gm Tube TP SCH (12:25)
--- NOTE | 2017-07-26 15:11 | General Progress Note ---
Subjective - Review of Systems Subjective: Patient is seen and examined. Patient looks very comfortable today. Patient wants to go home. Patient is cleared by surgeon and ID MD. Objective - Results Result Diagrams: 07/26/17 04:40 07/26/17 04:40 Recent Labs: Laboratory Last Values WBC 10.5 Th/cmm (4.8-10.8) 07/26/17 04:40 RBC 3.32 Mil/cmm (3.80-5.10) L 07/26/17 04:40 Hgb 8.1 gm/dL (12-16) L 07/26/17 04:40 Hct 24.8 % (41.0-60) L 07/26/17 04:40 MCV 74.7 fl (81-100) L 07/26/17 04:40 MCH 24.2 pg (27.0-31.0) L 07/26/17 04:40 MCHC Differential 32.5 pg (28.0-36.0) 07/26/17 04:40 RDW 14.4 % (11.5-20.0) 07/26/17 04:40 Plt Count 566 Th/cmm (150-400) H 07/26/17 04:40 MPV 6.6 fl 07/26/17 04:40 Neutrophils % 60.4 % (40.0-80.0) 07/26/17 04:40 Band Neutrophils % 1 % (0-10) 07/18/17 23:00 Lymphocytes % 26.1 % (20.0-50.0) 07/26/17 04:40 Monocytes % 7.3 % (2.0-10.0) 07/26/17 04:40 Eosinophils % 5.9 % (0.0-5.0) H 07/26/17 04:40 Basophils % 0.3 % (0.0-2.0) 07/26/17 04:40 Neutrophils (Manual) 80 % (40-80) 07/18/17 23:00 Lymphocytes 15 % (20-50) L 07/18/17 23:00 Monocytes 4 % (2-10) 07/18/17 23:00 Platelet Estimate INCREASED PLATELETS (NORMAL) 07/18/17 23:00 Microcytosis 1+ 07/18/17 23:00 PT 11.7 SECONDS (9.5-11.5) H 07/19/17 05:15 INR 1.12 (0.5-1.4) 07/19/17 05:15 Specimen Source arterial 07/25/17 05:00 Sample Site rr 07/25/17 05:00 pH 7.45 (7.35-7.45) 07/25/17 05:00 pCO2 39.0 mmHg (35.0-45.0) 07/25/17 05:00 pO2 140.0 mmHg (80.0-100.0) H 07/25/17 05:00 HCO3 27.3 mEq/L (20.0-26.0) H 07/25/17 05:00 Base Excess 3.0 mEq/L (-3.0-3.0) 07/25/17 05:00 O2 Saturation 99.0 % (92.0-100.0) 07/25/17 05:00 Jacob Test yes 07/25/17 05:00 Vent Rate n/a 07/25/17 05:00 Inspired O2 21 07/25/17 05:00 Tidal Volume n/a 07/25/17 05:00 PEEP n/a 07/25/17 05:00 Pressure (ins/psv/peep) n/a 07/25/17 05:00 Critical Value abroedel poultry picking machine tender 07/25/17 05:00 Sodium 134 mEq/L (136-145) L 07/26/17 04:40 Potassium 4.3 mEq/L (3.5-5.1) 07/26/17 04:40 Chloride 100 mEq/L (98-107) 07/26/17 04:40 Carbon Dioxide 27.7 mEq/L (21.0-31.0) 07/26/17 04:40 Anion Gap 10.6 (7.0-16.0) 07/26/17 04:40 BUN 17 mg/dL (7-25) 07/26/17 04:40 Creatinine 0.6 mg/dL (0.6-1.2) 07/26/17 04:40 Est GFR ( Amer) > 60.0 ml/min (>90) 07/26/17 04:40 Est GFR (Non-Af Amer) > 60.0 ml/min 07/26/17 04:40 BUN/Creatinine Ratio 28.3 07/26/17 04:40 Glucose 99 mg/dL (70-105) 07/26/17 04:40 Whole Bld Lactic Acid 1.73 mmol/L (0.60-1.99) 07/18/17 23:00 Calcium 9.5 mg/dL (8.6-10.3) 07/26/17 04:40 Magnesium 2.1 mg/dL (1.9-2.7) 07/19/17 05:15 Iron 10 ug/dL (27-159) L 07/18/17 23:00 TIBC 267 ug/dL (250-450) 07/18/17 23:00 Iron Saturation 4 % (15-55) L 07/18/17 23:00 Unsaturated IBC 257 ug/dL (131-425) 07/18/17 23:00 Ferritin 236 ng/mL (15-150) H 07/18/17 23:00 Total Bilirubin 0.2 mg/dL (0.3-1.0) L 07/25/17 05:15 AST 13 U/L (13-39) 07/25/17 05:15 ALT 11 U/L (7-52) 07/25/17 05:15 Alkaline Phosphatase 88 U/L (34-104) 07/25/17 05:15 Total Protein 6.3 gm/dL (6.0-8.3) 07/25/17 05:15 Albumin 2.8 gm/dL (3.7-5.3) L 07/25/17 05:15 Globulin 3.5 gm/dL 07/25/17 05:15 Albumin/Globulin Ratio 0.8 (1.0-1.8) L 07/25/17 05:15 Triglycerides 139 mg/dL (<150) 07/18/17 23:00 Cholesterol 100 mg/dL (<200) 07/18/17 23:00 LDL Cholesterol Direct 52 mg/dL (75-193) L 07/18/17 23:00 HDL Cholesterol 21 mg/dL (23-92) L 07/18/17 23:00 Free T4 1.63 ng/dL (0.82-1.77) 07/18/17 23:00 TSH 0.59 uIU/ml (0.34-5.60) 07/18/17 23:00 Beta HCG, Quant < 1 mIU/mL (0-0) H 07/19/17 12:52 Vancomycin Trough 16.2 ug/mL (10-20) 07/22/17 15:00 Urine Opiates Screen POSITIVE (NEGATIVE) H 07/22/17 18:00 Urine Methadone Screen POSITIVE (NEGATIVE) 07/22/17 18:00 Ur Barbiturates Screen NEGATIVE (NEGATIVE) 07/22/17 18:00 Ur Tricyclics Screen NEGATIVE (NEGATIVE) 07/22/17 18:00 Ur Phencyclidine Scrn NEGATIVE (NEGATIVE) 07/22/17 18:00 Amphetamines Screen NEGATIVE (NEGATIVE) 07/22/17 18:00 U Methamphetamines Scrn POSITIVE (NEGATIVE) H 07/22/17 18:00 U Benzodiazepines Scrn POSITIVE (NEGATIVE) H 07/22/17 18:00 U Cocaine Metab Screen NEGATIVE (NEGATIVE) 07/22/17 18:00 U Cannabinoids Screen NEGATIVE (NEGATIVE) 07/22/17 18:00 Hepatitis A IgM Ab Negative (Negative) 07/19/17 09:05 Hep Bs Antigen Negative (Negative) 07/19/17 09:05 Hep B Core IgM Ab Negative (Negative) 07/19/17 09:05 Hepatitis C Antibody >11.0 s/co ratio (0.0-0.9) H 07/19/17 09:05 HIV 1&2 Antibody Screen NEGATIVE (NEG) 07/19/17 05:45 - Physical Exam Vitals and I&O: Vital Signs Temp 98.3 F 07/26/17 12:09 Pulse 85 07/26/17 12:09 Resp 18 07/26/17 12:09 BP 118/79 07/26/17 12:09 Pulse Ox 100 07/26/17 12:09 Intake & Output 07/25/17 07/26/17 07/26/17 18:59 06:59 18:59 Intake Total 700 450 50 Output Total 10 120 Balance 690 330 50 Weight (lbs) 58.967 kg 56.245 kg Intake: Intake, IV Amount 100 50 50 ceFAZolin 1 gm In 100 50 50 Dextrose 5% 50 ml @ 100 mls/hr IV Q8H JONELLE Rx#: [id number] Oral 600 400 Output: Chest Tube Drainage 5 Left Lateral Chest 5 Drainage 5 120 Right Calf 5 120 Other: # Voids 3 4 # Bowel Movements 1 Stool Characteristics Soft Brown Weight Source Bedscale Bedscale Active Medications: Current Medications [place] Oil/[place] Balsam/Trypsin (Venelex) 1 appl TP BID JONELLE Stop: 09/20/17 16:59 Last Admin: 07/26/17 12:25 Dose: Not Given Ferrous Sulfate (Iron) 325 mg PO BID JONELLE Stop: 09/18/17 08:59 Last Admin: 07/26/17 09:22 Dose: Not Given Potassium Chloride/Dextrose/Sod Cl (D5-0.9ns W/40 Meq Kcl) 1,000 mls @ 100 mls/ hr IV .Q10H JONELLE Stop: 09/17/17 09:59 Last Admin: 07/25/17 05:42 Dose: 100 mls/hr Cefazolin Sodium 1 gm/ (Dextrose) 50 mls @ 100 mls/hr IV Q8H JONELLE Stop: 09/22/17 00:59 Last Infusion: 07/26/17 09:49 Dose: Infused Lactobacillus Rhamnosus (Culturelle 15b) 1 each PO DAILY JONELLE Stop: 09/20/17 08:59 Last Admin: 07/26/17 09:22 Dose: Not Given Lorazepam (Ativan) 1 mg PO Q6HR PRN; Protocol PRN Reason: anxiety Stop: 09/19/17 10:55 Last Admin: 07/25/17 20:47 Dose: 1 mg Miscellaneous (Probiotic Screen) 1 ea MC PRN PRN PRN Reason: PROTOCOL Stop: 09/19/17 12:14 Morphine Sulfate (Morphine) 2 mg IVP Q4HR PRN PRN Reason: pain Stop: 09/17/17 09:31 Last Admin: 07/26/17 00:59 Dose: 2 mg Nicotine (Nicotine Transdermal System) 21 mg TD DAILY JONELLE Stop: 09/21/17 20:44 Last Admin: 07/26/17 09:21 Dose: Not Given General: Alert, Oriented x3, Cooperative, No acute distress HEENT: Atraumatic, PERRLA, EOMI Neck: Supple, JVD Cardiovascular: Regular rate, Normal S1, Normal S2 Lungs: Clear to auscultation Abdomen: Bowel sounds Extremities: Other (right leg intact dressings noted.) - Procedures Procedures: Procedures Procedure Code Date ROSSANA SUBQ TISSUE 20 SQ CM/< 73009 07/18/17 DPT ADMINISTRATION 99.39 08/05/14 DRAINAGE OF L PLEURAL CAV WITH DRAIN DEV, PERC APPROACH [id number] 07/18/17 DRAINAGE OF SKIN ABSCESS 48393 08/05/14 EXCISION OF L UP LEG SUBCU/FASCIA, OPEN APPROACH [id number] 07/18/17 EXCISION OF R LOW LEG SUBCU/FASCIA, OPEN APPROACH [id number] 07/18/17 INSERT TUNNELED CV CATH 60234 07/18/17 INSERTION OF CHEST TUBE 64768 07/18/17 INSERTION OF INFUSION DEV INTO L SUBCLAV VEIN, PERC APPROACH [id number] 07/18/17 OTHER SKIN & SUBQ I D 86.04 08/05/14 Assessment/Plan - Assessment Assessment: Status post I&D of the right leg abscess. Leukocytosis improving. Polysubstance abuse. Microcytic hypochromic anemia. Hypokalemia. Rule out underlying depression. Pneumothorax s/p removal of chest tube. - Plan Plan: DC to home CPOE done, Discharge summary dictated. Care plan reviewed and discussed with staff. Nutritional Asmnt/Malnutr-PDOC - Dietary Evaluation Malnutrition Findings (Please click <Entered> for more info): Nutritional Asmnt/Malnutrition Start: 07/20/17 15: 22 Text: Status: Complete Freq: Document 07/20/17 15:22 [facility] (Rec: 07/20/17 15:35 [facility] Nutritional Asmnt/Malnutrition Patient General Information Nutritional Screening High Risk Consult Diagnosis cellulitis Pertinent Medical Hx/Surgical Hx heroin addiction Subjective Information Consult received for multiple wounds. Pt seen lying in bed, awake and alert. Pt reported appetite normal as usual, no wt change noted. Pt dislike milk. Pt had debridement on . Per RN, pt had many food from outside. Current Diet [facility]/ [facility] Pertinent Medications Iron, piperacillin, D5-0.9ns w 40 meq kcl, vancomycin Pertinent Labs 07/20 Na 136, K 3.3, Cl 107, Cr 0.4, Glucose 110, Ca 8.4 Nutritional Hx/Data Height 1.63 m Height (Calculated Centimeters) 162.6 Current Weight (lbs) 58.967 kg Weight (Calculated Kilograms) 59.0 Weight (Calculated Grams) 08882.0 [place] Body Weight 120 Body Mass Index (BMI) 22.3 Weight Status Overweight GI Symptoms GI Symptoms None Last BM no record Difficult in: None Skin Integrity/Comment: reddened to right hip, left lower leg, ulceration to right lower leg. Current %PO Good (75-100%) Estimated Nutritional Goals BEE in Kcals: Using Current wt Calories/Kcals/Kg 25-30 Kcals Calculated 9301-9437 Protein: Using Current wt Protein g/k-1.2 Protein Calculated 59-71 Fluid: ml 1475-1770ml (1ml/kcal) Nutritional Problem 1. Problem Problem increased nutrition needs ( protein) Etiology increased metabolic demand for wound healing Signs/Symptoms: ulceration to right lower leg Malnutrition Alert Protein-Calorie Malnutrition N/A Is there a minimum of two criteria No selected? Query Text:Check all the applicable criteria. A minimum of two criteria are recommended for diagnosis of either severe or non-severe malnutrition. Intervention/Recommendation Comments 1. Recommend regular diet considering no hx of DM. 2. Monitor PO intake, wt, labs and skin integrity 3. F/U as moderate risk in 3-5 days, 07/23-07/25 Expected Outcomes/Goals Expected Outcomes/Goals 1. PO intake to meet at least 75% of nutritional needs. 2. Wt stability, wound to heal , labs to approach WNL.
--- NOTE | 2017-07-26 23:17 | Discharge Summary ---
DATE OF DISCHARGE: 07/26/2017 PRINCIPAL DIAGNOSES: 1. Right leg abscess, cellulitis, myositis, and fasciitis required incision and drainage. 2. Left-sided pneumothorax, status post chest tube and removal at the time of discharge. 3. Iron deficiency anemia. 4. History of IV heroin use. 5. Psychotic disorder. 6. Poor IV access required central line placement. 7. Status post sepsis. BRIEF STATEMENT FOR THE REASON FOR ADMISSION: A 27-year-old female presented to Emergency Room for evaluation of right leg abscess and swelling. When the patient was brought in Emergency Room, noted to have significant leukocytosis. The patient was in excruciating pain. The patient was admitted to the hospital for further treatment. Please refer to my dictated H and P for further information. HOSPITAL COURSE: The patient was initially admitted by Dr. Zhou, but subsequently care was transferred under my name after the patient was identified under [facility] patient. The patient was initially seen by Infectious Disease as well as the surgeon. The patient was taken to OR and had an I and D. IV antibiotic was initiated by Infectious Disease. The patient did have polysubstance abuse history. Psychiatric consultation was also requested for Dr. Wilian Sinclair. The patient was also followed by GI for initial abnormal liver function test, but subsequently the case was signed off by GI. The patient was also ruled out for endocarditis as well. The patient did have a lower extremity CT scan considering the patient had extensive cellulitis and CT scan did reveal the patient had involvement of subcutaneous defect extending to the adjacent musculature along the posterior medial aspect of upper calf region and multiple smaller collection was noted, which is consistent with inflammatory process. Based on that, the patient needed to have a long-term antibiotic IV. The patient had a poor IV access. Central line was inserted by Dr. Burns. Unfortunately, the patient did develop pneumothorax which required insertion of chest tube, which delayed the patient's discharge significantly. Followup CT chest did not reveal any pneumothorax, so his chest tube was removed as well. The patient was placed on p.o. antibiotic, local wound care was provided and the patient was instructed how to provide the wound care at home. The patient is cleared by the tour consultant, so the patient is discharged home in stable condition today. The patient was advised to take iron tablets at home and take Keflex 500 mg 2 tablets twice a day for 2 weeks as well. The patient will be followed by research group director as well as Dr. Burns in 1 week. At the time of discharge, medications were reconciled. JOB# [id number]
== END 2017-07-26 16:25 | disposition home or self-care (01) | DRG 720 ==
LOC: ER 20:10 → MSI 23:10 → TELE 07-20 18:39 → MSI 07-22 13:33 → TELE 07-24 00:26 → MSI 07-25 12:29
PROVIDERS: ADMIT Internal Medicine; ATTEND Internal Medicine
PROC: 0JBP0ZZ Excision of Left Lower Leg Subcutaneous Tissue and Fascia, Open Approach (ICD-10-PCS; principal; 2017-07-19)
PROC: 0JBL0ZZ Excision of Right Upper Leg Subcutaneous Tissue and Fascia, Open Approach (ICD-10-PCS; 2017-07-19)
PROC: 0JBM0ZZ Excision of Left Upper Leg Subcutaneous Tissue and Fascia, Open Approach (ICD-10-PCS; 2017-07-19)
PROC: 0W9B30Z Drainage of Left Pleural Cavity with Drainage Device, Percutaneous Approach (ICD-10-PCS; 2017-07-23)
PROC: 02HV33Z Insertion of Infusion Device into Superior Vena Cava, Percutaneous Approach (ICD-10-PCS; 2017-07-23)
PROC: B548ZZA Ultrasonography of Superior Vena Cava, Guidance (ICD-10-PCS; 2017-07-23)
PROC: 0JBN0ZZ Excision of Right Lower Leg Subcutaneous Tissue and Fascia, Open Approach (ICD-10-PCS; 2017-07-23)
PROC: 0WPB30Z Removal of Drainage Device from Left Pleural Cavity, Percutaneous Approach (ICD-10-PCS; 2017-07-26)
DX: A41.9 Sepsis, unspecified organism (principal); E46 Unspecified protein-calorie malnutrition; E87.1 Hypo-osmolality and hyponatremia; K92.2 Gastrointestinal hemorrhage, unspecified; L02.211 Cutaneous abscess of abdominal wall; L97.929 Non-pressure chronic ulcer of unspecified part of left lower leg with unspecified severity; L02.416 Cutaneous abscess of left lower limb; L02.415 Cutaneous abscess of right lower limb; L02.212 Cutaneous abscess of back [any part, except buttock and flank]; E87.6 Hypokalemia; D64.9 Anemia, unspecified; F11.90 Opioid use, unspecified, uncomplicated; M60.9 Myositis, unspecified; F29 Unspecified psychosis not due to a substance or known physiological condition; D50.9 Iron deficiency anemia, unspecified; B95.61 Methicillin susceptible Staphylococcus aureus infection as the cause of diseases classified elsewhere; L03.116 Cellulitis of left lower limb; L03.115 Cellulitis of right lower limb; L03.312 Cellulitis of back [any part except buttock and flank]; L03.311 Cellulitis of abdominal wall; Z68.21 Body mass index [BMI] 21.0-21.9, adult; F19.10 Other psychoactive substance abuse, uncomplicated; M72.9 Fibroblastic disorder, unspecified
CPT/HCPCS: 36415-UA; 71045-TC; 71250-TC; 73700-TC-RT; 80048-TC; 80053-TC; 80061-TC; 80074-90; 80202-TC; 80307; 82728-90; 82803-TC; 83540-90; 83550-90; 83605; 83735-TC; 84439-90; 84443-TC; 84702-TC; 85007-TC; 85025-TC; 85027-TC; 85610-TC; 86703-TC; 87070-90; J0690; J1170; J1644; J1885; J2001; J2405; J2543; J2704; J3370; J7030; X5958; X7704; Z7610